=== PATIENT | male | born 2000 | race Hispanic/Latino ===

== ENCOUNTER 2020-08-30 12:55 | Inpatient (IN) | payer SELFPAY, OTHER ==
[~2020-08-30] VITALS: Ht 180.3 cm; Wt 105.7 kg
[~2020-08-30 12:55] MED LIST: ETOMIDATE 2 MG/ML 10 ML INJ IV ONE; MIDAZOLAM HCL 2 MG/2 ML VIAL ONE; SUCCINYLCHOLINE CHLORIDE 20 MG/ML 10ML VIAL ONE; VECURONIUM BROMIDE FOR INJ 20 MG VIAL ONE; WATER STERILE 10 ML VIAL ONE
[2020-08-30 13:35] LABS: BASOPHILS # (AUTO) 0.1 (0.0-0.1); BASOPHILS % 0.3 % (0.0-1.0); EOSINOPHILS # (AUTO) 0.1 (0.0-0.4); EOSINOPHILS % 0.3 % (0.0-6.0); HEMATOCRIT 44.6 % (38.2-49.6); HEMOGLOBIN 15.2 g/dL (14.0-18.0); LYMPHOCYTES # (AUTO) 0.9 (1.0-3.2); LYMPHOCYTES % 3.4 % (18.0-39.1); MEAN CORPUSCULAR HEMOGLOBIN 28.7 pg (28-32); MEAN CORPUSCULAR HGB CONC 34.1 g/dL (31-35); MEAN CORPUSCULAR VOLUME 84.3 fL (81-99); MONOCYTES # (AUTO) 0.6 (0.2-0.8); MONOCYTES % 2.2 % (4.4-11.3); NEUTROPHILS # (AUTO) 23.5 (2.1-6.9); NEUTROPHILS % 92.3 % (38.7-80.0); PLATELET COUNT 314 x10e3/uL (140-360); RED BLOOD COUNT 5.29 x10e6/uL (4.3-5.7); RED CELL DISTRIBUTION WIDTH 12.5 % (11.7-14.4)
[2020-08-30 13:46] LABS: ALANINE AMINOTRANSFERASE 76 IU/L (0-55); ALBUMIN 2.6 g/dL (3.5-5.0); ALBUMIN/GLOBULIN RATIO 0.6 (0.8-2.0); ALKALINE PHOSPHATASE 79 IU/L (40-150); ANION GAP 13.7 mmol/L (8-16); BLOOD UREA NITROGEN 12 mg/dL (7-26); BUN/CREATININE RATIO 18 (6-25); CALCIUM 8.4 mg/dL (8.4-10.2); CARBON DIOXIDE 23 mmol/L (22-29); CHLORIDE 104 mmol/L (98-107); CREATINE KINASE 114 IU/L (30-200); CREATININE, SERUM 0.66 mg/dL (0.72-1.25); EST GLOMERULAR FILTRATION RATE > 60 ML/MIN (60-); GLUCOSE 131 mg/dL (74-118); POTASSIUM 3.7 mmol/L (3.5-5.1); SODIUM 137 mmol/L (136-145)
[2020-08-30] MEDS ORDERED: ASPIRIN 81 MG CHEW TAB PO ONE (14:45)
[2020-08-30 18:15] VITALS: BP 124/72
[2020-08-30] MEDS ORDERED: LACTATED RINGER'S 1,000 ML INJ ONE (18:45)
[2020-08-30] MEDS ORDERED: ONDANSETRON HCL INJ 2MG/ML 2ML 2 MG/ML VIAL IV PRN (18:45)
[2020-08-30] MEDS ORDERED: DEXMEDETOMIDINE 200MCG/NS 50ML 50 ML IV ONE (19:43)
[2020-08-30] MEDS: DEXMEDETOMIDINE HCL 200 MCG in SODIUM CHLORIDE 0.9% 50ML 48 ML IV SCH (19:52)
[2020-08-30] MEDS: AZITHROMYCIN 500MG/NS 250 ML 250 ML IV SCH (20:25)
[2020-08-30 20:37] LABS: CLARITY,URINE SL CLOUDY (CLEAR); COLOR,URINE ORANGE (YELLOW); KETONES,URINE TRACE (NEGATIVE); LEUKOCYTE ESTERASE ,URINE NEGATIVE (NEGATIVE); NITRITE,URINE NEGATIVE (NEGATIVE); PROTEIN,URINE DIPSTICK >=300 (NEGATIVE); URINE UROBILINOGEN 2 mg/dL (0.2 - 1)
[2020-08-30 20:49] LABS: BACTERIA,URINE MANY /HPF; EPITHELIAL CELLS,URINE FEW /LPF; MUCUS,URINE MANY (RARE)
[2020-08-30 21:00] VITALS: BP 151/99
[2020-08-30] MEDS ORDERED: CEFTRIAXONE SOD 1 GM in DEXTROSE 5% 50ML 50 ML IV SCH (21:00)
[2020-08-30] MEDS: ACETAMINOPHEN 325 MG TAB PO PRN (21:11)
[2020-08-30 21:37] VITALS: BP 151/99
[2020-08-30 22:01] VITALS: BP 124/68
[2020-08-30] MEDS ORDERED: CEFTRIAXONE SOD 1 GM VIAL ONE (22:14)
[2020-08-30] MEDS: CEFTRIAXONE SOD 1 GM in SODIUM CHLORIDE 0.9% 50ML 50 ML IV SCH (22:33)
[2020-08-30] MEDS ORDERED: SODIUM CHLORIDE 0.9% 50ML 50 ML ONE (22:40)
[2020-08-30 23:03] VITALS: BP 113/64
[2020-08-31] VITALS (26 sets, daily range): BP systolic 113–136; BP diastolic 57–96
[2020-08-31] MEDS ORDERED: DEXMEDETOMIDINE 200MCG/NS 50ML 50 ML IV ONE ×2 (00:09→05:50)
[2020-08-31] MEDS: DEXMEDETOMIDINE HCL 200 MCG in SODIUM CHLORIDE 0.9% 50ML 48 ML IV SCH ×5 (00:24→21:26)
[2020-08-31] MEDS: ACETAMINOPHEN 325 MG TAB PO PRN (03:03)
[2020-08-31] MEDS ORDERED: SODIUM CHLORIDE 0.9% 250ML 250 ML ONE ×2 (03:30→16:40)
[2020-08-31] MEDS: DEXAMETHASONE SOD PHOS 10 MG/1 ML VIAL IV SCH (09:01)
[2020-08-31] MEDS: ZINC SULFATE 220 MG CAP PO SCH (09:01)
[2020-08-31] MEDS: ASCORBIC ACID 500 MG TAB PO SCH ×2 (09:01→18:38)
[2020-08-31 11:16] LABS: BASOPHILS % 0.2 % (0.0-1.0); HEMATOCRIT 43.5 % (38.2-49.6); HEMOGLOBIN 14.8 g/dL (14.0-18.0); LYMPHOCYTES # (AUTO) 0.7 (1.0-3.2); LYMPHOCYTES % 3.7 % (18.0-39.1); MEAN CORPUSCULAR HEMOGLOBIN 28.7 pg (28-32); MEAN CORPUSCULAR VOLUME 84.5 fL (81-99); MONOCYTES # (AUTO) 0.3 (0.2-0.8); MONOCYTES % 1.5 % (4.4-11.3); NEUTROPHILS # (AUTO) 18.5 (2.1-6.9); NEUTROPHILS % 93.5 % (38.7-80.0); PLATELET COUNT 355 x10e3/uL (140-360); RED BLOOD COUNT 5.15 x10e6/uL (4.3-5.7); RED CELL DISTRIBUTION WIDTH 12.3 % (11.7-14.4)
[2020-08-31 11:54] LABS: ALANINE AMINOTRANSFERASE 65 IU/L (0-55); ALBUMIN 2.3 g/dL (3.5-5.0); ALBUMIN/GLOBULIN RATIO 0.5 (0.8-2.0); ALKALINE PHOSPHATASE 99 IU/L (40-150); ANION GAP 13.9 mmol/L (8-16); BLOOD UREA NITROGEN 12 mg/dL (7-26); BUN/CREATININE RATIO 19 (6-25); CALCIUM 8.5 mg/dL (8.4-10.2); CARBON DIOXIDE 20 mmol/L (22-29); CHLORIDE 105 mmol/L (98-107); CREATININE, SERUM 0.64 mg/dL (0.72-1.25); EST GLOMERULAR FILTRATION RATE > 60 ML/MIN (60-); GLUCOSE 109 mg/dL (74-118); INR 1.06; POTASSIUM 3.9 mmol/L (3.5-5.1); PROTHROMBIN TIME 14.5 seconds (11.9-14.5); SODIUM 135 mmol/L (136-145)
[2020-08-31 12:37] LABS: CREATINE KINASE 76 IU/L (30-200)
[2020-08-31] MEDS ORDERED: REMDESIVIR 200MG/NS 100ML 200 MG in SODIUM CHLORIDE 0.9% 100 ML 100 ML IV ONE (15:00)
[2020-08-31] MEDS ORDERED: ENOXAPARIN SOD INJ 40 MG/0.4 ML SYR SC SCH (17:00)
[2020-08-31] MEDS: AZITHROMYCIN 500MG/NS 250 ML 250 ML IV SCH (19:20)
[2020-08-31 20:32] LABS: CREATINE KINASE 53 IU/L (30-200)
[2020-08-31] MEDS: CEFTRIAXONE SOD 1 GM in SODIUM CHLORIDE 0.9% 50ML 50 ML IV SCH (21:26)
[2020-08-31] MEDS ORDERED: REMDESIVIR 200MG/NS 100ML 200 MG IV SCH (23:00)
[2020-09-01] VITALS (24 sets, daily range): BP systolic 112–137; BP diastolic 67–91
[2020-09-01] MEDS: ASCORBIC ACID 500 MG TAB PO SCH ×2 (08:19→18:39)
[2020-09-01] MEDS: ZINC SULFATE 220 MG CAP PO SCH (08:19)
[2020-09-01] MEDS: DEXAMETHASONE SOD PHOS 10 MG/1 ML VIAL IV SCH (08:19)
[2020-09-01] MEDS: ENOXAPARIN INJ 80 MG/0.8 ML SYR SC SCH ×2 (08:19→18:39)
[2020-09-01] MEDS: DEXMEDETOMIDINE HCL 200 MCG in SODIUM CHLORIDE 0.9% 50ML 48 ML IV SCH ×3 (08:42→15:15)
[2020-09-01 08:52] LABS: ALANINE AMINOTRANSFERASE 54 IU/L (0-55); ALBUMIN 2.1 g/dL (3.5-5.0); ALBUMIN/GLOBULIN RATIO 0.5 (0.8-2.0); ALKALINE PHOSPHATASE 85 IU/L (40-150); ANION GAP 14.2 mmol/L (8-16); BLOOD UREA NITROGEN 16 mg/dL (7-26); BUN/CREATININE RATIO 26 (6-25); CALCIUM 8.4 mg/dL (8.4-10.2); CARBON DIOXIDE 23 mmol/L (22-29); CHLORIDE 105 mmol/L (98-107); CREATININE, SERUM 0.61 mg/dL (0.72-1.25); EST GLOMERULAR FILTRATION RATE > 60 ML/MIN (60-); GLUCOSE 115 mg/dL (74-118); POTASSIUM 4.2 mmol/L (3.5-5.1); SODIUM 138 mmol/L (136-145)
[2020-09-01] MEDS ORDERED: SODIUM CHLORIDE 0.9% IV SCH (09:00)
[2020-09-01] MEDS ORDERED: CEFTRIAXONE SOD IV SCH (09:00)
[2020-09-01] MEDS ORDERED: ASCORBIC ACID 500 MG TAB PO SCH (09:00)
[2020-09-01] MEDS ORDERED: AZITHROMYCIN 500MG/NS 250 ML 250 ML IV SCH (09:00)
[2020-09-01] MEDS ORDERED: ZINC SULFATE 220 MG CAP PO SCH (09:00)
[2020-09-01 09:03] LABS: HIV 1&2 AB SCREEN NON-REACTIVE (NONREACTIVE)
[2020-09-01 09:08] LABS: BASOPHILS % 0.2 % (0.0-1.0); HEMATOCRIT 43.9 % (38.2-49.6); HEMOGLOBIN 14.9 g/dL (14.0-18.0); LYMPHOCYTES # (AUTO) 1.2 (1.0-3.2); LYMPHOCYTES % 8.5 % (18.0-39.1); MEAN CORPUSCULAR HEMOGLOBIN 28.3 pg (28-32); MEAN CORPUSCULAR HGB CONC 33.9 g/dL (31-35); MEAN CORPUSCULAR VOLUME 83.3 fL (81-99); MONOCYTES # (AUTO) 0.7 (0.2-0.8); MONOCYTES % 4.9 % (4.4-11.3); NEUTROPHILS # (AUTO) 11.7 (2.1-6.9); NEUTROPHILS % 84.7 % (38.7-80.0); PLATELET COUNT 394 x10e3/uL (140-360); RED BLOOD COUNT 5.27 x10e6/uL (4.3-5.7); RED CELL DISTRIBUTION WIDTH 12.4 % (11.7-14.4)
[2020-09-01] MEDS: AZITHROMYCIN 500MG/NS 250 ML 250 ML IV SCH (18:39)
[2020-09-01] MEDS: DEXMEDETOMIDINE HCL 200 MCG in SODIUM CHLORIDE 0.9% 50ML 48 ML IV PRN ×2 (19:49→19:50)
[2020-09-01] MEDS: CEFTRIAXONE SOD 1 GM in SODIUM CHLORIDE 0.9% 50ML 50 ML IV SCH (21:55)
[2020-09-02] VITALS (26 sets, daily range): BP systolic 101–125; BP diastolic 59–94
[2020-09-02] MEDS: DEXMEDETOMIDINE HCL 200 MCG in SODIUM CHLORIDE 0.9% 50ML 48 ML IV PRN ×4 (02:54→18:41)
[2020-09-02 05:32] LABS: BASOPHILS % 0.3 % (0.0-1.0); HEMATOCRIT 46.3 % (38.2-49.6); HEMOGLOBIN 15.4 g/dL (14.0-18.0); LYMPHOCYTES # (AUTO) 1.3 (1.0-3.2); LYMPHOCYTES % 8.9 % (18.0-39.1); MEAN CORPUSCULAR HEMOGLOBIN 28.4 pg (28-32); MEAN CORPUSCULAR HGB CONC 33.3 g/dL (31-35); MEAN CORPUSCULAR VOLUME 85.4 fL (81-99); MONOCYTES # (AUTO) 1.1 (0.2-0.8); MONOCYTES % 7.6 % (4.4-11.3); PLATELET COUNT 457 x10e3/uL (140-360); RED BLOOD COUNT 5.42 x10e6/uL (4.3-5.7); RED CELL DISTRIBUTION WIDTH 12.3 % (11.7-14.4)
[2020-09-02 05:57] LABS: ALANINE AMINOTRANSFERASE 52 IU/L (0-55); ALBUMIN 2.1 g/dL (3.5-5.0); ALBUMIN/GLOBULIN RATIO 0.4 (0.8-2.0); ALKALINE PHOSPHATASE 88 IU/L (40-150); ANION GAP 14.3 mmol/L (8-16); BLOOD UREA NITROGEN 17 mg/dL (7-26); BUN/CREATININE RATIO 28 (6-25); CALCIUM 8.2 mg/dL (8.4-10.2); CARBON DIOXIDE 22 mmol/L (22-29); CHLORIDE 105 mmol/L (98-107); EST GLOMERULAR FILTRATION RATE > 60 ML/MIN (60-); GLUCOSE 112 mg/dL (74-118); POTASSIUM 4.3 mmol/L (3.5-5.1); SODIUM 137 mmol/L (136-145)
[2020-09-02 06:23] LABS: PHOSPHORUS 3.7 MG/DL (2.3-4.7)
[2020-09-02] MEDS: ASCORBIC ACID 500 MG TAB PO SCH ×2 (10:24→17:28)
[2020-09-02] MEDS: DEXAMETHASONE SOD PHOS 10 MG/1 ML VIAL IV SCH (10:24)
[2020-09-02] MEDS: CHOLECALCIFEROL 400 UNIT TAB PO SCH (10:25)
[2020-09-02] MEDS: ENOXAPARIN INJ 80 MG/0.8 ML SYR SC SCH ×2 (10:25→17:28)
[2020-09-02] MEDS: ZINC SULFATE 220 MG CAP PO SCH (10:25)
[2020-09-02] MEDS: FAMOTIDINE 20 MG TAB PO SCH ×2 (10:28→17:28)
[2020-09-02] MEDS ORDERED: SODIUM CHLORIDE 0.9% 250ML 250 ML ONE (14:42)
[2020-09-02] MEDS: REMDESIVIR 100MG/NS 100ML 100 MG IV SCH (15:05)
[2020-09-02] MEDS: AZITHROMYCIN 500MG/NS 250 ML 250 ML IV SCH (17:45)
[2020-09-02] MEDS: CEFTRIAXONE SOD 1 GM in SODIUM CHLORIDE 0.9% 50ML 50 ML IV SCH (20:59)
[2020-09-03] VITALS (31 sets, daily range): BP systolic 101–125; BP diastolic 54–96
[2020-09-03] MEDS: ZOLPIDEM TARTRATE 5 MG TAB PO PRN (00:40)
[2020-09-03] MEDS: DEXMEDETOMIDINE HCL 200 MCG in SODIUM CHLORIDE 0.9% 50ML 48 ML IV PRN ×2 (02:07→11:30)
[2020-09-03 06:17] LABS: BASOPHILS # (AUTO) 0.1 (0.0-0.1); BASOPHILS % 0.5 % (0.0-1.0); EOSINOPHILS % 0.2 % (0.0-6.0); HEMATOCRIT 46.7 % (38.2-49.6); HEMOGLOBIN 15.6 g/dL (14.0-18.0); LYMPHOCYTES # (AUTO) 1.6 (1.0-3.2); LYMPHOCYTES % 9.6 % (18.0-39.1); MEAN CORPUSCULAR HEMOGLOBIN 28.4 pg (28-32); MEAN CORPUSCULAR HGB CONC 33.4 g/dL (31-35); MEAN CORPUSCULAR VOLUME 84.9 fL (81-99); MONOCYTES # (AUTO) 1.4 (0.2-0.8); MONOCYTES % 8.4 % (4.4-11.3); NEUTROPHILS # (AUTO) 12.4 (2.1-6.9); NEUTROPHILS % 75.9 % (38.7-80.0); PLATELET COUNT 506 x10e3/uL (140-360); RED CELL DISTRIBUTION WIDTH 12.2 % (11.7-14.4)
[2020-09-03 06:35] LABS: ALANINE AMINOTRANSFERASE 62 IU/L (0-55); ALBUMIN 2.3 g/dL (3.5-5.0); ALBUMIN/GLOBULIN RATIO 0.5 (0.8-2.0); ALKALINE PHOSPHATASE 89 IU/L (40-150); ANION GAP 13.9 mmol/L (8-16); BLOOD UREA NITROGEN 15 mg/dL (7-26); BUN/CREATININE RATIO 25 (6-25); CALCIUM 8.4 mg/dL (8.4-10.2); CARBON DIOXIDE 24 mmol/L (22-29); CHLORIDE 103 mmol/L (98-107); CREATININE, SERUM 0.61 mg/dL (0.72-1.25); EST GLOMERULAR FILTRATION RATE > 60 ML/MIN (60-); GLUCOSE 91 mg/dL (74-118); POTASSIUM 3.9 mmol/L (3.5-5.1); SODIUM 137 mmol/L (136-145)
[2020-09-03] MEDS: ASCORBIC ACID 500 MG TAB PO SCH ×2 (09:10→17:26)
[2020-09-03] MEDS: ZINC SULFATE 220 MG CAP PO SCH (09:10)
[2020-09-03] MEDS: DEXAMETHASONE SOD PHOS 10 MG/1 ML VIAL IV SCH (09:10)
[2020-09-03] MEDS: ENOXAPARIN INJ 80 MG/0.8 ML SYR SC SCH ×2 (09:10→17:27)
[2020-09-03] MEDS: CHOLECALCIFEROL 400 UNIT TAB PO SCH (09:10)
[2020-09-03] MEDS: FAMOTIDINE 20 MG TAB PO SCH ×2 (09:10→17:26)
[2020-09-03 14:05] LABS: BAND NEUTROPHILS % (MANUAL) 1 %; LYMPHOCYTES % (MANUAL) 4 % (19-48); MONOCYTES % (MANUAL) 11 % (3.4-9.0); MYELOCYTES % (MANUAL) 3 % (0-0); NEUTROPHILS % (MANUAL) 75 % (40-74); PLATELET ESTIMATE MODERATELY INCREASED; PLATELET MORPHOLOGY COMMENT NORMAL; RBC MORPHOLOGY COMMENT NORMAL
[2020-09-03] MEDS: REMDESIVIR 100MG/NS 100ML 100 MG IV SCH (14:14)
[2020-09-03] MEDS: AZITHROMYCIN 500MG/NS 250 ML 250 ML IV SCH (18:46)
[2020-09-03] MEDS: CEFTRIAXONE SOD 1 GM in SODIUM CHLORIDE 0.9% 50ML 50 ML IV SCH (22:40)
[2020-09-04] VITALS (22 sets, daily range): BP systolic 95–124; BP diastolic 58–79
[2020-09-04] MEDS: DEXMEDETOMIDINE HCL 200 MCG in SODIUM CHLORIDE 0.9% 50ML 48 ML IV PRN ×4 (01:44→18:44)
[2020-09-04 05:47] LABS: BASOPHILS # (AUTO) 0.1 (0.0-0.1); BASOPHILS % 0.8 % (0.0-1.0); EOSINOPHILS # (AUTO) 0.1 (0.0-0.4); EOSINOPHILS % 0.6 % (0.0-6.0); HEMATOCRIT 42.9 % (38.2-49.6); HEMOGLOBIN 14.3 g/dL (14.0-18.0); LYMPHOCYTES # (AUTO) 1.6 (1.0-3.2); LYMPHOCYTES % 9.9 % (18.0-39.1); MEAN CORPUSCULAR HGB CONC 33.3 g/dL (31-35); MEAN CORPUSCULAR VOLUME 84.1 fL (81-99); MONOCYTES # (AUTO) 0.9 (0.2-0.8); MONOCYTES % 5.5 % (4.4-11.3); NEUTROPHILS # (AUTO) 12.3 (2.1-6.9); NEUTROPHILS % 74.7 % (38.7-80.0); PLATELET COUNT 442 x10e3/uL (140-360); RED CELL DISTRIBUTION WIDTH 12.3 % (11.7-14.4)
[2020-09-04 06:19] LABS: ALANINE AMINOTRANSFERASE 72 IU/L (0-55); ALBUMIN 2.3 g/dL (3.5-5.0); ALBUMIN/GLOBULIN RATIO 0.5 (0.8-2.0); ALKALINE PHOSPHATASE 76 IU/L (40-150); ANION GAP 13.2 mmol/L (8-16); BLOOD UREA NITROGEN 11 mg/dL (7-26); BUN/CREATININE RATIO 17 (6-25); CALCIUM 8.2 mg/dL (8.4-10.2); CARBON DIOXIDE 24 mmol/L (22-29); CHLORIDE 102 mmol/L (98-107); CREATININE, SERUM 0.65 mg/dL (0.72-1.25); EST GLOMERULAR FILTRATION RATE > 60 ML/MIN (60-); GLUCOSE 88 mg/dL (74-118); POTASSIUM 4.2 mmol/L (3.5-5.1); SODIUM 135 mmol/L (136-145)
[2020-09-04] MEDS: ZINC SULFATE 220 MG CAP PO SCH (08:18)
[2020-09-04] MEDS: ASCORBIC ACID 500 MG TAB PO SCH ×2 (08:18→16:46)
[2020-09-04] MEDS: DEXAMETHASONE SOD PHOS 10 MG/1 ML VIAL IV SCH (08:18)
[2020-09-04] MEDS: CHOLECALCIFEROL 400 UNIT TAB PO SCH (08:18)
[2020-09-04] MEDS: ENOXAPARIN INJ 80 MG/0.8 ML SYR SC SCH ×2 (08:18→16:46)
[2020-09-04] MEDS: FAMOTIDINE 20 MG TAB PO SCH ×2 (08:18→16:42)
[2020-09-04] MEDS ORDERED: SODIUM CHLORIDE 0.9% 250ML 250 ML ONE (09:37)
[2020-09-04] MEDS: REMDESIVIR 100MG/NS 100ML 100 MG IV SCH (13:53)
[2020-09-04] MEDS: AZITHROMYCIN 500MG/NS 250 ML 250 ML IV SCH (18:44)
[2020-09-04] MEDS: CEFTRIAXONE SOD 1 GM in SODIUM CHLORIDE 0.9% 50ML 50 ML IV SCH (21:55)
[2020-09-05] VITALS (26 sets, daily range): BP systolic 95–139; BP diastolic 44–79
[2020-09-05] MEDS: ZOLPIDEM TARTRATE 5 MG TAB PO PRN (00:32)
[2020-09-05] MEDS: DEXMEDETOMIDINE HCL 200 MCG in SODIUM CHLORIDE 0.9% 50ML 48 ML IV PRN ×3 (03:05→14:56)
[2020-09-05] MEDS: ACETAMINOPHEN 325 MG TAB PO PRN (06:15)
[2020-09-05 06:37] LABS: BASOPHILS % 0.2 % (0.0-1.0); EOSINOPHILS # (AUTO) 0.2 (0.0-0.4); EOSINOPHILS % 0.9 % (0.0-6.0); HEMATOCRIT 44.4 % (38.2-49.6); HEMOGLOBIN 15.2 g/dL (14.0-18.0); LYMPHOCYTES # (AUTO) 1.5 (1.0-3.2); LYMPHOCYTES % 8.2 % (18.0-39.1); MEAN CORPUSCULAR HEMOGLOBIN 28.9 pg (28-32); MEAN CORPUSCULAR HGB CONC 34.2 g/dL (31-35); MEAN CORPUSCULAR VOLUME 84.4 fL (81-99); MONOCYTES # (AUTO) 0.9 (0.2-0.8); NEUTROPHILS # (AUTO) 13.4 (2.1-6.9); NEUTROPHILS % 73.1 % (38.7-80.0); PLATELET COUNT 461 x10e3/uL (140-360); RED BLOOD COUNT 5.26 x10e6/uL (4.3-5.7); RED CELL DISTRIBUTION WIDTH 12.4 % (11.7-14.4)
[2020-09-05 07:03] LABS: ALANINE AMINOTRANSFERASE 74 IU/L (0-55); ALBUMIN 2.2 g/dL (3.5-5.0); ALBUMIN/GLOBULIN RATIO 0.5 (0.8-2.0); ALKALINE PHOSPHATASE 73 IU/L (40-150); ANION GAP 13.2 mmol/L (8-16); BLOOD UREA NITROGEN 11 mg/dL (7-26); BUN/CREATININE RATIO 16 (6-25); CALCIUM 7.9 mg/dL (8.4-10.2); CARBON DIOXIDE 26 mmol/L (22-29); CHLORIDE 98 mmol/L (98-107); EST GLOMERULAR FILTRATION RATE > 60 ML/MIN (60-); GLUCOSE 88 mg/dL (74-118); POTASSIUM 4.2 mmol/L (3.5-5.1); SODIUM 133 mmol/L (136-145)
[2020-09-05] MEDS: ENOXAPARIN INJ 80 MG/0.8 ML SYR SC SCH (08:37)
[2020-09-05] MEDS: ASCORBIC ACID 500 MG TAB PO SCH (08:37)
[2020-09-05] MEDS: CHOLECALCIFEROL 400 UNIT TAB PO SCH (08:37)
[2020-09-05] MEDS: FAMOTIDINE 20 MG TAB PO SCH (08:37)
[2020-09-05] MEDS: ZINC SULFATE 220 MG CAP PO SCH (08:37)
[2020-09-05] MEDS: DEXAMETHASONE SOD PHOS 10 MG/1 ML VIAL IV SCH (08:37)
[2020-09-05 09:01] LABS: BAND NEUTROPHILS % (MANUAL) 9 %; LYMPHOCYTES % (MANUAL) 9 % (19-48); MONOCYTES % (MANUAL) 5 % (3.4-9.0); NEUTROPHILS % (MANUAL) 77 % (40-74)
[2020-09-05] MEDS: REMDESIVIR 100MG/NS 100ML 100 MG IV SCH (14:56)
[2020-09-05] MEDS: CEFTRIAXONE SOD 1 GM in SODIUM CHLORIDE 0.9% 50ML 50 ML IV SCH (21:00)
[2020-09-05] MEDS: AZITHROMYCIN 500MG/NS 250 ML 250 ML IV SCH (21:00)
[2020-09-06] VITALS (27 sets, daily range): BP systolic 89–139; BP diastolic 42–96
[2020-09-06 05:03] LABS: BASOPHILS % 0.1 % (0.0-1.0); EOSINOPHILS % 0.1 % (0.0-6.0); HEMATOCRIT 46.2 % (38.2-49.6); HEMOGLOBIN 15.5 g/dL (14.0-18.0); LYMPHOCYTES # (AUTO) 1.4 (1.0-3.2); LYMPHOCYTES % 5.9 % (18.0-39.1); MEAN CORPUSCULAR HEMOGLOBIN 28.1 pg (28-32); MEAN CORPUSCULAR HGB CONC 33.5 g/dL (31-35); MEAN CORPUSCULAR VOLUME 83.8 fL (81-99); MONOCYTES # (AUTO) 1.2 (0.2-0.8); NEUTROPHILS # (AUTO) 18.6 (2.1-6.9); NEUTROPHILS % 80.8 % (38.7-80.0); PLATELET COUNT 404 x10e3/uL (140-360); RED BLOOD COUNT 5.51 x10e6/uL (4.3-5.7); RED CELL DISTRIBUTION WIDTH 12.2 % (11.7-14.4)
[2020-09-06 05:24] LABS: ALANINE AMINOTRANSFERASE 68 IU/L (0-55); ALBUMIN 2.3 g/dL (3.5-5.0); ALBUMIN/GLOBULIN RATIO 0.5 (0.8-2.0); ALKALINE PHOSPHATASE 81 IU/L (40-150); ANION GAP 16.2 mmol/L (8-16); BLOOD UREA NITROGEN 13 mg/dL (7-26); BUN/CREATININE RATIO 22 (6-25); CALCIUM 8.4 mg/dL (8.4-10.2); CARBON DIOXIDE 21 mmol/L (22-29); CHLORIDE 101 mmol/L (98-107); CREATININE, SERUM 0.58 mg/dL (0.72-1.25); EST GLOMERULAR FILTRATION RATE > 60 ML/MIN (60-); GLUCOSE 92 mg/dL (74-118); POTASSIUM 4.2 mmol/L (3.5-5.1); SODIUM 134 mmol/L (136-145)
[2020-09-06] MEDS: FAMOTIDINE 20 MG TAB PO SCH ×2 (07:30→18:17)
[2020-09-06] MEDS: ASCORBIC ACID 500 MG TAB PO SCH ×2 (09:00→18:17)
[2020-09-06] MEDS: ENOXAPARIN INJ 80 MG/0.8 ML SYR SC SCH ×2 (09:00→18:17)
[2020-09-06] MEDS: CHOLECALCIFEROL 400 UNIT TAB PO SCH (09:00)
[2020-09-06] MEDS ORDERED: DEXAMETHASONE SOD PHOS 10 MG/1 ML VIAL IV SCH (09:00)
[2020-09-06] MEDS: ZINC SULFATE 220 MG CAP PO SCH (09:00)
[2020-09-06] MEDS: DEXAMETHASONE SOD PHOS 10 MG/1 ML VIAL IV SCH (09:00)
[2020-09-06] MEDS ORDERED: ALBUTEROL/IPRATROPIUM 3 ML NEB ONE (09:11)
[2020-09-06 11:08] LABS: BAND NEUTROPHILS % (MANUAL) 1 %; LYMPHOCYTES % (MANUAL) 11 % (19-48); MONOCYTES % (MANUAL) 6 % (3.4-9.0); MYELOCYTES % (MANUAL) 3 % (0-0); NEUTROPHILS % (MANUAL) 76 % (40-74)
[2020-09-06 11:09] LABS: PLATELET ESTIMATE SLIGHTLY INCREASED; PLATELET MORPHOLOGY COMMENT FEW LARGE; RBC MORPHOLOGY COMMENT NORMAL
[2020-09-06] MEDS ORDERED: PIPERACILLIN/TAZOBAC 3.375 GM in SODIUM CHLORIDE 0.9% 50ML 50 ML IV SCH (12:00)
[2020-09-06] MEDS: ALBUTEROL/IPRATROPIUM 3 ML NEB NEB SCH ×3 (15:00→23:00)
[2020-09-06] MEDS ORDERED: FENTANYL 2000MCG/NS 250 250 ML ONE (17:02)
[2020-09-06] MEDS: DEXMEDETOMIDINE HCL 200 MCG in SODIUM CHLORIDE 0.9% 50ML 48 ML IV PRN (19:30)
[2020-09-07] VITALS (25 sets, daily range): BP systolic 83–146; BP diastolic 58–79
[2020-09-07] MEDS: DEXMEDETOMIDINE HCL 200 MCG in SODIUM CHLORIDE 0.9% 50ML 48 ML IV PRN ×2 (00:39→06:30)
[2020-09-07] MEDS: ALBUTEROL/IPRATROPIUM 3 ML NEB NEB SCH ×6 (03:00→23:00)
[2020-09-07 05:05] LABS: BASOPHILS # (AUTO) 0.1 (0.0-0.1); BASOPHILS % 0.4 % (0.0-1.0); EOSINOPHILS % 0.1 % (0.0-6.0); HEMATOCRIT 47.5 % (38.2-49.6); HEMOGLOBIN 15.8 g/dL (14.0-18.0); LYMPHOCYTES % 3.6 % (18.0-39.1); MEAN CORPUSCULAR HEMOGLOBIN 28.5 pg (28-32); MEAN CORPUSCULAR HGB CONC 33.3 g/dL (31-35); MEAN CORPUSCULAR VOLUME 85.7 fL (81-99); MONOCYTES # (AUTO) 1.5 (0.2-0.8); MONOCYTES % 5.3 % (4.4-11.3); NEUTROPHILS # (AUTO) 23.8 (2.1-6.9); NEUTROPHILS % 84.9 % (38.7-80.0); PLATELET COUNT 321 x10e3/uL (140-360); RED BLOOD COUNT 5.54 x10e6/uL (4.3-5.7); RED CELL DISTRIBUTION WIDTH 12.3 % (11.7-14.4)
[2020-09-07 05:57] LABS: ALANINE AMINOTRANSFERASE 66 IU/L (0-55); ALBUMIN 2.3 g/dL (3.5-5.0); ALBUMIN/GLOBULIN RATIO 0.5 (0.8-2.0); ALKALINE PHOSPHATASE 99 IU/L (40-150); ANION GAP 15.2 mmol/L (8-16); BLOOD UREA NITROGEN 14 mg/dL (7-26); BUN/CREATININE RATIO 25 (6-25); CALCIUM 8.4 mg/dL (8.4-10.2); CARBON DIOXIDE 21 mmol/L (22-29); CHLORIDE 101 mmol/L (98-107); CREATININE, SERUM 0.55 mg/dL (0.72-1.25); EST GLOMERULAR FILTRATION RATE > 60 ML/MIN (60-); GLUCOSE 92 mg/dL (74-118); POTASSIUM 4.2 mmol/L (3.5-5.1); SODIUM 133 mmol/L (136-145)
[2020-09-07] MEDS ORDERED: DEXMEDETOMIDINE 200MCG/NS 50ML 50 ML IV ONE (06:19)
[2020-09-07] MEDS: DEXAMETHASONE SOD PHOS 10 MG/1 ML VIAL IV SCH (08:17)
[2020-09-07] MEDS: CHOLECALCIFEROL 400 UNIT TAB PO SCH (08:17)
[2020-09-07] MEDS: ASCORBIC ACID 500 MG TAB PO SCH ×2 (08:17→17:58)
[2020-09-07] MEDS: ZINC SULFATE 220 MG CAP PO SCH (08:17)
[2020-09-07] MEDS: FAMOTIDINE 20 MG TAB PO SCH ×2 (08:17→17:58)
[2020-09-07] MEDS: ENOXAPARIN INJ 80 MG/0.8 ML SYR SC SCH (08:17)
[2020-09-07 08:37] LABS: LYMPHOCYTES % (MANUAL) 2 % (19-48); MONOCYTES % (MANUAL) 4 % (3.4-9.0); MYELOCYTES % (MANUAL) 1 % (0-0); NEUTROPHILS % (MANUAL) 93 % (40-74); PLATELET ESTIMATE ADEQUATE; PLATELET MORPHOLOGY COMMENT NORMAL; RBC MORPHOLOGY COMMENT NORMAL
[2020-09-07] MEDS ORDERED: VECURONIUM BROMIDE FOR INJ 20 MG VIAL ONE (10:07)
[2020-09-07] MEDS ORDERED: LACTATED RINGER'S 1,000 ML ONE ×2 (10:19→14:36)
[2020-09-07] MEDS ORDERED: SODIUM CHLORIDE 0.9% 1000ML 1,000 ML ONE (11:03)
[2020-09-07] MEDS ORDERED: VANCOMYCIN 1GM/NS 250 ML 250 ML IV ONE ×2 (11:30→14:30)
[2020-09-07] MEDS: ACETAMINOPHEN 325 MG TAB PO PRN ×2 (12:00→18:00)
[2020-09-07] MEDS: FENTANYL 2000MCG/NS 250 250 ML IV SCH ×2 (12:44→23:27)
[2020-09-07] MEDS: MIDAZOLAM HCL 5MG/ML 10ML VIAL 100 ML IV PRN ×3 (12:44→20:42)
[2020-09-07 12:50] LABS: ABG PH 7.19 (7.35-7.45)
[2020-09-07 12:51] LABS: ABG HCO3 27 mmol/L (22-26); ABG PCO2 74 mmHg (35-45); ABG PO2 86 mmHg (80-105); ABG TCO2 29
[2020-09-07] MEDS ORDERED: SODIUM CHLORIDE 0.9% 250ML 250 ML ONE (13:14)
[2020-09-07] MEDS: MEROPENEM 1GRAM 1 GM in SODIUM CHLORIDE 0.9% 100 ML 100 ML IV SCH ×2 (13:20→20:49)
[2020-09-07] MEDS: ROCURONIUM BROMIDE 1,250 MG in SODIUM CHLORIDE 0.9% 250ML 125 ML IV SCH (13:20)
[2020-09-07] MEDS ORDERED: LACTATED RINGER'S 500 ML IV ONE (14:45)
[2020-09-07 15:50] LABS: ABG PH 7.22 (7.35-7.45)
[2020-09-07 15:51] LABS: ABG HCO3 27 mmol/L (22-26); ABG PCO2 66 mmHg (35-45); ABG PO2 82 mmHg (80-105); ABG TCO2 29
[2020-09-07] MEDS: PROPOFOL IV EMULSION 10MG/ML 100 ML IV SCH ×2 (17:58→23:01)
[2020-09-07] MEDS ORDERED: LACTATED RINGER'S 500 ML INJ ONE (18:15)
[2020-09-07] MEDS: ENOXAPARIN SODIUM INJ 100 MG/ML SYR SC SCH (20:49)
[2020-09-08] VITALS (25 sets, daily range): BP systolic 94–111; BP diastolic 50–65
[2020-09-08] MEDS: ACETAMINOPHEN 325 MG TAB PO PRN ×3 (00:49→21:08)
[2020-09-08] MEDS: MIDAZOLAM HCL 5MG/ML 10ML VIAL 100 ML IV PRN ×3 (02:00→12:05)
[2020-09-08] MEDS: ALBUTEROL/IPRATROPIUM 3 ML NEB NEB SCH (03:00)
[2020-09-08 04:49] LABS: BASOPHILS # (AUTO) 0.1 (0.0-0.1); BASOPHILS % 0.4 % (0.0-1.0); HEMATOCRIT 43.7 % (38.2-49.6); HEMOGLOBIN 13.9 g/dL (14.0-18.0); LYMPHOCYTES # (AUTO) 1.1 (1.0-3.2); LYMPHOCYTES % 3.6 % (18.0-39.1); MEAN CORPUSCULAR HEMOGLOBIN 28.6 pg (28-32); MEAN CORPUSCULAR HGB CONC 31.8 g/dL (31-35); MEAN CORPUSCULAR VOLUME 89.9 fL (81-99); MONOCYTES # (AUTO) 1.6 (0.2-0.8); NEUTROPHILS # (AUTO) 26.9 (2.1-6.9); NEUTROPHILS % 86.5 % (38.7-80.0); PLATELET COUNT 333 x10e3/uL (140-360); RED BLOOD COUNT 4.86 x10e6/uL (4.3-5.7); RED CELL DISTRIBUTION WIDTH 12.8 % (11.7-14.4)
[2020-09-08] MEDS ORDERED: ROCURONIUM BROMIDE 250 ML IV ONE (04:54)
[2020-09-08] MEDS: ROCURONIUM BROMIDE 1,250 MG in SODIUM CHLORIDE 0.9% 250ML 125 ML IV SCH ×2 (04:59→22:51)
[2020-09-08] MEDS: MEROPENEM 1GRAM 1 GM in SODIUM CHLORIDE 0.9% 100 ML 100 ML IV SCH ×3 (05:06→21:07)
[2020-09-08 05:13] LABS: ALANINE AMINOTRANSFERASE 63 IU/L (0-55); ALBUMIN/GLOBULIN RATIO 0.4 (0.8-2.0); ALKALINE PHOSPHATASE 86 IU/L (40-150); ANION GAP 13.1 mmol/L (8-16); BLOOD UREA NITROGEN 14 mg/dL (7-26); BUN/CREATININE RATIO 22 (6-25); CALCIUM 8.3 mg/dL (8.4-10.2); CARBON DIOXIDE 25 mmol/L (22-29); CHLORIDE 103 mmol/L (98-107); CREATININE, SERUM 0.63 mg/dL (0.72-1.25); EST GLOMERULAR FILTRATION RATE > 60 ML/MIN (60-); GLUCOSE 103 mg/dL (74-118); POTASSIUM 5.1 mmol/L (3.5-5.1); SODIUM 136 mmol/L (136-145)
[2020-09-08] MEDS: FENTANYL 2000MCG/NS 250 250 ML IV SCH ×3 (05:48→20:00)
[2020-09-08] MEDS: FAMOTIDINE 20 MG TAB PO SCH ×2 (07:42→15:55)
[2020-09-08] MEDS: ASCORBIC ACID 500 MG TAB PO SCH ×2 (07:56→15:55)
[2020-09-08] MEDS: ENOXAPARIN SODIUM INJ 100 MG/ML SYR SC SCH ×2 (07:56→21:07)
[2020-09-08] MEDS: ZINC SULFATE 220 MG CAP PO SCH (07:56)
[2020-09-08] MEDS: CHOLECALCIFEROL 400 UNIT TAB PO SCH (07:56)
[2020-09-08 08:52] LABS: LYMPHOCYTES % (MANUAL) 2 % (19-48); MONOCYTES % (MANUAL) 4 % (3.4-9.0); MYELOCYTES % (MANUAL) 1 % (0-0); NEUTROPHILS % (MANUAL) 93 % (40-74); PLATELET ESTIMATE ADEQUATE; PLATELET MORPHOLOGY COMMENT NORMAL; RBC MORPHOLOGY COMMENT NORMAL
[2020-09-08] MEDS ORDERED: ALBUTEROL/IPRATROPIUM 3 ML NEB NEB PRN (09:15)
[2020-09-08] MEDS: PROPOFOL IV EMULSION 10MG/ML 100 ML IV SCH ×2 (10:14→22:51)
[2020-09-08] MEDS ORDERED: ACETAMINOPHEN 1000 MG/100 ML IV ONE (10:15)
[2020-09-08 10:50] LABS: ABG HCO3 26 mmol/L (22-26); ABG PCO2 50 mmHg (35-45); ABG PH 7.33 (7.35-7.45); ABG PO2 79 mmHg (80-105); ABG TCO2 28
[2020-09-08] MEDS: VANCOMYCIN 1GM/NS 250 ML 250 ML IV SCH (11:10)
[2020-09-08] MEDS ORDERED: SODIUM CHLORIDE 0.9% 250ML 250 ML ONE (20:18)
[2020-09-08] MEDS ORDERED: HEPARIN SOD/SOD CHLORIDE 1,000 ML ONE (21:47)
[2020-09-09] VITALS (26 sets, daily range): BP systolic 101–138; BP diastolic 51–64
[2020-09-09] MEDS: PROPOFOL IV EMULSION 10MG/ML 100 ML IV SCH ×4 (01:30→23:30)
[2020-09-09] MEDS: FENTANYL 2000MCG/NS 250 250 ML IV SCH ×4 (02:00→22:13)
[2020-09-09 05:20] LABS: BASOPHILS # (AUTO) 0.2 (0.0-0.1); BASOPHILS % 0.6 % (0.0-1.0); EOSINOPHILS # (AUTO) 0.1 (0.0-0.4); EOSINOPHILS % 0.4 % (0.0-6.0); HEMATOCRIT 42.4 % (38.2-49.6); HEMOGLOBIN 13.4 g/dL (14.0-18.0); LYMPHOCYTES # (AUTO) 1.3 (1.0-3.2); LYMPHOCYTES % 4.6 % (18.0-39.1); MEAN CORPUSCULAR HEMOGLOBIN 28.7 pg (28-32); MEAN CORPUSCULAR HGB CONC 31.6 g/dL (31-35); MEAN CORPUSCULAR VOLUME 90.8 fL (81-99); MONOCYTES # (AUTO) 1.6 (0.2-0.8); MONOCYTES % 5.6 % (4.4-11.3); NEUTROPHILS # (AUTO) 23.4 (2.1-6.9); NEUTROPHILS % 83.6 % (38.7-80.0); PLATELET COUNT 299 x10e3/uL (140-360); RED BLOOD COUNT 4.67 x10e6/uL (4.3-5.7); RED CELL DISTRIBUTION WIDTH 13.3 % (11.7-14.4)
[2020-09-09 05:47] LABS: ALANINE AMINOTRANSFERASE 41 IU/L (0-55); ALBUMIN 1.9 g/dL (3.5-5.0); ALBUMIN/GLOBULIN RATIO 0.4 (0.8-2.0); ALKALINE PHOSPHATASE 74 IU/L (40-150); ANION GAP 15.1 mmol/L (8-16); BLOOD UREA NITROGEN 10 mg/dL (7-26); BUN/CREATININE RATIO 19 (6-25); CALCIUM 7.7 mg/dL (8.4-10.2); CARBON DIOXIDE 26 mmol/L (22-29); CHLORIDE 101 mmol/L (98-107); CREATININE, SERUM 0.53 mg/dL (0.72-1.25); EST GLOMERULAR FILTRATION RATE > 60 ML/MIN (60-); GLUCOSE 110 mg/dL (74-118); POTASSIUM 4.1 mmol/L (3.5-5.1); SODIUM 138 mmol/L (136-145)
[2020-09-09] MEDS: MEROPENEM 1GRAM 1 GM in SODIUM CHLORIDE 0.9% 100 ML 100 ML IV SCH ×3 (06:00→20:30)
[2020-09-09] MEDS: ACETAMINOPHEN 325 MG TAB PO PRN (06:00)
[2020-09-09 06:40] LABS: BAND NEUTROPHILS % (MANUAL) 1 %; LYMPHOCYTES % (MANUAL) 3 % (19-48); MONOCYTES % (MANUAL) 7 % (3.4-9.0); MYELOCYTES % (MANUAL) 3 % (0-0); NEUTROPHILS % (MANUAL) 86 % (40-74); PLATELET ESTIMATE ADEQUATE; PLATELET MORPHOLOGY COMMENT NORMAL; RBC MORPHOLOGY COMMENT NORMAL
[2020-09-09] MEDS: ASCORBIC ACID 500 MG TAB PO SCH ×2 (08:01→15:24)
[2020-09-09] MEDS: ZINC SULFATE 220 MG CAP PO SCH (08:01)
[2020-09-09] MEDS: ENOXAPARIN SODIUM INJ 100 MG/ML SYR SC SCH ×2 (08:01→20:30)
[2020-09-09] MEDS: FAMOTIDINE 20 MG TAB PO SCH ×2 (08:01→15:24)
[2020-09-09] MEDS: CHOLECALCIFEROL 400 UNIT TAB PO SCH (08:01)
[2020-09-09 08:13] LABS: ABG HCO3 32 mmol/L (22-26); ABG PCO2 61 mmHg (35-45); ABG PH 7.33 (7.35-7.45); ABG PO2 81 mmHg (80-105); ABG TCO2 34
[2020-09-09] MEDS: MIDAZOLAM HCL 5MG/ML 10ML VIAL 100 ML IV PRN ×3 (09:34→20:30)
[2020-09-09] MEDS: VANCOMYCIN 1GM/NS 250 ML 250 ML IV SCH (10:21)
[2020-09-09] MEDS: ROCURONIUM BROMIDE 1,250 MG in SODIUM CHLORIDE 0.9% 250ML 125 ML IV SCH (19:11)
[2020-09-10] VITALS (25 sets, daily range): BP systolic 101–162; BP diastolic 45–85
[2020-09-10] MEDS: MIDAZOLAM HCL 5MG/ML 10ML VIAL 100 ML IV PRN ×5 (01:26→22:46)
[2020-09-10] MEDS: FENTANYL 2000MCG/NS 250 250 ML IV SCH ×4 (05:19→16:50)
[2020-09-10] MEDS: MEROPENEM 1GRAM 1 GM in SODIUM CHLORIDE 0.9% 100 ML 100 ML IV SCH ×3 (05:19→19:51)
[2020-09-10] MEDS: PROPOFOL IV EMULSION 10MG/ML 100 ML IV SCH ×4 (05:20→22:46)
[2020-09-10] MEDS ORDERED: SODIUM CHLORIDE 0.9% 250ML 250 ML ONE (06:08)
[2020-09-10 06:21] LABS: BASOPHILS # (AUTO) 0.1 (0.0-0.1); BASOPHILS % 0.4 % (0.0-1.0); EOSINOPHILS # (AUTO) 0.3 (0.0-0.4); EOSINOPHILS % 1.2 % (0.0-6.0); HEMATOCRIT 39.9 % (38.2-49.6); HEMOGLOBIN 12.5 g/dL (14.0-18.0); LYMPHOCYTES # (AUTO) 2.3 (1.0-3.2); LYMPHOCYTES % 10.1 % (18.0-39.1); MEAN CORPUSCULAR HEMOGLOBIN 29.2 pg (28-32); MEAN CORPUSCULAR HGB CONC 31.3 g/dL (31-35); MEAN CORPUSCULAR VOLUME 93.2 fL (81-99); MONOCYTES # (AUTO) 1.2 (0.2-0.8); MONOCYTES % 5.3 % (4.4-11.3); NEUTROPHILS # (AUTO) 17.3 (2.1-6.9); NEUTROPHILS % 77.8 % (38.7-80.0); PLATELET COUNT 215 x10e3/uL (140-360); RED BLOOD COUNT 4.28 x10e6/uL (4.3-5.7); RED CELL DISTRIBUTION WIDTH 13.4 % (11.7-14.4)
[2020-09-10 06:51] LABS: ALANINE AMINOTRANSFERASE 33 IU/L (0-55); ALBUMIN 1.7 g/dL (3.5-5.0); ALBUMIN/GLOBULIN RATIO 0.4 (0.8-2.0); ALKALINE PHOSPHATASE 83 IU/L (40-150); ANION GAP 12.1 mmol/L (8-16); BLOOD UREA NITROGEN 6 mg/dL (7-26); BUN/CREATININE RATIO 14 (6-25); CALCIUM 7.7 mg/dL (8.4-10.2); CARBON DIOXIDE 33 mmol/L (22-29); CHLORIDE 97 mmol/L (98-107); CREATININE, SERUM 0.44 mg/dL (0.72-1.25); EST GLOMERULAR FILTRATION RATE > 60 ML/MIN (60-); GLUCOSE 107 mg/dL (74-118); POTASSIUM 4.1 mmol/L (3.5-5.1); SODIUM 138 mmol/L (136-145)
[2020-09-10 07:02] LABS: ABG PH 7.32 (7.35-7.45)
[2020-09-10 07:03] LABS: ABG HCO3 37 mmol/L (22-26); ABG PCO2 73 mmHg (35-45); ABG PO2 63 mmHg (80-105); ABG TCO2 39
[2020-09-10] MEDS: FAMOTIDINE 20 MG TAB PO SCH ×2 (08:06→15:35)
[2020-09-10] MEDS: ASCORBIC ACID 500 MG TAB PO SCH ×2 (08:06→17:17)
[2020-09-10] MEDS: ENOXAPARIN SODIUM INJ 100 MG/ML SYR SC SCH ×2 (08:06→19:51)
[2020-09-10] MEDS: CHOLECALCIFEROL 400 UNIT TAB PO SCH (08:06)
[2020-09-10] MEDS: ZINC SULFATE 220 MG CAP PO SCH (08:06)
[2020-09-10] MEDS ORDERED: ALBUMIN 25% 25GM 100ML 0.25 GM/ML BTL IV SCH (09:00)
[2020-09-10] MEDS ORDERED: FUROSEMIDE INJ 10 MG/ML 4 ML VIAL IV ONE (09:00)
[2020-09-10 09:29] LABS: BAND NEUTROPHILS % (MANUAL) 1 %; EOSINOPHILS % (MANUAL) 4 % (0-7); LYMPHOCYTES % (MANUAL) 9 % (19-48); MONOCYTES % (MANUAL) 5 % (3.4-9.0); MYELOCYTES % (MANUAL) 3 % (0-0); NEUTROPHILS % (MANUAL) 76 % (40-74); PLATELET ESTIMATE ADEQUATE; PLATELET MORPHOLOGY COMMENT NORMAL; RBC MORPHOLOGY COMMENT NORMAL
[2020-09-10] MEDS: ALBUMIN 25% 25GM 100ML 100 ML IV SCH ×2 (09:36→17:17)
[2020-09-10] MEDS: ACETAZOLAMIDE 250 MG TAB PO SCH ×3 (09:37→19:51)
[2020-09-10] MEDS: ACETAMINOPHEN 325 MG TAB PO PRN ×2 (10:02→22:47)
[2020-09-10] MEDS ORDERED: ACETAMINOPHEN 1000 MG/100 ML IV ONE (11:35)
[2020-09-10] MEDS: VANCOMYCIN 1GM/NS 250 ML 250 ML IV SCH (11:47)
[2020-09-10 15:03] LABS: ABG PCO2 83 mmHg (35-45); ABG PH 7.28 (7.35-7.45)
[2020-09-10 15:04] LABS: ABG HCO3 38 mmol/L (22-26); ABG PO2 77 mmHg (80-105); ABG TCO2 41
[2020-09-10] MEDS: ROCURONIUM BROMIDE 1,250 MG in SODIUM CHLORIDE 0.9% 250ML 125 ML IV SCH (22:45)
[2020-09-11] VITALS (24 sets, daily range): BP systolic 105–123; BP diastolic 48–95
[2020-09-11] MEDS: ALBUMIN 25% 25GM 100ML 100 ML IV SCH (00:27)
[2020-09-11] MEDS: FENTANYL 2000MCG/NS 250 250 ML IV SCH ×4 (00:28→18:47)
[2020-09-11] MEDS: MIDAZOLAM HCL 5MG/ML 10ML VIAL 100 ML IV PRN ×5 (03:54→23:09)
[2020-09-11] MEDS: PROPOFOL IV EMULSION 10MG/ML 100 ML IV SCH ×5 (04:05→23:43)
[2020-09-11] MEDS: MEROPENEM 1GRAM 1 GM in SODIUM CHLORIDE 0.9% 100 ML 100 ML IV SCH ×2 (05:57→13:44)
[2020-09-11 06:04] LABS: BASOPHILS # (AUTO) 0.1 (0.0-0.1); BASOPHILS % 0.4 % (0.0-1.0); EOSINOPHILS # (AUTO) 0.2 (0.0-0.4); EOSINOPHILS % 1.2 % (0.0-6.0); HEMOGLOBIN 11.5 g/dL (14.0-18.0); LYMPHOCYTES # (AUTO) 1.3 (1.0-3.2); LYMPHOCYTES % 6.6 % (18.0-39.1); MEAN CORPUSCULAR HEMOGLOBIN 28.3 pg (28-32); MEAN CORPUSCULAR HGB CONC 30.3 g/dL (31-35); MEAN CORPUSCULAR VOLUME 93.6 fL (81-99); MONOCYTES # (AUTO) 0.8 (0.2-0.8); MONOCYTES % 4.3 % (4.4-11.3); NEUTROPHILS % 82.5 % (38.7-80.0); PLATELET COUNT 179 x10e3/uL (140-360); RED BLOOD COUNT 4.06 x10e6/uL (4.3-5.7); RED CELL DISTRIBUTION WIDTH 13.2 % (11.7-14.4)
[2020-09-11 06:25] LABS: ALANINE AMINOTRANSFERASE 30 IU/L (0-55); ALBUMIN 2.8 g/dL (3.5-5.0); ALBUMIN/GLOBULIN RATIO 0.7 (0.8-2.0); ALKALINE PHOSPHATASE 82 IU/L (40-150); ANION GAP 12.7 mmol/L (8-16); BLOOD UREA NITROGEN 6 mg/dL (7-26); BUN/CREATININE RATIO 13 (6-25); CALCIUM 8.1 mg/dL (8.4-10.2); CARBON DIOXIDE 31 mmol/L (22-29); CHLORIDE 98 mmol/L (98-107); CREATININE, SERUM 0.48 mg/dL (0.72-1.25); EST GLOMERULAR FILTRATION RATE > 60 ML/MIN (60-); GLUCOSE 107 mg/dL (74-118); POTASSIUM 3.7 mmol/L (3.5-5.1); SODIUM 138 mmol/L (136-145)
[2020-09-11 07:38] LABS: ABG PCO2 74 mmHg (35-45); ABG PH 7.26 (7.35-7.45); ABG PO2 78 mmHg (80-105)
[2020-09-11 07:39] LABS: ABG HCO3 33 mmol/L (22-26); ABG TCO2 36
[2020-09-11] MEDS: CHOLECALCIFEROL 400 UNIT TAB PO SCH (08:08)
[2020-09-11] MEDS: ASCORBIC ACID 500 MG TAB PO SCH ×2 (08:08→16:54)
[2020-09-11] MEDS: ENOXAPARIN SODIUM INJ 100 MG/ML SYR SC SCH ×2 (08:08→21:54)
[2020-09-11] MEDS: ZINC SULFATE 220 MG CAP PO SCH (08:08)
[2020-09-11] MEDS: ACETAZOLAMIDE 250 MG TAB PO SCH (08:08)
[2020-09-11] MEDS: FAMOTIDINE 20 MG TAB PO SCH ×2 (08:08→16:54)
[2020-09-11] MEDS: ACETAMINOPHEN 325 MG TAB PO PRN ×2 (08:09→14:07)
[2020-09-11] MEDS ORDERED: FUROSEMIDE INJ 10 MG/ML 4 ML VIAL IV ONE (10:30)
[2020-09-11] MEDS: VANCOMYCIN 1GM/NS 250 ML 250 ML IV SCH (10:40)
[2020-09-11] MEDS: ROCURONIUM BROMIDE 1,250 MG in SODIUM CHLORIDE 0.9% 250ML 125 ML IV SCH (12:16)
[2020-09-11 15:30] LABS: ABG HCO3 33 mmol/L (22-26); ABG PCO2 73 mmHg (35-45); ABG PH 7.26 (7.35-7.45); ABG PO2 76 mmHg (80-105); ABG TCO2 35
[2020-09-11] MEDS: IBUPROFEN 100 MG/5 ML SUSP PO PRN (18:08)
[2020-09-11] MEDS: MEROPENEM 1GM 100 ML IV SCH (21:54)
[2020-09-12] VITALS (25 sets, daily range): BP systolic 100–135; BP diastolic 50–64
[2020-09-12] MEDS: FENTANYL 2000MCG/NS 250 250 ML IV SCH ×4 (03:52→23:48)
[2020-09-12] MEDS: MEROPENEM 1GM 100 ML IV SCH ×3 (05:16→21:10)
[2020-09-12 05:42] LABS: BASOPHILS # (AUTO) 0.1 (0.0-0.1); BASOPHILS % 0.4 % (0.0-1.0); EOSINOPHILS # (AUTO) 0.3 (0.0-0.4); EOSINOPHILS % 1.4 % (0.0-6.0); HEMATOCRIT 37.8 % (38.2-49.6); HEMOGLOBIN 11.6 g/dL (14.0-18.0); LYMPHOCYTES # (AUTO) 0.9 (1.0-3.2); LYMPHOCYTES % 4.4 % (18.0-39.1); MEAN CORPUSCULAR HEMOGLOBIN 28.6 pg (28-32); MEAN CORPUSCULAR HGB CONC 30.7 g/dL (31-35); MEAN CORPUSCULAR VOLUME 93.1 fL (81-99); MONOCYTES # (AUTO) 0.8 (0.2-0.8); MONOCYTES % 4.2 % (4.4-11.3); NEUTROPHILS # (AUTO) 17.1 (2.1-6.9); NEUTROPHILS % 84.7 % (38.7-80.0); PLATELET COUNT 185 x10e3/uL (140-360); RED BLOOD COUNT 4.06 x10e6/uL (4.3-5.7); RED CELL DISTRIBUTION WIDTH 13.4 % (11.7-14.4)
[2020-09-12 06:18] LABS: ALANINE AMINOTRANSFERASE 29 IU/L (0-55); ALBUMIN 2.3 g/dL (3.5-5.0); ALBUMIN/GLOBULIN RATIO 0.5 (0.8-2.0); ALKALINE PHOSPHATASE 91 IU/L (40-150); ANION GAP 13.7 mmol/L (8-16); BLOOD UREA NITROGEN 8 mg/dL (7-26); BUN/CREATININE RATIO 17 (6-25); CALCIUM 8.1 mg/dL (8.4-10.2); CARBON DIOXIDE 33 mmol/L (22-29); CHLORIDE 97 mmol/L (98-107); CREATININE, SERUM 0.47 mg/dL (0.72-1.25); EST GLOMERULAR FILTRATION RATE > 60 ML/MIN (60-); GLUCOSE 126 mg/dL (74-118); POTASSIUM 3.7 mmol/L (3.5-5.1); SODIUM 140 mmol/L (136-145)
[2020-09-12 06:35] LABS: ALBUMIN 2.3 g/dL (3.5-5.0); BILIRUBIN,DIRECT 0.7 mg/dL (0.0-0.5)
[2020-09-12] MEDS: MIDAZOLAM HCL 5MG/ML 10ML VIAL 100 ML IV PRN ×4 (06:35→22:15)
[2020-09-12 07:04] LABS: ABG HCO3 38 mmol/L (22-26); ABG PCO2 83 mmHg (35-45); ABG PH 7.27 (7.35-7.45); ABG PO2 74 mmHg (80-105); ABG TCO2 41
[2020-09-12] MEDS: ZINC SULFATE 220 MG CAP PO SCH (08:27)
[2020-09-12] MEDS: ENOXAPARIN SODIUM INJ 100 MG/ML SYR SC SCH ×2 (08:27→21:10)
[2020-09-12] MEDS: PROPOFOL IV EMULSION 10MG/ML 100 ML IV SCH ×3 (08:27→18:19)
[2020-09-12] MEDS: CHOLECALCIFEROL 400 UNIT TAB PO SCH (08:27)
[2020-09-12] MEDS: FAMOTIDINE 20 MG TAB PO SCH ×2 (08:27→16:18)
[2020-09-12] MEDS: ASCORBIC ACID 500 MG TAB PO SCH ×2 (08:27→16:18)
[2020-09-12] MEDS ORDERED: FUROSEMIDE INJ 10 MG/ML 4 ML VIAL IV ONE ×2 (10:00→16:45)
[2020-09-12] MEDS ORDERED: ACETAZOLAMIDE 250 MG TAB PO SCH (10:15)
[2020-09-12] MEDS: ACETAZOLAMIDE 250 MG TAB PO SCH ×2 (10:40→21:10)
[2020-09-12] MEDS: VANCOMYCIN 1GM/NS 250 ML 250 ML IV SCH (10:57)
[2020-09-12] MEDS: IBUPROFEN 100 MG/5 ML SUSP PO PRN (11:12)
[2020-09-12] MEDS: ROCURONIUM BROMIDE 1,250 MG in SODIUM CHLORIDE 0.9% 250ML 125 ML IV SCH (13:13)
[2020-09-12 15:48] LABS: ABG PH 7.34 (7.35-7.45)
[2020-09-12 15:49] LABS: ABG HCO3 38 mmol/L (22-26); ABG PCO2 70 mmHg (35-45); ABG PO2 73 mmHg (80-105); ABG TCO2 40
[2020-09-13] VITALS (26 sets, daily range): BP systolic 118–137; BP diastolic 57–70
[2020-09-13] MEDS: PROPOFOL IV EMULSION 10MG/ML 100 ML IV SCH (00:05)
[2020-09-13] MEDS: MIDAZOLAM HCL 5MG/ML 10ML VIAL 100 ML IV PRN ×4 (03:21→18:58)
[2020-09-13] MEDS: MEROPENEM 1GM 100 ML IV SCH (04:33)
[2020-09-13 05:26] LABS: BASOPHILS # (AUTO) 0.1 (0.0-0.1); BASOPHILS % 0.5 % (0.0-1.0); EOSINOPHILS # (AUTO) 0.2 (0.0-0.4); EOSINOPHILS % 0.9 % (0.0-6.0); HEMATOCRIT 38.5 % (38.2-49.6); HEMOGLOBIN 11.9 g/dL (14.0-18.0); LYMPHOCYTES # (AUTO) 1.1 (1.0-3.2); LYMPHOCYTES % 5.6 % (18.0-39.1); MEAN CORPUSCULAR HEMOGLOBIN 28.7 pg (28-32); MEAN CORPUSCULAR HGB CONC 30.9 g/dL (31-35); MONOCYTES # (AUTO) 0.8 (0.2-0.8); NEUTROPHILS # (AUTO) 15.6 (2.1-6.9); NEUTROPHILS % 83.1 % (38.7-80.0); PLATELET COUNT 205 x10e3/uL (140-360); RED BLOOD COUNT 4.14 x10e6/uL (4.3-5.7); RED CELL DISTRIBUTION WIDTH 13.5 % (11.7-14.4)
[2020-09-13 05:52] LABS: ALANINE AMINOTRANSFERASE 29 IU/L (0-55); ALBUMIN 2.1 g/dL (3.5-5.0); ALBUMIN/GLOBULIN RATIO 0.4 (0.8-2.0); ALKALINE PHOSPHATASE 93 IU/L (40-150); ANION GAP 12.2 mmol/L (8-16); BLOOD UREA NITROGEN 10 mg/dL (7-26); BUN/CREATININE RATIO 21 (6-25); CALCIUM 8.3 mg/dL (8.4-10.2); CARBON DIOXIDE 34 mmol/L (22-29); CHLORIDE 97 mmol/L (98-107); CREATININE, SERUM 0.47 mg/dL (0.72-1.25); EST GLOMERULAR FILTRATION RATE > 60 ML/MIN (60-); GLUCOSE 144 mg/dL (74-118); POTASSIUM 3.2 mmol/L (3.5-5.1); SODIUM 140 mmol/L (136-145)
[2020-09-13] MEDS: FENTANYL 2000MCG/NS 250 250 ML IV SCH ×3 (06:45→20:30)
[2020-09-13 07:30] LABS: ABG HCO3 38 mmol/L (22-26); ABG PCO2 73 mmHg (35-45); ABG PH 7.33 (7.35-7.45); ABG PO2 83 mmHg (80-105)
[2020-09-13 07:31] LABS: ABG TCO2 40
[2020-09-13] MEDS: FAMOTIDINE 20 MG TAB PO SCH ×2 (07:53→16:34)
[2020-09-13] MEDS: ENOXAPARIN SODIUM INJ 100 MG/ML SYR SC SCH ×2 (08:02→21:15)
[2020-09-13] MEDS: ACETAZOLAMIDE 250 MG TAB PO SCH (08:02)
[2020-09-13] MEDS: ASCORBIC ACID 500 MG TAB PO SCH ×2 (08:02→16:34)
[2020-09-13] MEDS: CHOLECALCIFEROL 400 UNIT TAB PO SCH (08:02)
[2020-09-13] MEDS: ZINC SULFATE 220 MG CAP PO SCH (08:02)
[2020-09-13 08:03] LABS: BAND NEUTROPHILS % (MANUAL) 2 %; EOSINOPHILS % (MANUAL) 2 % (0-7); LYMPHOCYTES % (MANUAL) 11 % (19-48); MONOCYTES % (MANUAL) 5 % (3.4-9.0); NEUTROPHILS % (MANUAL) 74 % (40-74)
[2020-09-13 08:04] LABS: MYELOCYTES % (MANUAL) 5 % (0-0); PLATELET ESTIMATE ADEQUATE; PLATELET MORPHOLOGY COMMENT FEW LARGE; RBC MORPHOLOGY COMMENT NORMAL
[2020-09-13] MEDS ORDERED: POTASSIUM CHLORIDE 20MEQ/100ML 200 ML IV ONE (09:00)
[2020-09-13] MEDS ORDERED: ALBUMIN 25% 25GM 100ML 0.25 GM/ML BTL IV SCH (09:30)
[2020-09-13] MEDS: FUROSEMIDE INJ 10 MG/ML 4 ML VIAL IV SCH ×2 (09:36→21:15)
[2020-09-13] MEDS: ALBUMIN 25% 25GM 100ML 100 ML IV SCH ×2 (09:36→16:34)
[2020-09-13] MEDS: ROCURONIUM BROMIDE 1,250 MG in SODIUM CHLORIDE 0.9% 250ML 125 ML IV SCH (14:46)
[2020-09-13 16:00] LABS: ABG HCO3 41 mmol/L (22-26); ABG PCO2 88 mmHg (35-45); ABG PH 7.28 (7.35-7.45); ABG PO2 83 mmHg (80-105); ABG TCO2 44
[2020-09-13] MEDS: PROPOFOL IV EMULSION 50 ML IV SCH ×3 (16:33→21:59)
[2020-09-14] VITALS (23 sets, daily range): BP systolic 118–152; BP diastolic 56–68
[2020-09-14] MEDS: PROPOFOL IV EMULSION 50 ML IV SCH ×9 (00:50→23:39)
[2020-09-14] MEDS: MIDAZOLAM HCL 5MG/ML 10ML VIAL 100 ML IV PRN ×5 (00:51→21:47)
[2020-09-14] MEDS: ALBUMIN 25% 25GM 100ML 100 ML IV SCH (01:32)
[2020-09-14] MEDS: FENTANYL 2000MCG/NS 250 250 ML IV SCH ×4 (03:10→23:57)
[2020-09-14 05:39] LABS: BASOPHILS # (AUTO) 0.1 (0.0-0.1); BASOPHILS % 0.6 % (0.0-1.0); EOSINOPHILS # (AUTO) 0.2 (0.0-0.4); EOSINOPHILS % 1.5 % (0.0-6.0); HEMATOCRIT 34.7 % (38.2-49.6); HEMOGLOBIN 10.7 g/dL (14.0-18.0); LYMPHOCYTES # (AUTO) 1.1 (1.0-3.2); LYMPHOCYTES % 7.3 % (18.0-39.1); MEAN CORPUSCULAR HEMOGLOBIN 28.9 pg (28-32); MEAN CORPUSCULAR HGB CONC 30.8 g/dL (31-35); MEAN CORPUSCULAR VOLUME 93.8 fL (81-99); NEUTROPHILS # (AUTO) 11.3 (2.1-6.9); NEUTROPHILS % 76.1 % (38.7-80.0); PLATELET COUNT 206 x10e3/uL (140-360); RED CELL DISTRIBUTION WIDTH 13.5 % (11.7-14.4)
[2020-09-14 05:59] LABS: ALANINE AMINOTRANSFERASE 26 IU/L (0-55); ALBUMIN 3.1 g/dL (3.5-5.0); ALBUMIN/GLOBULIN RATIO 0.6 (0.8-2.0); ALKALINE PHOSPHATASE 95 IU/L (40-150); ANION GAP 13.8 mmol/L (8-16); BLOOD UREA NITROGEN 12 mg/dL (7-26); BUN/CREATININE RATIO 27 (6-25); CALCIUM 8.7 mg/dL (8.4-10.2); CHLORIDE 94 mmol/L (98-107); CREATININE, SERUM 0.45 mg/dL (0.72-1.25); EST GLOMERULAR FILTRATION RATE > 60 ML/MIN (60-); GLUCOSE 103 mg/dL (74-118); POTASSIUM 3.8 mmol/L (3.5-5.1); SODIUM 145 mmol/L (136-145)
[2020-09-14 06:01] LABS: CARBON DIOXIDE 41 mmol/L (22-29)
[2020-09-14] MEDS: IBUPROFEN 100 MG/5 ML SUSP PO PRN ×2 (06:41→15:19)
[2020-09-14 08:39] LABS: ABG HCO3 43 mmol/L (22-26); ABG PCO2 92 mmHg (35-45); ABG PH 7.28 (7.35-7.45); ABG PO2 42 mmHg (80-105); ABG TCO2 46
[2020-09-14] MEDS: FAMOTIDINE 20 MG TAB PO SCH ×2 (08:48→16:35)
[2020-09-14] MEDS: CHOLECALCIFEROL 400 UNIT TAB PO SCH (08:48)
[2020-09-14] MEDS: ZINC SULFATE 220 MG CAP PO SCH (08:48)
[2020-09-14] MEDS: ENOXAPARIN SODIUM INJ 100 MG/ML SYR SC SCH ×2 (08:48→21:15)
[2020-09-14] MEDS: ASCORBIC ACID 500 MG TAB PO SCH ×2 (08:48→16:35)
[2020-09-14] MEDS: FUROSEMIDE INJ 10 MG/ML 4 ML VIAL IV SCH (08:48)
[2020-09-14] MEDS: ACETAZOLAMIDE 250 MG TAB PO SCH ×2 (09:32→21:15)
[2020-09-14] MEDS: ROCURONIUM BROMIDE 1,250 MG in SODIUM CHLORIDE 0.9% 250ML 125 ML IV SCH (15:16)
[2020-09-14 16:34] LABS: ABG HCO3 47 mmol/L (22-26); ABG PCO2 86 mmHg (35-45); ABG PH 7.35 (7.35-7.45); ABG PO2 62 mmHg (80-105); ABG TCO2 50
[2020-09-15] VITALS (27 sets, daily range): BP systolic 116–169; BP diastolic 51–85
[2020-09-15] MEDS: PROPOFOL IV EMULSION 50 ML IV SCH ×3 (02:30→07:41)
[2020-09-15] MEDS: MIDAZOLAM HCL 5MG/ML 10ML VIAL 100 ML IV PRN ×2 (02:50→07:27)
[2020-09-15 05:29] LABS: BASOPHILS # (AUTO) 0.1 (0.0-0.1); BASOPHILS % 0.7 % (0.0-1.0); EOSINOPHILS # (AUTO) 0.3 (0.0-0.4); EOSINOPHILS % 1.7 % (0.0-6.0); HEMATOCRIT 35.8 % (38.2-49.6); HEMOGLOBIN 10.7 g/dL (14.0-18.0); LYMPHOCYTES # (AUTO) 1.4 (1.0-3.2); LYMPHOCYTES % 8.4 % (18.0-39.1); MEAN CORPUSCULAR HEMOGLOBIN 28.4 pg (28-32); MEAN CORPUSCULAR HGB CONC 29.9 g/dL (31-35); MONOCYTES # (AUTO) 1.3 (0.2-0.8); MONOCYTES % 7.9 % (4.4-11.3); NEUTROPHILS # (AUTO) 12.5 (2.1-6.9); NEUTROPHILS % 73.6 % (38.7-80.0); PLATELET COUNT 215 x10e3/uL (140-360); RED BLOOD COUNT 3.77 x10e6/uL (4.3-5.7); RED CELL DISTRIBUTION WIDTH 13.8 % (11.7-14.4)
[2020-09-15 06:08] LABS: ALANINE AMINOTRANSFERASE 48 IU/L (0-55); ALBUMIN 2.6 g/dL (3.5-5.0); ALBUMIN/GLOBULIN RATIO 0.5 (0.8-2.0); ALKALINE PHOSPHATASE 121 IU/L (40-150); ANION GAP 12.7 mmol/L (8-16); BLOOD UREA NITROGEN 13 mg/dL (7-26); BUN/CREATININE RATIO 27 (6-25); CALCIUM 8.4 mg/dL (8.4-10.2); CARBON DIOXIDE 40 mmol/L (22-29); CHLORIDE 97 mmol/L (98-107); CREATININE, SERUM 0.48 mg/dL (0.72-1.25); EST GLOMERULAR FILTRATION RATE > 60 ML/MIN (60-); GLUCOSE 123 mg/dL (74-118); POTASSIUM 3.7 mmol/L (3.5-5.1); SODIUM 146 mmol/L (136-145)
[2020-09-15] MEDS: FENTANYL 2000MCG/NS 250 250 ML IV SCH ×3 (06:44→20:41)
[2020-09-15 08:03] LABS: ABG HCO3 45 mmol/L (22-26); ABG PCO2 84 mmHg (35-45); ABG PH 7.34 (7.35-7.45); ABG PO2 55 mmHg (80-105); ABG TCO2 47
[2020-09-15] MEDS: CHOLECALCIFEROL 400 UNIT TAB PO SCH (09:00)
[2020-09-15] MEDS: ENOXAPARIN SODIUM INJ 100 MG/ML SYR SC SCH ×2 (09:00→20:42)
[2020-09-15] MEDS ORDERED: ACETAZOLAMIDE 250 MG TAB PO SCH (09:00)
[2020-09-15] MEDS ORDERED: FUROSEMIDE INJ 100 MG in SODIUM CHLORIDE 0.9% 100 ML 90 ML IV SCH (09:00)
[2020-09-15] MEDS: ASCORBIC ACID 500 MG TAB PO SCH ×2 (09:00→17:00)
[2020-09-15] MEDS ORDERED: ALBUMIN 25% 25GM 100ML 0.25 GM/ML BTL IV SCH (09:00)
[2020-09-15] MEDS: FAMOTIDINE 20 MG/2 ML VIAL IV SCH ×2 (09:00→17:00)
[2020-09-15] MEDS: ZINC SULFATE 220 MG CAP PO SCH (09:00)
[2020-09-15] MEDS: ROCURONIUM BROMIDE 1,250 MG in SODIUM CHLORIDE 0.9% 250ML 125 ML IV SCH (09:01)
[2020-09-15] MEDS ORDERED: MIDAZOLAM HCL 5MG/ML 10ML VIAL 100 ML IV ONE (11:34)
[2020-09-15 15:04] LABS: ABG HCO3 43 mmol/L (22-26); ABG PCO2 68 mmHg (35-45); ABG PH 7.41 (7.35-7.45); ABG PO2 54 mmHg (80-105); ABG TCO2 45
[2020-09-15] MEDS: FUROSEMIDE INJ 100 MG in SODIUM CHLORIDE 0.9% 100 ML 90 ML IV SCH (16:30)
[2020-09-15] MEDS ORDERED: DEXTROSE 5% 1,000 ML IV ONE (16:30)
[2020-09-15] MEDS ORDERED: ALBUMIN 25% 25GM 100ML 100 ML ONE (16:58)
[2020-09-15] MEDS ORDERED: ACETAMINOPHEN 650 MG SUPP PR ONE (16:59)
[2020-09-15] MEDS: ACETAZOLAMIDE 250 MG TAB NG SCH (17:00)
[2020-09-15] MEDS ORDERED: ALBUMIN 25% 12.5GM 0.25 GM/ML BTL IV SCH (18:00)
[2020-09-15] MEDS: ALBUMIN 25% 12.5GM 50ML 50 ML IV SCH (18:00)
[2020-09-15] MEDS: IBUPROFEN 100 MG/5 ML SUSP PO PRN (18:25)
[2020-09-15] MEDS ORDERED: ACETAMINOPHEN 650 MG SUPP PR PRN (18:30)
[2020-09-15] MEDS ORDERED: ACETAMINOPHEN 325 MG SUPP PR ONE (18:30)
[2020-09-15] MEDS ORDERED: ALTEPLASE RECOMBINANT 2 MG/2 ML VIAL IV PRN (18:45)
[2020-09-15] MEDS ORDERED: POTASSIUM CHLORIDE 20MEQ/100ML 200 ML IV PRN (21:15)
[2020-09-16] VITALS (25 sets, daily range): BP systolic 117–145; BP diastolic 56–70
[2020-09-16] MEDS: ALBUMIN 25% 12.5GM 50ML 50 ML IV SCH ×4 (00:05→18:43)
[2020-09-16] MEDS: IBUPROFEN 100 MG/5 ML SUSP PO PRN (00:06)
[2020-09-16] MEDS: MIDAZOLAM HCL 5MG/ML 10ML VIAL 100 ML IV PRN ×4 (00:06→19:25)
[2020-09-16] MEDS: ACETAMINOPHEN 325 MG TAB PO PRN (00:07)
[2020-09-16] MEDS: METOPROLOL TARTRATE INJ 1 MG/ML VIAL IV PRN (00:32)
[2020-09-16] MEDS: PROPOFOL IV EMULSION 50 ML IV SCH ×7 (01:39→22:01)
[2020-09-16] MEDS: FENTANYL 2000MCG/NS 250 250 ML IV SCH ×4 (03:49→17:33)
[2020-09-16] MEDS: FUROSEMIDE INJ 100 MG in SODIUM CHLORIDE 0.9% 100 ML 90 ML IV SCH ×3 (03:56→08:31)
[2020-09-16 04:47] LABS: BASOPHILS # (AUTO) 0.1 (0.0-0.1); BASOPHILS % 0.6 % (0.0-1.0); EOSINOPHILS # (AUTO) 0.1 (0.0-0.4); EOSINOPHILS % 0.5 % (0.0-6.0); HEMATOCRIT 32.4 % (38.2-49.6); HEMOGLOBIN 9.8 g/dL (14.0-18.0); LYMPHOCYTES # (AUTO) 1.5 (1.0-3.2); LYMPHOCYTES % 9.5 % (18.0-39.1); MEAN CORPUSCULAR HEMOGLOBIN 29.3 pg (28-32); MEAN CORPUSCULAR HGB CONC 30.2 g/dL (31-35); MEAN CORPUSCULAR VOLUME 96.7 fL (81-99); MONOCYTES % 6.6 % (4.4-11.3); NEUTROPHILS # (AUTO) 11.2 (2.1-6.9); NEUTROPHILS % 73.5 % (38.7-80.0); PLATELET COUNT 243 x10e3/uL (140-360); RED BLOOD COUNT 3.35 x10e6/uL (4.3-5.7)
[2020-09-16 05:10] LABS: ALANINE AMINOTRANSFERASE 54 IU/L (0-55); ALBUMIN 2.9 g/dL (3.5-5.0); ALBUMIN/GLOBULIN RATIO 0.6 (0.8-2.0); ALKALINE PHOSPHATASE 107 IU/L (40-150); ANION GAP 14.2 mmol/L (8-16); BLOOD UREA NITROGEN 18 mg/dL (7-26); BUN/CREATININE RATIO 32 (6-25); CALCIUM 8.7 mg/dL (8.4-10.2); CARBON DIOXIDE 39 mmol/L (22-29); CHLORIDE 98 mmol/L (98-107); CREATININE, SERUM 0.56 mg/dL (0.72-1.25); EST GLOMERULAR FILTRATION RATE > 60 ML/MIN (60-); GLUCOSE 106 mg/dL (74-118); POTASSIUM 4.2 mmol/L (3.5-5.1); SODIUM 147 mmol/L (136-145)
[2020-09-16 06:10] LABS: MAGNESIUM 2.2 MG/DL (1.3-2.1); PHOSPHORUS 2.3 MG/DL (2.3-4.7)
[2020-09-16 07:52] LABS: ABG HCO3 44 mmol/L (22-26); ABG PCO2 70 mmHg (35-45); ABG PO2 58 mmHg (80-105); ABG TCO2 46
[2020-09-16] MEDS: ACETAZOLAMIDE 250 MG TAB NG SCH ×2 (09:20→18:43)
[2020-09-16] MEDS: CHOLECALCIFEROL 400 UNIT TAB PO SCH (09:20)
[2020-09-16] MEDS: FAMOTIDINE 20 MG/2 ML VIAL IV SCH ×2 (09:20→18:43)
[2020-09-16] MEDS: ASCORBIC ACID 500 MG TAB PO SCH ×2 (09:20→18:43)
[2020-09-16] MEDS: ZINC SULFATE 220 MG CAP PO SCH (09:20)
[2020-09-16] MEDS: ENOXAPARIN SODIUM INJ 100 MG/ML SYR SC SCH ×2 (09:21→21:05)
[2020-09-16 09:35] LABS: EOSINOPHILS % (MANUAL) 1 % (0-7); LYMPHOCYTES % (MANUAL) 8 % (19-48); MONOCYTES % (MANUAL) 3 % (3.4-9.0); MYELOCYTES % (MANUAL) 3 % (0-0); NEUTROPHILS % (MANUAL) 85 % (40-74); NUCLEATED RED BLOOD CELLS 1; PLATELET ESTIMATE ADEQUATE; PLATELET MORPHOLOGY COMMENT NORMAL; RBC MORPHOLOGY COMMENT NORMAL
[2020-09-16] MEDS: ROCURONIUM BROMIDE 1,250 MG in SODIUM CHLORIDE 0.9% 250ML 125 ML IV SCH (09:36)
[2020-09-16] MEDS ORDERED: FUROSEMIDE INJ 100 MG in SODIUM CHLORIDE 0.9% 100 ML 90 ML IV SCH (10:30)
[2020-09-16] MEDS ORDERED: DEXTROSE 5% 1,000 ML IV SCH (11:00)
[2020-09-16 15:08] LABS: ABG HCO3 43 mmol/L (22-26); ABG PCO2 74 mmHg (35-45); ABG PH 7.37 (7.35-7.45); ABG PO2 56 mmHg (80-105); ABG TCO2 45
[2020-09-16] MEDS ORDERED: MICAFUNGIN SODIUM 100 MG in MICAFUNGIN SODIUM 100 ML IV SCH (21:30)
[2020-09-16] MEDS ORDERED: MICAFUNGIN SODIUM 100 ML IV ONE (22:12)
[2020-09-16] MEDS ORDERED: SODIUM CHLORIDE 0.9% 100 ML ONE (22:18)
[2020-09-17] VITALS (14 sets, daily range): BP systolic 124–145; BP diastolic 63–87
[2020-09-17] MEDS: ALBUMIN 25% 12.5GM 50ML 50 ML IV SCH ×3 (00:37→12:39)
[2020-09-17] MEDS: FENTANYL 2000MCG/NS 250 250 ML IV SCH ×3 (00:39→21:30)
[2020-09-17] MEDS: MIDAZOLAM HCL 5MG/ML 10ML VIAL 100 ML IV PRN ×3 (01:21→22:45)
[2020-09-17] MEDS: PROPOFOL IV EMULSION 50 ML IV SCH ×4 (02:15→05:51)
[2020-09-17 04:54] LABS: BASOPHILS # (AUTO) 0.1 (0.0-0.1); BASOPHILS % 0.6 % (0.0-1.0); EOSINOPHILS # (AUTO) 0.7 (0.0-0.4); HEMATOCRIT 31.7 % (38.2-49.6); HEMOGLOBIN 9.5 g/dL (14.0-18.0); LYMPHOCYTES # (AUTO) 1.8 (1.0-3.2); LYMPHOCYTES % 10.8 % (18.0-39.1); MEAN CORPUSCULAR HEMOGLOBIN 28.6 pg (28-32); MEAN CORPUSCULAR VOLUME 95.5 fL (81-99); MONOCYTES # (AUTO) 0.9 (0.2-0.8); MONOCYTES % 5.8 % (4.4-11.3); NEUTROPHILS # (AUTO) 11.1 (2.1-6.9); NEUTROPHILS % 68.2 % (38.7-80.0); PLATELET COUNT 232 x10e3/uL (140-360); RED BLOOD COUNT 3.32 x10e6/uL (4.3-5.7); RED CELL DISTRIBUTION WIDTH 14.5 % (11.7-14.4)
[2020-09-17 05:09] LABS: ALANINE AMINOTRANSFERASE 50 IU/L (0-55); ALBUMIN 2.9 g/dL (3.5-5.0); ALBUMIN/GLOBULIN RATIO 0.7 (0.8-2.0); ALKALINE PHOSPHATASE 100 IU/L (40-150); ANION GAP 14.7 mmol/L (8-16); BLOOD UREA NITROGEN 13 mg/dL (7-26); BUN/CREATININE RATIO 27 (6-25); CALCIUM 8.2 mg/dL (8.4-10.2); CARBON DIOXIDE 35 mmol/L (22-29); CHLORIDE 98 mmol/L (98-107); CREATININE, SERUM 0.48 mg/dL (0.72-1.25); EST GLOMERULAR FILTRATION RATE > 60 ML/MIN (60-); GLUCOSE 105 mg/dL (74-118); MAGNESIUM 1.9 MG/DL (1.3-2.1); PHOSPHORUS 4.2 MG/DL (2.3-4.7); POTASSIUM 3.7 mmol/L (3.5-5.1); SODIUM 144 mmol/L (136-145)
[2020-09-17] MEDS: METOPROLOL TARTRATE INJ 1 MG/ML VIAL IV PRN (06:25)
[2020-09-17 06:29] LABS: EOSINOPHILS % (MANUAL) 4 % (0-7); LYMPHOCYTES % (MANUAL) 9 % (19-48); MONOCYTES % (MANUAL) 4 % (3.4-9.0); MYELOCYTES % (MANUAL) 11 % (0-0); NEUTROPHILS % (MANUAL) 72 % (40-74)
[2020-09-17 06:30] LABS: PLATELET ESTIMATE ADEQUATE; PLATELET MORPHOLOGY COMMENT NORMAL; POLYCHROMASIA FEW; RBC MORPHOLOGY COMMENT NORMAL
[2020-09-17 07:00] LABS: ABG PCO2 130 mmHg (35-45); ABG PH 7.12 (7.35-7.45); ABG PO2 80 mmHg (80-105)
[2020-09-17 07:01] LABS: ABG HCO3 42 mmol/L (22-26); ABG TCO2 46
[2020-09-17] MEDS: IBUPROFEN 100 MG/5 ML SUSP PO PRN ×2 (07:51→23:05)
[2020-09-17] MEDS: ACETAMINOPHEN 325 MG TAB PO PRN ×2 (07:51→21:00)
[2020-09-17] MEDS ORDERED: FUROSEMIDE INJ 100 MG in SODIUM CHLORIDE 0.9% 100 ML 90 ML IV SCH ×3 (09:00→10:15)
[2020-09-17] MEDS ORDERED: SODIUM BICARBONATE 8.4% INJ 50 ML SYR IV ONE (09:15)
[2020-09-17] MEDS: FAMOTIDINE 20 MG/2 ML VIAL IV SCH ×2 (10:16→19:14)
[2020-09-17] MEDS: ASCORBIC ACID 500 MG TAB PO SCH ×2 (10:16→19:14)
[2020-09-17] MEDS: ACETAZOLAMIDE 250 MG TAB NG SCH ×2 (10:16→19:14)
[2020-09-17] MEDS: CHOLECALCIFEROL 400 UNIT TAB PO SCH (10:17)
[2020-09-17] MEDS: ZINC SULFATE 220 MG CAP PO SCH (10:17)
[2020-09-17] MEDS: ENOXAPARIN SODIUM INJ 100 MG/ML SYR SC SCH ×2 (10:17→21:30)
[2020-09-17 10:25] LABS: ABG HCO3 39 mmol/L (22-26); ABG PCO2 57 mmHg (35-45); ABG PH 7.45 (7.35-7.45); ABG PO2 56 mmHg (80-105); ABG TCO2 41
[2020-09-17] MEDS ORDERED: PROPOFOL IV EMULSION 10MG/ML 200 ML ONE (11:51)
[2020-09-17] MEDS: PROPOFOL IV EMULSION 10MG/ML 100 ML IV SCH (12:00)
[2020-09-17] MEDS: ROCURONIUM BROMIDE 1,250 MG in SODIUM CHLORIDE 0.9% 250ML 125 ML IV SCH (13:00)
[2020-09-17] MEDS ORDERED: VECURONIUM BROMIDE FOR INJ 20 MG VIAL ONE (15:28)
[2020-09-17] MEDS: FUROSEMIDE INJ 100 MG in SODIUM CHLORIDE 0.9% 100 ML 90 ML IV SCH (16:00)
[2020-09-17] MEDS ORDERED: ALBUMIN 25% 25GM 100ML 0.25 GM/ML BTL IV SCH (16:00)
[2020-09-17 16:11] LABS: ABG PCO2 76 mmHg (35-45); ABG PH 7.33 (7.35-7.45); ABG PO2 51 mmHg (80-105)
[2020-09-17 16:12] LABS: ABG HCO3 41 mmol/L (22-26); ABG TCO2 43
[2020-09-17] MEDS: ALBUMIN 25% 25GM 100ML 100 ML IV SCH (19:14)
[2020-09-17] MEDS: MICAFUNGIN SODIUM 100 ML IV SCH (21:30)
[2020-09-18] VITALS (14 sets, daily range): BP systolic 111–127; BP diastolic 55–69
[2020-09-18] MEDS: ALBUMIN 25% 25GM 100ML 100 ML IV SCH ×2 (01:15→08:57)
[2020-09-18] MEDS: FUROSEMIDE INJ 100 MG in SODIUM CHLORIDE 0.9% 100 ML 90 ML IV SCH ×3 (02:46→21:44)
[2020-09-18] MEDS: ACETAMINOPHEN 325 MG TAB PO PRN ×2 (03:00→21:30)
[2020-09-18] MEDS: MIDAZOLAM HCL 5MG/ML 10ML VIAL 100 ML IV PRN ×2 (03:38→23:46)
[2020-09-18] MEDS: PROPOFOL IV EMULSION 10MG/ML 100 ML IV SCH ×3 (04:40→23:20)
[2020-09-18] MEDS: FENTANYL 2000MCG/NS 250 250 ML IV SCH ×2 (05:00→23:45)
[2020-09-18 05:05] LABS: BASOPHILS # (AUTO) 0.1 (0.0-0.1); EOSINOPHILS # (AUTO) 0.9 (0.0-0.4); EOSINOPHILS % 6.3 % (0.0-6.0); HEMATOCRIT 31.3 % (38.2-49.6); HEMOGLOBIN 9.3 g/dL (14.0-18.0); LYMPHOCYTES # (AUTO) 2.3 (1.0-3.2); LYMPHOCYTES % 16.1 % (18.0-39.1); MEAN CORPUSCULAR HEMOGLOBIN 28.4 pg (28-32); MEAN CORPUSCULAR HGB CONC 29.7 g/dL (31-35); MEAN CORPUSCULAR VOLUME 95.7 fL (81-99); MONOCYTES # (AUTO) 0.8 (0.2-0.8); MONOCYTES % 5.8 % (4.4-11.3); NEUTROPHILS # (AUTO) 8.4 (2.1-6.9); NEUTROPHILS % 57.8 % (38.7-80.0); PLATELET COUNT 279 x10e3/uL (140-360); RED BLOOD COUNT 3.27 x10e6/uL (4.3-5.7); RED CELL DISTRIBUTION WIDTH 14.4 % (11.7-14.4)
[2020-09-18 05:24] LABS: ANION GAP 13.6 mmol/L (8-16); BLOOD UREA NITROGEN 11 mg/dL (7-26); CARBON DIOXIDE 36 mmol/L (22-29); CHLORIDE 98 mmol/L (98-107); CREATININE, SERUM 0.51 mg/dL (0.72-1.25); POTASSIUM 3.6 mmol/L (3.5-5.1); SODIUM 144 mmol/L (136-145)
[2020-09-18 05:25] LABS: ALANINE AMINOTRANSFERASE 46 IU/L (0-55); ALBUMIN 3.1 g/dL (3.5-5.0); ALBUMIN/GLOBULIN RATIO 0.7 (0.8-2.0); ALKALINE PHOSPHATASE 98 IU/L (40-150); BUN/CREATININE RATIO 22 (6-25); CALCIUM 8.6 mg/dL (8.4-10.2); EST GLOMERULAR FILTRATION RATE > 60 ML/MIN (60-); GLUCOSE 88 mg/dL (74-118)
[2020-09-18 07:03] LABS: ABG PCO2 73 mmHg (35-45); ABG PH 7.35 (7.35-7.45)
[2020-09-18 07:04] LABS: ABG HCO3 40 mmol/L (22-26); ABG PO2 55 mmHg (80-105); ABG TCO2 42
[2020-09-18] MEDS: ENOXAPARIN SODIUM INJ 100 MG/ML SYR SC SCH ×2 (08:57→21:24)
[2020-09-18] MEDS: FAMOTIDINE 20 MG/2 ML VIAL IV SCH ×2 (08:57→16:47)
[2020-09-18] MEDS: ZINC SULFATE 220 MG CAP PO SCH (08:57)
[2020-09-18] MEDS: ASCORBIC ACID 500 MG TAB PO SCH ×2 (08:57→16:47)
[2020-09-18] MEDS: CHOLECALCIFEROL 400 UNIT TAB PO SCH (08:57)
[2020-09-18] MEDS: ACETAZOLAMIDE 250 MG TAB NG SCH ×2 (08:57→16:47)
[2020-09-18] MEDS: ROCURONIUM BROMIDE 1,250 MG in SODIUM CHLORIDE 0.9% 250ML 125 ML IV SCH (13:00)
[2020-09-18 15:59] LABS: ABG HCO3 43 mmol/L (22-26); ABG PCO2 79 mmHg (35-45); ABG PH 7.35 (7.35-7.45); ABG PO2 57 mmHg (80-105); ABG TCO2 46
[2020-09-18] MEDS: MICAFUNGIN SODIUM 100 ML IV SCH (21:24)
[2020-09-18] MEDS: IBUPROFEN 100 MG/5 ML SUSP PO PRN (23:19)
[2020-09-19] VITALS (27 sets, daily range): BP systolic 116–133; BP diastolic 59–71
[2020-09-19] MEDS: FLUCONAZOLE 400MG/200ML BAG 200 ML IV SCH (00:07)
[2020-09-19] MEDS: PROPOFOL IV EMULSION 10MG/ML 100 ML IV SCH ×4 (03:46→23:25)
[2020-09-19] MEDS: MIDAZOLAM HCL 5MG/ML 10ML VIAL 100 ML IV PRN ×3 (05:23→20:41)
[2020-09-19 06:34] LABS: BASOPHILS # (AUTO) 0.2 (0.0-0.1); EOSINOPHILS # (AUTO) 1.1 (0.0-0.4); EOSINOPHILS % 7.4 % (0.0-6.0); HEMATOCRIT 32.7 % (38.2-49.6); LYMPHOCYTES # (AUTO) 1.8 (1.0-3.2); LYMPHOCYTES % 11.8 % (18.0-39.1); MEAN CORPUSCULAR HEMOGLOBIN 29.2 pg (28-32); MEAN CORPUSCULAR HGB CONC 30.6 g/dL (31-35); MEAN CORPUSCULAR VOLUME 95.6 fL (81-99); MONOCYTES # (AUTO) 0.8 (0.2-0.8); NEUTROPHILS # (AUTO) 9.4 (2.1-6.9); NEUTROPHILS % 62.2 % (38.7-80.0); PLATELET COUNT 313 x10e3/uL (140-360); RED BLOOD COUNT 3.42 x10e6/uL (4.3-5.7); RED CELL DISTRIBUTION WIDTH 14.4 % (11.7-14.4)
[2020-09-19 07:05] LABS: ALANINE AMINOTRANSFERASE 36 IU/L (0-55); ALBUMIN/GLOBULIN RATIO 0.7 (0.8-2.0); ALKALINE PHOSPHATASE 99 IU/L (40-150); ANION GAP 14.7 mmol/L (8-16); BLOOD UREA NITROGEN 6 mg/dL (7-26); BUN/CREATININE RATIO 12 (6-25); CALCIUM 8.4 mg/dL (8.4-10.2); CHLORIDE 90 mmol/L (98-107); CREATININE, SERUM 0.49 mg/dL (0.72-1.25); EST GLOMERULAR FILTRATION RATE > 60 ML/MIN (60-); GLUCOSE 97 mg/dL (74-118); SODIUM 144 mmol/L (136-145)
[2020-09-19 07:07] LABS: POTASSIUM 2.7 mmol/L (3.5-5.1)
[2020-09-19 07:08] LABS: CARBON DIOXIDE 42 mmol/L (22-29)
[2020-09-19 07:52] LABS: ABG HCO3 48 mmol/L (22-26); ABG PCO2 80 mmHg (35-45); ABG PH 7.39 (7.35-7.45); ABG PO2 53 mmHg (80-105); ABG TCO2 50
[2020-09-19 08:30] LABS: EOSINOPHILS % (MANUAL) 8 % (0-7); LYMPHOCYTES % (MANUAL) 14 % (19-48); METAMYELOCYTES % (MANUAL) 6 % (0-0); MONOCYTES % (MANUAL) 4 % (3.4-9.0); MYELOCYTES % (MANUAL) 6 % (0-0); NEUTROPHILS % (MANUAL) 56 % (40-74); NUCLEATED RED BLOOD CELLS 2
[2020-09-19 08:31] LABS: PLATELET ESTIMATE ADEQUATE; PLATELET MORPHOLOGY COMMENT NORMAL; POLYCHROMASIA FEW
[2020-09-19] MEDS: FENTANYL 2000MCG/NS 250 250 ML IV SCH ×2 (09:32→23:04)
[2020-09-19] MEDS: ROCURONIUM BROMIDE 1,250 MG in SODIUM CHLORIDE 0.9% 250ML 125 ML IV SCH (09:32)
[2020-09-19] MEDS: POTASSIUM CHLORIDE 20MEQ/100ML 100 ML IV SCH ×4 (12:06→21:15)
[2020-09-19] MEDS: ASCORBIC ACID 500 MG TAB PO SCH ×2 (12:06→18:41)
[2020-09-19] MEDS: FAMOTIDINE 20 MG/2 ML VIAL IV SCH ×2 (12:06→18:41)
[2020-09-19] MEDS: ENOXAPARIN SODIUM INJ 100 MG/ML SYR SC SCH ×2 (12:06→21:29)
[2020-09-19] MEDS: CHOLECALCIFEROL 400 UNIT TAB PO SCH (12:06)
[2020-09-19] MEDS: ACETAZOLAMIDE 250 MG TAB NG SCH ×2 (12:06→18:41)
[2020-09-19] MEDS: ZINC SULFATE 220 MG CAP PO SCH (12:06)
[2020-09-19] MEDS ORDERED: PROPOFOL IV EMULSION 10 MG/ML 50 ML VIAL IV ONE (12:30)
[2020-09-19] MEDS ORDERED: PROPOFOL IV EMULSION 10MG/ML 100ML BTL ONE (12:30)
[2020-09-19] MEDS ORDERED: MIDAZOLAM HCL 5MG/ML 10ML VIAL 100 ML BAG IV ONE (12:30)
[2020-09-19] MEDS ORDERED: FENTANYL 2,000 MCG/250 ML BAG ONE (12:30)
[2020-09-19 17:56] LABS: ABG PH 7.28 (7.35-7.45)
[2020-09-19 17:57] LABS: ABG HCO3 53 mmol/L (22-26); ABG PCO2 112 mmHg (35-45); ABG PO2 64 mmHg (80-105); ABG TCO2 50
[2020-09-20] VITALS (29 sets, daily range): BP systolic 116–153; BP diastolic 61–86
[2020-09-20] MEDS: FLUCONAZOLE 400MG/200ML BAG 200 ML IV SCH ×2 (00:15→23:53)
[2020-09-20] MEDS: MIDAZOLAM HCL 5MG/ML 10ML VIAL 100 ML IV PRN ×3 (02:20→22:40)
[2020-09-20] MEDS: PROPOFOL IV EMULSION 10MG/ML 100 ML IV SCH ×4 (02:32→20:51)
[2020-09-20] MEDS: FENTANYL 2000MCG/NS 250 250 ML IV SCH (05:22)
[2020-09-20] MEDS: FUROSEMIDE INJ 100 MG in SODIUM CHLORIDE 0.9% 100 ML 90 ML IV SCH ×3 (06:15→23:53)
[2020-09-20] MEDS: ROCURONIUM BROMIDE 1,250 MG in SODIUM CHLORIDE 0.9% 250ML 125 ML IV SCH (06:25)
[2020-09-20 06:30] LABS: BASOPHILS # (AUTO) 0.2 (0.0-0.1); EOSINOPHILS # (AUTO) 0.7 (0.0-0.4); EOSINOPHILS % 4.7 % (0.0-6.0); HEMATOCRIT 33.8 % (38.2-49.6); HEMOGLOBIN 9.8 g/dL (14.0-18.0); LYMPHOCYTES # (AUTO) 1.6 (1.0-3.2); LYMPHOCYTES % 10.3 % (18.0-39.1); MEAN CORPUSCULAR HEMOGLOBIN 28.1 pg (28-32); MEAN CORPUSCULAR VOLUME 96.8 fL (81-99); MONOCYTES # (AUTO) 0.9 (0.2-0.8); MONOCYTES % 5.9 % (4.4-11.3); NEUTROPHILS # (AUTO) 10.5 (2.1-6.9); NEUTROPHILS % 68.3 % (38.7-80.0); PLATELET COUNT 390 x10e3/uL (140-360); RED BLOOD COUNT 3.49 x10e6/uL (4.3-5.7); RED CELL DISTRIBUTION WIDTH 14.5 % (11.7-14.4)
[2020-09-20 06:59] LABS: ALANINE AMINOTRANSFERASE 31 IU/L (0-55); ALBUMIN 2.8 g/dL (3.5-5.0); ALBUMIN/GLOBULIN RATIO 0.6 (0.8-2.0); ALKALINE PHOSPHATASE 98 IU/L (40-150); BLOOD UREA NITROGEN 5 mg/dL (7-26); BUN/CREATININE RATIO 10 (6-25); CALCIUM 8.7 mg/dL (8.4-10.2); CHLORIDE 84 mmol/L (98-107); CREATININE, SERUM 0.48 mg/dL (0.72-1.25); EST GLOMERULAR FILTRATION RATE > 60 ML/MIN (60-); GLUCOSE 208 mg/dL (74-118); POTASSIUM 3.6 mmol/L (3.5-5.1); SODIUM 144 mmol/L (136-145)
[2020-09-20 07:27] LABS: ANION GAP 16.6 mmol/L (8-16)
[2020-09-20 07:33] LABS: CARBON DIOXIDE 47 mmol/L (22-29)
[2020-09-20 10:32] LABS: BAND NEUTROPHILS % (MANUAL) 2 %; EOSINOPHILS % (MANUAL) 5 % (0-7); HYPOCHROMASIA SLIGHT; LYMPHOCYTES % (MANUAL) 10 % (19-48); MONOCYTES % (MANUAL) 4 % (3.4-9.0); MYELOCYTES % (MANUAL) 6 % (0-0); NEUTROPHILS % (MANUAL) 73 % (40-74)
[2020-09-20 10:33] LABS: PLATELET ESTIMATE SLIGHTLY INCREASED; PLATELET MORPHOLOGY COMMENT NORMAL; RBC MORPHOLOGY COMMENT NORMAL
[2020-09-20] MEDS: ENOXAPARIN SODIUM INJ 100 MG/ML SYR SC SCH ×2 (11:30→20:46)
[2020-09-20] MEDS: CHOLECALCIFEROL 400 UNIT TAB PO SCH (11:30)
[2020-09-20] MEDS: ALBUMIN 25% 25GM 100ML 0.25 GM/ML BTL IV SCH ×3 (11:30→22:19)
[2020-09-20] MEDS: ZINC SULFATE 220 MG CAP PO SCH (11:30)
[2020-09-20] MEDS: ASCORBIC ACID 500 MG TAB PO SCH ×2 (11:30→17:57)
[2020-09-20] MEDS: FAMOTIDINE 20 MG/2 ML VIAL IV SCH ×2 (11:30→17:56)
[2020-09-20 12:05] LABS: ABG HCO3 58 mmol/L (22-26); ABG PCO2 101 mmHg (35-45); ABG PH 7.37 (7.35-7.45); ABG PO2 64 mmHg (80-105); ABG TCO2 50
[2020-09-20 15:38] LABS: BASOPHILS # (AUTO) 0.1 (0.0-0.1); BASOPHILS % 0.6 % (0.0-1.0); EOSINOPHILS # (AUTO) 0.1 (0.0-0.4); EOSINOPHILS % 0.8 % (0.0-6.0); HEMATOCRIT 31.2 % (38.2-49.6); HEMOGLOBIN 9.4 g/dL (14.0-18.0); LYMPHOCYTES # (AUTO) 0.9 (1.0-3.2); LYMPHOCYTES % 5.9 % (18.0-39.1); MEAN CORPUSCULAR HEMOGLOBIN 29.7 pg (28-32); MEAN CORPUSCULAR HGB CONC 30.1 g/dL (31-35); MEAN CORPUSCULAR VOLUME 98.4 fL (81-99); MONOCYTES # (AUTO) 0.8 (0.2-0.8); MONOCYTES % 4.9 % (4.4-11.3); NEUTROPHILS # (AUTO) 12.3 (2.1-6.9); NEUTROPHILS % 78.6 % (38.7-80.0); PLATELET COUNT 379 x10e3/uL (140-360); RED BLOOD COUNT 3.17 x10e6/uL (4.3-5.7); RED CELL DISTRIBUTION WIDTH 14.7 % (11.7-14.4)
[2020-09-20 16:51] LABS: ABG HCO3 62 mmol/L (22-26); ABG PCO2 112 mmHg (35-45); ABG PH 7.35 (7.35-7.45); ABG PO2 65 mmHg (80-105)
[2020-09-20 16:52] LABS: ABG TCO2 50
[2020-09-20] MEDS: ACETAZOLAMIDE 250 MG TAB NG SCH (17:57)
[2020-09-21] VITALS (19 sets, daily range): BP systolic 125–168; BP diastolic 60–81
[2020-09-21] MEDS: ROCURONIUM BROMIDE 1,250 MG in SODIUM CHLORIDE 0.9% 250ML 125 ML IV SCH ×2 (00:04→20:41)
[2020-09-21] MEDS: FENTANYL 2000MCG/NS 250 250 ML IV SCH ×2 (01:15→22:15)
[2020-09-21] MEDS: PROPOFOL IV EMULSION 10MG/ML 100 ML IV SCH ×4 (03:43→20:49)
[2020-09-21] MEDS: MIDAZOLAM HCL 5MG/ML 10ML VIAL 100 ML IV PRN ×2 (03:50→23:31)
[2020-09-21 06:53] LABS: BASOPHILS # (AUTO) 0.1 (0.0-0.1); BASOPHILS % 0.5 % (0.0-1.0); EOSINOPHILS % 0.1 % (0.0-6.0); HEMOGLOBIN 9.2 g/dL (14.0-18.0); LYMPHOCYTES # (AUTO) 1.3 (1.0-3.2); LYMPHOCYTES % 6.9 % (18.0-39.1); MEAN CORPUSCULAR HEMOGLOBIN 28.9 pg (28-32); MEAN CORPUSCULAR HGB CONC 29.7 g/dL (31-35); MEAN CORPUSCULAR VOLUME 97.5 fL (81-99); MONOCYTES # (AUTO) 0.7 (0.2-0.8); MONOCYTES % 3.9 % (4.4-11.3); NEUTROPHILS # (AUTO) 14.9 (2.1-6.9); NEUTROPHILS % 80.5 % (38.7-80.0); PLATELET COUNT 409 x10e3/uL (140-360); RED BLOOD COUNT 3.18 x10e6/uL (4.3-5.7); RED CELL DISTRIBUTION WIDTH 14.6 % (11.7-14.4)
[2020-09-21 07:25] LABS: ALANINE AMINOTRANSFERASE 24 IU/L (0-55); ALBUMIN 3.1 g/dL (3.5-5.0); ALBUMIN/GLOBULIN RATIO 0.7 (0.8-2.0); ALKALINE PHOSPHATASE 102 IU/L (40-150); BLOOD UREA NITROGEN 11 mg/dL (7-26); BUN/CREATININE RATIO 20 (6-25); CALCIUM 8.8 mg/dL (8.4-10.2); CHLORIDE 82 mmol/L (98-107); CREATININE, SERUM 0.54 mg/dL (0.72-1.25); EST GLOMERULAR FILTRATION RATE > 60 ML/MIN (60-); GLUCOSE 111 mg/dL (74-118); POTASSIUM 3.4 mmol/L (3.5-5.1); SODIUM 146 mmol/L (136-145)
[2020-09-21 07:42] LABS: ANION GAP 17.4 mmol/L (8-16)
[2020-09-21 07:46] LABS: CARBON DIOXIDE 50 mmol/L (22-29)
[2020-09-21 08:48] LABS: ABG PCO2 94 mmHg (35-45); ABG PH 7.41 (7.35-7.45); ABG PO2 63 mmHg (80-105)
[2020-09-21 08:49] LABS: ABG HCO3 59 mmol/L (22-26); ABG TCO2 50
[2020-09-21 09:48] LABS: CREATININE,URINE RANDOM 127.72 mg/dL (63-166); TOTAL PROTEIN, URINE 121.1 mg/dL (1-14)
[2020-09-21 10:05] LABS: ANISOCYTOSIS SLIGHT; EOSINOPHILS % (MANUAL) 2 % (0-7); LYMPHOCYTES % (MANUAL) 4 % (19-48); MONOCYTES % (MANUAL) 4 % (3.4-9.0); MYELOCYTES % (MANUAL) 8 % (0-0); NEUTROPHILS % (MANUAL) 82 % (40-74); NUCLEATED RED BLOOD CELLS 1; PLATELET ESTIMATE SLIGHTLY INCREASED; PLATELET MORPHOLOGY COMMENT NORMAL; RBC MORPHOLOGY COMMENT NORMAL
[2020-09-21] MEDS ORDERED: POTASSIUM CHLORIDE 20MEQ/100ML 100 ML IV ONE (11:00)
[2020-09-21] MEDS ORDERED: ACETAMINOPHEN 1000 MG/100 ML IV STA (11:37)
[2020-09-21] MEDS: FAMOTIDINE 20 MG/2 ML VIAL IV SCH ×2 (12:24→16:15)
[2020-09-21] MEDS: ACETAZOLAMIDE 250 MG TAB NG SCH ×2 (12:24→16:15)
[2020-09-21] MEDS: ZINC SULFATE 220 MG CAP PO SCH (12:25)
[2020-09-21] MEDS: ASCORBIC ACID 500 MG TAB PO SCH ×2 (12:25→16:15)
[2020-09-21] MEDS: DEXTROSE 5% 1,000 ML IV SCH (12:25)
[2020-09-21] MEDS: CHOLECALCIFEROL 400 UNIT TAB PO SCH (12:25)
[2020-09-21] MEDS: ENOXAPARIN SODIUM INJ 100 MG/ML SYR SC SCH ×2 (12:25→21:24)
[2020-09-22] VITALS (26 sets, daily range): BP systolic 120–159; BP diastolic 55–78
[2020-09-22] MEDS: FLUCONAZOLE 400MG/200ML BAG 200 ML IV SCH ×2 (00:17→23:24)
[2020-09-22] MEDS: PROPOFOL IV EMULSION 10MG/ML 100 ML IV SCH ×3 (03:15→20:00)
[2020-09-22] MEDS: MIDAZOLAM HCL 5MG/ML 10ML VIAL 100 ML IV PRN ×2 (04:44→20:00)
[2020-09-22] MEDS: DEXTROSE 5% 1,000 ML IV SCH (05:33)
[2020-09-22] MEDS: FENTANYL 2000MCG/NS 250 250 ML IV SCH ×4 (05:33→20:00)
[2020-09-22 06:35] LABS: BASOPHILS # (AUTO) 0.1 (0.0-0.1); BASOPHILS % 0.5 % (0.0-1.0); EOSINOPHILS # (AUTO) 0.2 (0.0-0.4); EOSINOPHILS % 1.2 % (0.0-6.0); LYMPHOCYTES # (AUTO) 2.2 (1.0-3.2); LYMPHOCYTES % 11.7 % (18.0-39.1); MEAN CORPUSCULAR HEMOGLOBIN 28.7 pg (28-32); MEAN CORPUSCULAR VOLUME 95.5 fL (81-99); MONOCYTES # (AUTO) 1.7 (0.2-0.8); NEUTROPHILS # (AUTO) 13.1 (2.1-6.9); NEUTROPHILS % 70.2 % (38.7-80.0); PLATELET COUNT 429 x10e3/uL (140-360); RED BLOOD COUNT 3.14 x10e6/uL (4.3-5.7); RED CELL DISTRIBUTION WIDTH 14.9 % (11.7-14.4)
[2020-09-22 07:04] LABS: ALANINE AMINOTRANSFERASE 24 IU/L (0-55); ALBUMIN 2.8 g/dL (3.5-5.0); ALBUMIN/GLOBULIN RATIO 0.6 (0.8-2.0); ALKALINE PHOSPHATASE 87 IU/L (40-150); ANION GAP 12.8 mmol/L (8-16); BLOOD UREA NITROGEN 11 mg/dL (7-26); BUN/CREATININE RATIO 24 (6-25); CALCIUM 8.5 mg/dL (8.4-10.2); CHLORIDE 87 mmol/L (98-107); CREATININE, SERUM 0.45 mg/dL (0.72-1.25); EST GLOMERULAR FILTRATION RATE > 60 ML/MIN (60-); GLUCOSE 104 mg/dL (74-118); SODIUM 142 mmol/L (136-145)
[2020-09-22 07:07] LABS: POTASSIUM 2.8 mmol/L (3.5-5.1)
[2020-09-22 07:08] LABS: CARBON DIOXIDE 45 mmol/L (22-29)
[2020-09-22 08:13] LABS: ABG HCO3 49 mmol/L (22-26); ABG PCO2 66 mmHg (35-45); ABG PH 7.48 (7.35-7.45); ABG PO2 52 mmHg (80-105); ABG TCO2 50
[2020-09-22] MEDS ORDERED: POTASSIUM CHLORIDE 20MEQ/100ML 200 ML IV ONE (09:00)
[2020-09-22] MEDS ORDERED: POTASSIUM CHLORIDE 10MEQ/100ML 400 ML IV ONE (09:00)
[2020-09-22] MEDS: ENOXAPARIN SODIUM INJ 100 MG/ML SYR SC SCH ×2 (09:27→19:58)
[2020-09-22] MEDS: ACETAZOLAMIDE 250 MG TAB NG SCH ×2 (09:27→17:24)
[2020-09-22] MEDS: FAMOTIDINE 20 MG/2 ML VIAL IV SCH ×2 (09:27→17:24)
[2020-09-22] MEDS: ZINC SULFATE 220 MG CAP PO SCH (09:27)
[2020-09-22] MEDS: ASCORBIC ACID 500 MG TAB PO SCH ×2 (09:27→17:24)
[2020-09-22] MEDS: CHOLECALCIFEROL 400 UNIT TAB PO SCH (09:27)
[2020-09-22 10:06] LABS: ANISOCYTOSIS SLIGHT; BAND NEUTROPHILS % (MANUAL) 4 %; EOSINOPHILS % (MANUAL) 1 % (0-7); LYMPHOCYTES % (MANUAL) 6 % (19-48); MONOCYTES % (MANUAL) 5 % (3.4-9.0); MYELOCYTES % (MANUAL) 3 % (0-0); NEUTROPHILS % (MANUAL) 81 % (40-74); PLATELET ESTIMATE SLIGHTLY INCREASED
[2020-09-22 10:07] LABS: PLATELET MORPHOLOGY COMMENT FEW LARGE; POLYCHROMASIA FEW; RBC MORPHOLOGY COMMENT ABNORMAL
[2020-09-22 10:08] LABS: GIANT PLATELETS FEW
[2020-09-22] MEDS: FUROSEMIDE INJ 10 MG/ML 4 ML VIAL IV SCH (11:41)
[2020-09-22] MEDS: POTASSIUM CHLORIDE 20 MEQ TAB CR PO SCH ×2 (11:41→17:24)
[2020-09-22 16:02] LABS: ABG HCO3 45 mmol/L (22-26); ABG PCO2 70 mmHg (35-45); ABG PH 7.42 (7.35-7.45); ABG PO2 66 mmHg (80-105); ABG TCO2 47
[2020-09-23] VITALS (24 sets, daily range): BP systolic 107–144; BP diastolic 51–72
[2020-09-23] MEDS: PROPOFOL IV EMULSION 10MG/ML 100 ML IV SCH ×3 (02:48→20:04)
[2020-09-23] MEDS: FENTANYL 2000MCG/NS 250 250 ML IV SCH ×2 (02:50→20:03)
[2020-09-23] MEDS: MIDAZOLAM HCL 5MG/ML 10ML VIAL 100 ML IV PRN ×2 (02:50→20:04)
[2020-09-23 06:37] LABS: BASOPHILS # (AUTO) 0.2 (0.0-0.1); BASOPHILS % 1.1 % (0.0-1.0); EOSINOPHILS % 5.7 % (0.0-6.0); HEMATOCRIT 31.4 % (38.2-49.6); HEMOGLOBIN 9.4 g/dL (14.0-18.0); LYMPHOCYTES # (AUTO) 2.2 (1.0-3.2); LYMPHOCYTES % 13.1 % (18.0-39.1); MEAN CORPUSCULAR HEMOGLOBIN 28.5 pg (28-32); MEAN CORPUSCULAR HGB CONC 29.9 g/dL (31-35); MEAN CORPUSCULAR VOLUME 95.2 fL (81-99); MONOCYTES # (AUTO) 1.5 (0.2-0.8); MONOCYTES % 8.8 % (4.4-11.3); NEUTROPHILS # (AUTO) 10.3 (2.1-6.9); NEUTROPHILS % 60.6 % (38.7-80.0); PLATELET COUNT 440 x10e3/uL (140-360); RED CELL DISTRIBUTION WIDTH 15.6 % (11.7-14.4)
[2020-09-23 07:09] LABS: ALANINE AMINOTRANSFERASE 26 IU/L (0-55); ALBUMIN 2.6 g/dL (3.5-5.0); ALBUMIN/GLOBULIN RATIO 0.5 (0.8-2.0); ALKALINE PHOSPHATASE 94 IU/L (40-150); ANION GAP 12.2 mmol/L (8-16); BLOOD UREA NITROGEN 13 mg/dL (7-26); BUN/CREATININE RATIO 30 (6-25); CALCIUM 8.5 mg/dL (8.4-10.2); CARBON DIOXIDE 38 mmol/L (22-29); CHLORIDE 93 mmol/L (98-107); CREATININE, SERUM 0.44 mg/dL (0.72-1.25); EST GLOMERULAR FILTRATION RATE > 60 ML/MIN (60-); GLUCOSE 90 mg/dL (74-118); MAGNESIUM 1.9 MG/DL (1.3-2.1); POTASSIUM 3.2 mmol/L (3.5-5.1); SODIUM 140 mmol/L (136-145)
[2020-09-23 09:00] LABS: ABG HCO3 42 mmol/L (22-26); ABG PCO2 99 mmHg (35-45); ABG PH 7.24 (7.35-7.45); ABG PO2 61 mmHg (80-105); ABG TCO2 45
[2020-09-23] MEDS: FUROSEMIDE INJ 10 MG/ML 4 ML VIAL IV SCH (09:19)
[2020-09-23] MEDS: FAMOTIDINE 20 MG/2 ML VIAL IV SCH ×2 (09:19→17:07)
[2020-09-23] MEDS: CHOLECALCIFEROL 400 UNIT TAB PO SCH (09:20)
[2020-09-23] MEDS: ENOXAPARIN SODIUM INJ 100 MG/ML SYR SC SCH ×2 (09:20→20:03)
[2020-09-23] MEDS: ZINC SULFATE 220 MG CAP PO SCH (09:20)
[2020-09-23] MEDS: ACETAZOLAMIDE 250 MG TAB NG SCH ×2 (09:20→17:07)
[2020-09-23] MEDS: POTASSIUM CHLORIDE 20 MEQ TAB CR PO SCH ×2 (09:20→17:07)
[2020-09-23] MEDS: ASCORBIC ACID 500 MG TAB PO SCH ×2 (09:20→17:07)
[2020-09-23] MEDS: ALBUMIN 25% 25GM 100ML 0.25 GM/ML BTL IV SCH ×3 (09:32→21:20)
[2020-09-23] MEDS: FUROSEMIDE INJ 100 MG in SODIUM CHLORIDE 0.9% 100 ML 90 ML IV SCH (09:32)
[2020-09-23 10:20] LABS: EOSINOPHILS % (MANUAL) 6 % (0-7); LYMPHOCYTES % (MANUAL) 17 % (19-48); MONOCYTES % (MANUAL) 4 % (3.4-9.0); MYELOCYTES % (MANUAL) 7 % (0-0); NEUTROPHILS % (MANUAL) 66 % (40-74)
[2020-09-23 10:21] LABS: PLATELET ESTIMATE SLIGHTLY INCREASED; PLATELET MORPHOLOGY COMMENT FEW LARGE; POLYCHROMASIA MODERATE
[2020-09-23 12:26] LABS: ABG HCO3 41 mmol/L (22-26); ABG PCO2 85 mmHg (35-45); ABG PO2 42 mmHg (80-105); ABG TCO2 44
[2020-09-23 16:41] LABS: ABG HCO3 41 mmol/L (22-26); ABG PCO2 85 mmHg (35-45); ABG PH 7.29 (7.35-7.45); ABG PO2 65 mmHg (80-105); ABG TCO2 43
[2020-09-23] MEDS: ROCURONIUM BROMIDE 1,250 MG in SODIUM CHLORIDE 0.9% 250ML 125 ML IV SCH (20:03)
[2020-09-24] VITALS (24 sets, daily range): BP systolic 120–162; BP diastolic 53–81
[2020-09-24] MEDS: FLUCONAZOLE 400MG/200ML BAG 200 ML IV SCH (00:16)
[2020-09-24 06:15] LABS: BASOPHILS # (AUTO) 0.2 (0.0-0.1); EOSINOPHILS # (AUTO) 0.6 (0.0-0.4); EOSINOPHILS % 3.1 % (0.0-6.0); HEMATOCRIT 32.3 % (38.2-49.6); HEMOGLOBIN 9.6 g/dL (14.0-18.0); LYMPHOCYTES # (AUTO) 2.4 (1.0-3.2); LYMPHOCYTES % 13.2 % (18.0-39.1); MEAN CORPUSCULAR HEMOGLOBIN 29.4 pg (28-32); MEAN CORPUSCULAR HGB CONC 29.7 g/dL (31-35); MEAN CORPUSCULAR VOLUME 99.1 fL (81-99); MONOCYTES # (AUTO) 1.3 (0.2-0.8); MONOCYTES % 7.2 % (4.4-11.3); NEUTROPHILS # (AUTO) 11.5 (2.1-6.9); NEUTROPHILS % 63.4 % (38.7-80.0); PLATELET COUNT 476 x10e3/uL (140-360); RED BLOOD COUNT 3.26 x10e6/uL (4.3-5.7); RED CELL DISTRIBUTION WIDTH 15.8 % (11.7-14.4)
[2020-09-24 06:43] LABS: ALANINE AMINOTRANSFERASE 25 IU/L (0-55); ALBUMIN 3.3 g/dL (3.5-5.0); ALBUMIN/GLOBULIN RATIO 0.7 (0.8-2.0); ALKALINE PHOSPHATASE 100 IU/L (40-150); ANION GAP 14.8 mmol/L (8-16); BLOOD UREA NITROGEN 16 mg/dL (7-26); BUN/CREATININE RATIO 31 (6-25); CALCIUM 8.6 mg/dL (8.4-10.2); CARBON DIOXIDE 37 mmol/L (22-29); CHLORIDE 93 mmol/L (98-107); CREATININE, SERUM 0.51 mg/dL (0.72-1.25); EST GLOMERULAR FILTRATION RATE > 60 ML/MIN (60-); GLUCOSE 130 mg/dL (74-118); POTASSIUM 3.8 mmol/L (3.5-5.1); SODIUM 141 mmol/L (136-145)
[2020-09-24] MEDS: MIDAZOLAM HCL 5MG/ML 10ML VIAL 100 ML IV PRN ×3 (07:51→17:51)
[2020-09-24 07:55] LABS: EOSINOPHILS % (MANUAL) 2 % (0-7); HYPOCHROMASIA SLIGHT; LYMPHOCYTES % (MANUAL) 9 % (19-48); MONOCYTES % (MANUAL) 8 % (3.4-9.0); MYELOCYTES % (MANUAL) 9 % (0-0); NEUTROPHILS % (MANUAL) 69 % (40-74); NUCLEATED RED BLOOD CELLS 2; PLATELET ESTIMATE SLIGHTLY INCREASED; POLYCHROMASIA FEW
[2020-09-24 07:56] LABS: PLATELET MORPHOLOGY COMMENT FEW GIANT; RBC MORPHOLOGY COMMENT NORMAL
[2020-09-24 08:24] LABS: ABG HCO3 43 mmol/L (22-26); ABG PCO2 112 mmHg (35-45); ABG PH 7.19 (7.35-7.45); ABG PO2 58 mmHg (80-105); ABG TCO2 46
[2020-09-24] MEDS ORDERED: VECURONIUM BROMIDE FOR INJ 20 MG VIAL IV STA (08:44)
[2020-09-24] MEDS ORDERED: VECURONIUM BROMIDE FOR INJ 20 MG VIAL IV NR (09:00)
[2020-09-24] MEDS: PROPOFOL IV EMULSION 10MG/ML 100 ML IV SCH (09:22)
[2020-09-24] MEDS: FAMOTIDINE 20 MG/2 ML VIAL IV SCH ×2 (09:34→17:01)
[2020-09-24] MEDS: ACETAZOLAMIDE 250 MG TAB NG SCH ×2 (09:34→17:01)
[2020-09-24] MEDS: ZINC SULFATE 220 MG CAP PO SCH (09:34)
[2020-09-24] MEDS: CHOLECALCIFEROL 400 UNIT TAB PO SCH (09:34)
[2020-09-24] MEDS: POTASSIUM CHLORIDE 20 MEQ TAB CR PO SCH ×2 (09:34→17:01)
[2020-09-24] MEDS: ASCORBIC ACID 500 MG TAB PO SCH ×2 (09:34→17:01)
[2020-09-24] MEDS: FUROSEMIDE INJ 100 MG in SODIUM CHLORIDE 0.9% 100 ML 90 ML IV SCH ×2 (10:07→17:02)
[2020-09-24] MEDS: FENTANYL 2000MCG/NS 250 250 ML IV SCH ×2 (10:42→17:51)
[2020-09-24] MEDS ORDERED: CITRATE OF MAGNESIA 300ML BOTTLE PO NR (11:30)
[2020-09-24 12:41] LABS: ABG HCO3 42 mmol/L (22-26); ABG PCO2 92 mmHg (35-45); ABG PH 7.27 (7.35-7.45); ABG PO2 43 mmHg (80-105); ABG TCO2 46
[2020-09-24] MEDS: ROCURONIUM BROMIDE 1,250 MG in SODIUM CHLORIDE 0.9% 250ML 125 ML IV SCH (13:10)
[2020-09-24 16:26] LABS: ABG HCO3 44 mmol/L (22-26); ABG PCO2 90 mmHg (35-45); ABG PO2 46 mmHg (80-105); ABG TCO2 47
[2020-09-24] MEDS: DOCUSATE SODIUM LIQD 100 MG/10 ML UDC NG SCH (17:10)
[2020-09-24] MEDS: METOCLOPRAMIDE HCL 10 MG/2ML VIAL IV SCH (17:10)
[2020-09-25] VITALS (23 sets, daily range): BP systolic 119–151; BP diastolic 54–82
[2020-09-25] MEDS: FUROSEMIDE INJ 100 MG in SODIUM CHLORIDE 0.9% 100 ML 90 ML IV SCH ×4 (00:16→16:35)
[2020-09-25] MEDS: FLUCONAZOLE 400MG/200ML BAG 200 ML IV SCH (00:16)
[2020-09-25] MEDS: METOCLOPRAMIDE HCL 10 MG/2ML VIAL IV SCH ×4 (00:16→16:22)
[2020-09-25 06:17] LABS: BASOPHILS # (AUTO) 0.2 (0.0-0.1); EOSINOPHILS # (AUTO) 0.3 (0.0-0.4); EOSINOPHILS % 1.8 % (0.0-6.0); HEMATOCRIT 33.3 % (38.2-49.6); HEMOGLOBIN 10.1 g/dL (14.0-18.0); LYMPHOCYTES # (AUTO) 1.9 (1.0-3.2); LYMPHOCYTES % 10.4 % (18.0-39.1); MEAN CORPUSCULAR HEMOGLOBIN 29.3 pg (28-32); MEAN CORPUSCULAR HGB CONC 30.3 g/dL (31-35); MEAN CORPUSCULAR VOLUME 96.5 fL (81-99); MONOCYTES # (AUTO) 1.6 (0.2-0.8); MONOCYTES % 9.1 % (4.4-11.3); NEUTROPHILS % 67.5 % (38.7-80.0); PLATELET COUNT 499 x10e3/uL (140-360); RED BLOOD COUNT 3.45 x10e6/uL (4.3-5.7); RED CELL DISTRIBUTION WIDTH 16.2 % (11.7-14.4)
[2020-09-25 06:40] LABS: ABG HCO3 48 mmol/L (22-26); ABG PCO2 66 mmHg (35-45); ABG PH 7.47 (7.35-7.45); ABG PO2 55 mmHg (80-105)
[2020-09-25 06:41] LABS: ABG TCO2 50
[2020-09-25 06:53] LABS: ALANINE AMINOTRANSFERASE 39 IU/L (0-55); ALBUMIN 3.1 g/dL (3.5-5.0); ALBUMIN/GLOBULIN RATIO 0.6 (0.8-2.0); ALKALINE PHOSPHATASE 117 IU/L (40-150); ANION GAP 14.7 mmol/L (8-16); BLOOD UREA NITROGEN 12 mg/dL (7-26); BUN/CREATININE RATIO 24 (6-25); CALCIUM 8.7 mg/dL (8.4-10.2); CHLORIDE 87 mmol/L (98-107); EST GLOMERULAR FILTRATION RATE > 60 ML/MIN (60-); GLUCOSE 103 mg/dL (74-118); MAGNESIUM 2.1 MG/DL (1.3-2.1); PHOSPHORUS 2.3 MG/DL (2.3-4.7); SODIUM 142 mmol/L (136-145)
[2020-09-25 06:58] LABS: CARBON DIOXIDE 43 mmol/L (22-29); POTASSIUM 2.7 mmol/L (3.5-5.1)
[2020-09-25] MEDS: PROPOFOL IV EMULSION 10MG/ML 100 ML IV SCH ×2 (07:30→13:59)
[2020-09-25] MEDS: BISACODYL 10 MG SUPP PR PRN (09:21)
[2020-09-25] MEDS: DOCUSATE SODIUM LIQD 100 MG/10 ML UDC NG SCH ×2 (09:22→16:22)
[2020-09-25] MEDS: ACETAZOLAMIDE 250 MG TAB NG SCH ×2 (09:22→16:22)
[2020-09-25] MEDS: FAMOTIDINE 20 MG/2 ML VIAL IV SCH ×2 (09:22→16:22)
[2020-09-25] MEDS: POTASSIUM CHLORIDE 20MEQ/100ML 200 ML IV SCH ×2 (09:22→20:54)
[2020-09-25] MEDS: POTASSIUM CHLORIDE 20 MEQ TAB CR PO SCH ×3 (09:22→20:54)
[2020-09-25] MEDS: ASCORBIC ACID 500 MG TAB PO SCH (09:23)
[2020-09-25] MEDS: LACTULOSE SYRUP 20 GM/30 ML UDC PO SCH ×4 (09:23→21:54)
[2020-09-25] MEDS: ZINC SULFATE 220 MG CAP PO SCH (09:23)
[2020-09-25] MEDS: CHOLECALCIFEROL 400 UNIT TAB PO SCH (09:23)
[2020-09-25] MEDS: MIDAZOLAM HCL 5MG/ML 10ML VIAL 100 ML IV PRN ×3 (10:19→20:00)
[2020-09-25] MEDS: FENTANYL 2000MCG/NS 250 250 ML IV SCH ×2 (10:19→19:30)
[2020-09-25 12:06] LABS: BAND NEUTROPHILS % (MANUAL) 2 %; EOSINOPHILS % (MANUAL) 1 % (0-7); LYMPHOCYTES % (MANUAL) 5 % (19-48); MONOCYTES % (MANUAL) 4 % (3.4-9.0); MYELOCYTES % (MANUAL) 2 % (0-0); NEUTROPHILS % (MANUAL) 81 % (40-74); NUCLEATED RED BLOOD CELLS 1; PROMYELOCYTES % (MANUAL) 5 % (0-0)
[2020-09-25 12:07] LABS: ABG PCO2 65 mmHg (35-45); ABG PH 7.46 (7.35-7.45)
[2020-09-25 12:07] LABS: ANISOCYTOSIS SLIGHT; PLATELET ESTIMATE SLIGHTLY INCREASED; PLATELET MORPHOLOGY COMMENT FEW LARGE; POIKILOCYTOSIS SLIGHT; RBC MORPHOLOGY COMMENT ABNORMAL
[2020-09-25 12:08] LABS: ABG HCO3 46 mmol/L (22-26); ABG PO2 59 mmHg (80-105); ABG TCO2 48
[2020-09-25] MEDS ORDERED: FENTANYL 2,000 MCG/250 ML BAG ONE (12:37)
[2020-09-25] MEDS ORDERED: MIDAZOLAM HCL 5MG/ML 10ML VIAL 100 ML BAG IV ONE (12:37)
[2020-09-25] MEDS ORDERED: PROPOFOL IV EMULSION 10 MG/ML 50 ML VIAL IV ONE (12:37)
[2020-09-25] MEDS ORDERED: PROPOFOL IV EMULSION 10MG/ML 100ML BTL ONE (12:37)
[2020-09-25] MEDS: ROCURONIUM BROMIDE 1,250 MG in SODIUM CHLORIDE 0.9% 250ML 125 ML IV SCH (13:51)
[2020-09-25] MEDS: METRONIDAZOLE 500MG/NS 100ML 100 ML IV SCH (17:51)
[2020-09-25] MEDS ORDERED: METRONIDAZOLE 500MG/NS 100ML 100 ML IV ONE (17:54)
[2020-09-25] MEDS ORDERED: CEFOXITIN 1GM/0.9% NS 50ML 50 ML IV ONE (17:55)
[2020-09-25] MEDS ORDERED: PIPERACILLIN/TAZOBAC 3.375 GM in SODIUM CHLORIDE 0.9% 50ML 50 ML IV SCH (18:00)
[2020-09-25] MEDS ORDERED: PIPER-TAZ 3.375 GM / NS 50ML IV SCH (18:00)
[2020-09-25] MEDS: ENOXAPARIN SOD INJ 40 MG/0.4 ML SYR SC SCH (21:00)
[2020-09-25] MEDS: CEFEPIME HCL 1GM 1 GM in SODIUM CHLORIDE 0.9% 50ML 50 ML IV SCH (21:53)
[2020-09-25] MEDS ORDERED: CEFEPIME 1GM/NS 0.9% 50 ML 50 ML IV SCH (22:00)
[2020-09-26] VITALS (24 sets, daily range): BP systolic 99–148; BP diastolic 48–79
[2020-09-26] MEDS: FLUCONAZOLE 400MG/200ML BAG 200 ML IV SCH ×2 (00:36→23:59)
[2020-09-26] MEDS: METOCLOPRAMIDE HCL 10 MG/2ML VIAL IV SCH ×4 (00:37→18:11)
[2020-09-26] MEDS: METRONIDAZOLE 500MG/NS 100ML 100 ML IV SCH ×5 (00:37→23:59)
[2020-09-26] MEDS: FUROSEMIDE INJ 100 MG in SODIUM CHLORIDE 0.9% 100 ML 90 ML IV SCH ×4 (00:37→20:32)
[2020-09-26] MEDS: MIDAZOLAM HCL 5MG/ML 10ML VIAL 100 ML IV PRN ×5 (01:00→19:30)
[2020-09-26] MEDS: LACTULOSE SYRUP 20 GM/30 ML UDC PO SCH ×6 (02:00→22:00)
[2020-09-26] MEDS: FENTANYL 2000MCG/NS 250 250 ML IV SCH ×3 (04:00→20:00)
[2020-09-26] MEDS: ACETAMINOPHEN 325 MG TAB PO PRN (05:00)
[2020-09-26] MEDS: PROPOFOL IV EMULSION 10MG/ML 100 ML IV SCH (05:37)
[2020-09-26] MEDS: CEFEPIME HCL 1GM 1 GM in SODIUM CHLORIDE 0.9% 50ML 50 ML IV SCH ×3 (05:54→22:00)
[2020-09-26 06:34] LABS: BASOPHILS # (AUTO) 0.1 (0.0-0.1); BASOPHILS % 0.7 % (0.0-1.0); EOSINOPHILS # (AUTO) 0.1 (0.0-0.4); EOSINOPHILS % 0.7 % (0.0-6.0); LYMPHOCYTES # (AUTO) 1.4 (1.0-3.2); LYMPHOCYTES % 7.5 % (18.0-39.1); MEAN CORPUSCULAR HEMOGLOBIN 29.2 pg (28-32); MEAN CORPUSCULAR HGB CONC 30.3 g/dL (31-35); MEAN CORPUSCULAR VOLUME 96.2 fL (81-99); MONOCYTES # (AUTO) 1.6 (0.2-0.8); MONOCYTES % 8.4 % (4.4-11.3); NEUTROPHILS # (AUTO) 14.2 (2.1-6.9); PLATELET COUNT 529 x10e3/uL (140-360); RED BLOOD COUNT 3.43 x10e6/uL (4.3-5.7); RED CELL DISTRIBUTION WIDTH 16.5 % (11.7-14.4)
[2020-09-26] MEDS: ROCURONIUM BROMIDE 1,250 MG in SODIUM CHLORIDE 0.9% 250ML 125 ML IV SCH (06:44)
[2020-09-26 06:59] LABS: ALANINE AMINOTRANSFERASE 49 IU/L (0-55); ALBUMIN 2.9 g/dL (3.5-5.0); ALBUMIN/GLOBULIN RATIO 0.6 (0.8-2.0); ALKALINE PHOSPHATASE 104 IU/L (40-150); ANION GAP 14.1 mmol/L (8-16); BLOOD UREA NITROGEN 15 mg/dL (7-26); BUN/CREATININE RATIO 27 (6-25); CALCIUM 8.7 mg/dL (8.4-10.2); CARBON DIOXIDE 35 mmol/L (22-29); CHLORIDE 94 mmol/L (98-107); CREATININE, SERUM 0.55 mg/dL (0.72-1.25); EST GLOMERULAR FILTRATION RATE > 60 ML/MIN (60-); GLUCOSE 105 mg/dL (74-118); POTASSIUM 4.1 mmol/L (3.5-5.1); SODIUM 139 mmol/L (136-145)
[2020-09-26 08:48] LABS: ABG HCO3 40 mmol/L (22-26); ABG PCO2 68 mmHg (35-45); ABG PH 7.38 (7.35-7.45); ABG PO2 61 mmHg (80-105); ABG TCO2 42
[2020-09-26] MEDS: FAMOTIDINE 20 MG/2 ML VIAL IV SCH ×2 (09:06→16:58)
[2020-09-26] MEDS: ACETAZOLAMIDE 250 MG TAB NG SCH ×2 (09:06→16:58)
[2020-09-26] MEDS: DOCUSATE SODIUM LIQD 100 MG/10 ML UDC NG SCH ×2 (09:06→16:58)
[2020-09-26] MEDS: CHOLECALCIFEROL 400 UNIT TAB PO SCH (09:07)
[2020-09-26] MEDS: ENOXAPARIN SOD INJ 40 MG/0.4 ML SYR SC SCH ×2 (09:07→20:35)
[2020-09-26] MEDS: POTASSIUM CHLORIDE 20 MEQ TAB CR PO SCH ×4 (09:07→21:00)
[2020-09-26] MEDS: BISACODYL 10 MG SUPP PR PRN (11:29)
[2020-09-26 11:45] LABS: AMYLASE 26 U/L (25-125); LIPASE 35 U/L (8-78)
[2020-09-26 12:01] LABS: CHOL/HDL RATIO 8.2 (3.9-4.7)
[2020-09-26 12:42] LABS: BAND NEUTROPHILS % (MANUAL) 5 %; EOSINOPHILS % (MANUAL) 2 % (0-7); LYMPHOCYTES % (MANUAL) 10 % (19-48); MONOCYTES % (MANUAL) 6 % (3.4-9.0); MYELOCYTES % (MANUAL) 1 % (0-0); NEUTROPHILS % (MANUAL) 74 % (40-74); PROMYELOCYTES % (MANUAL) 2 % (0-0); RBC MORPHOLOGY COMMENT NORMAL
[2020-09-26 12:43] LABS: PLATELET ESTIMATE MODERATELY INCREASED; PLATELET MORPHOLOGY COMMENT NORMAL
[2020-09-26 15:57] LABS: ABG HCO3 38 mmol/L (22-26); ABG PCO2 97 mmHg (35-45); ABG PO2 62 mmHg (80-105); ABG TCO2 41
[2020-09-27] VITALS (19 sets, daily range): BP systolic 106–156; BP diastolic 64–77
[2020-09-27] MEDS: FUROSEMIDE INJ 100 MG in SODIUM CHLORIDE 0.9% 100 ML 90 ML IV SCH ×3 (00:03→08:01)
[2020-09-27] MEDS: METOCLOPRAMIDE HCL 10 MG/2ML VIAL IV SCH ×4 (00:03→17:52)
[2020-09-27] MEDS: LACTULOSE SYRUP 20 GM/30 ML UDC PO SCH ×6 (02:00→21:26)
[2020-09-27] MEDS: ROCURONIUM BROMIDE 1,250 MG in SODIUM CHLORIDE 0.9% 250ML 125 ML IV SCH (02:00)
[2020-09-27] MEDS: FENTANYL 2000MCG/NS 250 250 ML IV SCH ×3 (03:00→19:29)
[2020-09-27] MEDS: MIDAZOLAM HCL 5MG/ML 10ML VIAL 100 ML IV PRN ×4 (04:00→21:30)
[2020-09-27] MEDS: CEFEPIME HCL 1GM 1 GM in SODIUM CHLORIDE 0.9% 50ML 50 ML IV SCH ×3 (05:41→21:26)
[2020-09-27] MEDS: METRONIDAZOLE 500MG/NS 100ML 100 ML IV SCH ×3 (05:41→17:52)
[2020-09-27] MEDS: ACETAMINOPHEN 325 MG TAB PO PRN (06:31)
[2020-09-27] MEDS ORDERED: KCL 20 MEQ PACKET/ ORAL SOLN ONE ×2 (06:46→20:37)
[2020-09-27 07:05] LABS: BASOPHILS # (AUTO) 0.2 (0.0-0.1); BASOPHILS % 0.9 % (0.0-1.0); EOSINOPHILS # (AUTO) 0.2 (0.0-0.4); EOSINOPHILS % 0.9 % (0.0-6.0); LYMPHOCYTES # (AUTO) 2.8 (1.0-3.2); LYMPHOCYTES % 12.7 % (18.0-39.1); MEAN CORPUSCULAR HEMOGLOBIN 28.6 pg (28-32); MEAN CORPUSCULAR HGB CONC 29.7 g/dL (31-35); MEAN CORPUSCULAR VOLUME 96.4 fL (81-99); MONOCYTES # (AUTO) 2.7 (0.2-0.8); MONOCYTES % 12.1 % (4.4-11.3); NEUTROPHILS # (AUTO) 14.3 (2.1-6.9); NEUTROPHILS % 64.9 % (38.7-80.0); PLATELET COUNT 612 x10e3/uL (140-360); RED BLOOD COUNT 3.84 x10e6/uL (4.3-5.7); RED CELL DISTRIBUTION WIDTH 16.9 % (11.7-14.4)
[2020-09-27 07:57] LABS: ALANINE AMINOTRANSFERASE 39 IU/L (0-55); ALBUMIN 2.7 g/dL (3.5-5.0); ALBUMIN/GLOBULIN RATIO 0.5 (0.8-2.0); ALKALINE PHOSPHATASE 93 IU/L (40-150); ANION GAP 17.7 mmol/L (8-16); BLOOD UREA NITROGEN 13 mg/dL (7-26); BUN/CREATININE RATIO 24 (6-25); CALCIUM 8.6 mg/dL (8.4-10.2); CARBON DIOXIDE 34 mmol/L (22-29); CHLORIDE 96 mmol/L (98-107); CREATININE, SERUM 0.54 mg/dL (0.72-1.25); EST GLOMERULAR FILTRATION RATE > 60 ML/MIN (60-); GLUCOSE 116 mg/dL (74-118); MAGNESIUM 1.8 MG/DL (1.3-2.1); SODIUM 145 mmol/L (136-145)
[2020-09-27 08:00] LABS: POTASSIUM 2.7 mmol/L (3.5-5.1)
[2020-09-27 08:05] LABS: ABG PH 7.39 (7.35-7.45)
[2020-09-27 08:06] LABS: ABG HCO3 40 mmol/L (22-26); ABG PCO2 66 mmHg (35-45); ABG PO2 44 mmHg (80-105); ABG TCO2 42
[2020-09-27 08:08] LABS: ABG HCO3 38 mmol/L (22-26); ABG PCO2 62 mmHg (35-45); ABG PO2 70 mmHg (80-105); ABG TCO2 40
[2020-09-27] MEDS: FAMOTIDINE 20 MG/2 ML VIAL IV SCH ×2 (09:03→17:51)
[2020-09-27] MEDS: DOCUSATE SODIUM LIQD 100 MG/10 ML UDC NG SCH ×2 (09:03→17:51)
[2020-09-27] MEDS: POTASSIUM CHLORIDE 20 MEQ TAB CR PO SCH ×3 (09:04→21:25)
[2020-09-27] MEDS: ENOXAPARIN SOD INJ 40 MG/0.4 ML SYR SC SCH ×2 (09:04→21:25)
[2020-09-27] MEDS: ACETAZOLAMIDE 250 MG TAB NG SCH ×2 (09:04→17:52)
[2020-09-27] MEDS: CHOLECALCIFEROL 400 UNIT TAB PO SCH (09:04)
[2020-09-27 11:37] LABS: BAND NEUTROPHILS % (MANUAL) 3 %; EOSINOPHILS % (MANUAL) 1 % (0-7); LYMPHOCYTES % (MANUAL) 5 % (19-48); MONOCYTES % (MANUAL) 7 % (3.4-9.0); MYELOCYTES % (MANUAL) 3 % (0-0); NEUTROPHILS % (MANUAL) 75 % (40-74); PLATELET ESTIMATE MARKEDLY INCREASED; PLATELET MORPHOLOGY COMMENT FEW LARGE; RBC MORPHOLOGY COMMENT NORMAL
[2020-09-27] MEDS ORDERED: VECURONIUM BROMIDE FOR INJ 20 MG VIAL ONE (12:21)
[2020-09-27] MEDS ORDERED: WATER STERILE 10 ML VIAL ONE (12:21)
[2020-09-27] MEDS: PROPOFOL IV EMULSION 10MG/ML 100 ML IV SCH (16:13)
[2020-09-27 16:43] LABS: ABG PH 7.34 (7.35-7.45)
[2020-09-27 16:44] LABS: ABG HCO3 39 mmol/L (22-26); ABG PCO2 72 mmHg (35-45); ABG PO2 80 mmHg (80-105); ABG TCO2 41
[2020-09-27 17:53] LABS: ANION GAP 14.9 mmol/L (8-16); BLOOD UREA NITROGEN 17 mg/dL (7-26); BUN/CREATININE RATIO 32 (6-25); CALCIUM 8.7 mg/dL (8.4-10.2); CARBON DIOXIDE 35 mmol/L (22-29); CHLORIDE 99 mmol/L (98-107); CREATININE, SERUM 0.53 mg/dL (0.72-1.25); EST GLOMERULAR FILTRATION RATE > 60 ML/MIN (60-); GLUCOSE 102 mg/dL (74-118); POTASSIUM 3.9 mmol/L (3.5-5.1); SODIUM 145 mmol/L (136-145)
[2020-09-28] VITALS (26 sets, daily range): BP systolic 103–137; BP diastolic 62–99
[2020-09-28] MEDS: FLUCONAZOLE 400MG/200ML BAG 200 ML IV SCH ×2 (00:09→23:18)
[2020-09-28] MEDS: METRONIDAZOLE 500MG/NS 100ML 100 ML IV SCH ×4 (00:10→17:19)
[2020-09-28] MEDS: METOCLOPRAMIDE HCL 10 MG/2ML VIAL IV SCH ×4 (00:11→17:19)
[2020-09-28] MEDS: LACTULOSE SYRUP 20 GM/30 ML UDC PO SCH ×2 (02:00→06:00)
[2020-09-28] MEDS: FENTANYL 2000MCG/NS 250 250 ML IV SCH ×4 (02:30→22:34)
[2020-09-28] MEDS: MIDAZOLAM HCL 5MG/ML 10ML VIAL 100 ML IV PRN ×4 (02:30→22:35)
[2020-09-28] MEDS: ROCURONIUM BROMIDE 1,250 MG in SODIUM CHLORIDE 0.9% 250ML 125 ML IV SCH (02:30)
[2020-09-28] MEDS: PROPOFOL IV EMULSION 10MG/ML 100 ML IV SCH ×3 (04:00→22:36)
[2020-09-28] MEDS ORDERED: HEPARIN SOD/SOD CHLORIDE 1,000 ML ONE (05:33)
[2020-09-28] MEDS: FUROSEMIDE INJ 100 MG in SODIUM CHLORIDE 0.9% 100 ML 90 ML IV SCH ×2 (06:21→22:10)
[2020-09-28] MEDS: CEFEPIME HCL 1GM 1 GM in SODIUM CHLORIDE 0.9% 50ML 50 ML IV SCH ×3 (06:22→21:54)
[2020-09-28 07:04] LABS: BASOPHILS # (AUTO) 0.1 (0.0-0.1); BASOPHILS % 0.9 % (0.0-1.0); EOSINOPHILS # (AUTO) 0.4 (0.0-0.4); EOSINOPHILS % 2.8 % (0.0-6.0); HEMATOCRIT 32.8 % (38.2-49.6); HEMOGLOBIN 9.6 g/dL (14.0-18.0); LYMPHOCYTES # (AUTO) 1.7 (1.0-3.2); LYMPHOCYTES % 10.7 % (18.0-39.1); MEAN CORPUSCULAR HEMOGLOBIN 28.1 pg (28-32); MEAN CORPUSCULAR HGB CONC 29.3 g/dL (31-35); MEAN CORPUSCULAR VOLUME 95.9 fL (81-99); MONOCYTES # (AUTO) 1.5 (0.2-0.8); MONOCYTES % 9.7 % (4.4-11.3); NEUTROPHILS # (AUTO) 10.7 (2.1-6.9); NEUTROPHILS % 67.4 % (38.7-80.0); PLATELET COUNT 522 x10e3/uL (140-360); RED BLOOD COUNT 3.42 x10e6/uL (4.3-5.7); RED CELL DISTRIBUTION WIDTH 16.6 % (11.7-14.4)
[2020-09-28 07:26] LABS: ABG HCO3 38 mmol/L (22-26); ABG PCO2 73 mmHg (35-45); ABG PH 7.33 (7.35-7.45); ABG PO2 77 mmHg (80-105); ABG TCO2 41
[2020-09-28 08:05] LABS: ALANINE AMINOTRANSFERASE 27 IU/L (0-55); ALBUMIN 2.3 g/dL (3.5-5.0); ALBUMIN/GLOBULIN RATIO 0.5 (0.8-2.0); ALKALINE PHOSPHATASE 73 IU/L (40-150); ANION GAP 13.6 mmol/L (8-16); BLOOD UREA NITROGEN 14 mg/dL (7-26); BUN/CREATININE RATIO 32 (6-25); CALCIUM 8.4 mg/dL (8.4-10.2); CARBON DIOXIDE 36 mmol/L (22-29); CHLORIDE 99 mmol/L (98-107); CREATININE, SERUM 0.44 mg/dL (0.72-1.25); EST GLOMERULAR FILTRATION RATE > 60 ML/MIN (60-); GLUCOSE 102 mg/dL (74-118); POTASSIUM 3.6 mmol/L (3.5-5.1); SODIUM 145 mmol/L (136-145)
[2020-09-28 08:34] LABS: MAGNESIUM 1.9 MG/DL (1.3-2.1); PHOSPHORUS 4.1 MG/DL (2.3-4.7)
[2020-09-28] MEDS: ACETAZOLAMIDE 250 MG TAB NG SCH ×2 (09:24→17:19)
[2020-09-28] MEDS: FAMOTIDINE 20 MG/2 ML VIAL IV SCH ×2 (09:24→17:19)
[2020-09-28] MEDS: DOCUSATE SODIUM LIQD 100 MG/10 ML UDC NG SCH ×2 (09:24→17:19)
[2020-09-28] MEDS: ENOXAPARIN SOD INJ 40 MG/0.4 ML SYR SC SCH ×2 (09:24→21:54)
[2020-09-28] MEDS: CHOLECALCIFEROL 400 UNIT TAB PO SCH (09:24)
[2020-09-28 11:25] LABS: EOSINOPHILS % (MANUAL) 3 % (0-7); LYMPHOCYTES % (MANUAL) 5 % (19-48); MONOCYTES % (MANUAL) 7 % (3.4-9.0); MYELOCYTES % (MANUAL) 3 % (0-0); NEUTROPHILS % (MANUAL) 81 % (40-74)
[2020-09-28 11:26] LABS: PLATELET ESTIMATE SLIGHTLY INCREASED; POLYCHROMASIA FEW
[2020-09-28 11:27] LABS: HYPOCHROMASIA SLIGHT; PLATELET MORPHOLOGY COMMENT FEW LARGE; RBC MORPHOLOGY COMMENT ABNORMAL
[2020-09-28] MEDS: KCL 20 MEQ PACKET/ ORAL SOLN NG SCH ×3 (13:07→21:54)
[2020-09-28 16:48] LABS: ABG HCO3 38 mmol/L (22-26); ABG PCO2 69 mmHg (35-45); ABG PH 7.35 (7.35-7.45); ABG PO2 45 mmHg (80-105); ABG TCO2 40
[2020-09-29] VITALS (26 sets, daily range): BP systolic 99–135; BP diastolic 60–73
[2020-09-29] MEDS: METOCLOPRAMIDE HCL 10 MG/2ML VIAL IV SCH ×4 (00:15→17:40)
[2020-09-29] MEDS: METRONIDAZOLE 500MG/NS 100ML 100 ML IV SCH ×4 (00:25→17:40)
[2020-09-29] MEDS: PROPOFOL IV EMULSION 10MG/ML 100 ML IV SCH ×4 (03:00→18:58)
[2020-09-29] MEDS: CEFEPIME HCL 1GM 1 GM in SODIUM CHLORIDE 0.9% 50ML 50 ML IV SCH ×3 (06:06→21:30)
[2020-09-29] MEDS: FENTANYL 2000MCG/NS 250 250 ML IV SCH ×3 (06:07→19:03)
[2020-09-29 06:40] LABS: ALANINE AMINOTRANSFERASE 23 IU/L (0-55); ALBUMIN 2.3 g/dL (3.5-5.0); ALBUMIN/GLOBULIN RATIO 0.5 (0.8-2.0); ALKALINE PHOSPHATASE 76 IU/L (40-150); ANION GAP 14.6 mmol/L (8-16); BLOOD UREA NITROGEN 15 mg/dL (7-26); BUN/CREATININE RATIO 32 (6-25); CALCIUM 8.5 mg/dL (8.4-10.2); CARBON DIOXIDE 38 mmol/L (22-29); CHLORIDE 98 mmol/L (98-107); CREATININE, SERUM 0.47 mg/dL (0.72-1.25); EST GLOMERULAR FILTRATION RATE > 60 ML/MIN (60-); GLUCOSE 104 mg/dL (74-118); MAGNESIUM 1.9 MG/DL (1.3-2.1); POTASSIUM 3.6 mmol/L (3.5-5.1); SODIUM 147 mmol/L (136-145)
[2020-09-29 07:09] LABS: CALCIUM IONIZED 1.2 mmol/L (1.09-1.30)
[2020-09-29] MEDS: CHOLECALCIFEROL 400 UNIT TAB PO SCH (08:05)
[2020-09-29] MEDS: DOCUSATE SODIUM LIQD 100 MG/10 ML UDC NG SCH ×2 (08:05→17:40)
[2020-09-29] MEDS: KCL 20 MEQ PACKET/ ORAL SOLN NG SCH ×3 (08:05→20:37)
[2020-09-29] MEDS: ACETAZOLAMIDE 250 MG TAB NG SCH (08:05)
[2020-09-29] MEDS: ENOXAPARIN SOD INJ 40 MG/0.4 ML SYR SC SCH ×2 (08:05→20:37)
[2020-09-29] MEDS: FAMOTIDINE 20 MG/2 ML VIAL IV SCH ×2 (08:05→17:40)
[2020-09-29 09:21] LABS: ABG PCO2 74 mmHg (35-45); ABG PH 7.36 (7.35-7.45); ABG PO2 58 mmHg (80-105); ABG TCO2 44
[2020-09-29 09:24] LABS: ABG PCO2 74 mmHg (35-45); ABG PH 7.36 (7.35-7.45); ABG PO2 58 mmHg (80-105); ABG TCO2 44
[2020-09-29] MEDS: MIDAZOLAM HCL 5MG/ML 10ML VIAL 100 ML IV PRN ×3 (10:04→20:36)
[2020-09-29] MEDS: ROCURONIUM BROMIDE 1,250 MG in SODIUM CHLORIDE 0.9% 250ML 125 ML IV SCH (10:54)
[2020-09-29] MEDS: FUROSEMIDE INJ 100 MG in SODIUM CHLORIDE 0.9% 100 ML 90 ML IV SCH (18:57)
[2020-09-30] VITALS (26 sets, daily range): BP systolic 112–155; BP diastolic 64–85
[2020-09-30] MEDS: METOCLOPRAMIDE HCL 10 MG/2ML VIAL IV SCH ×5 (00:12→23:38)
[2020-09-30] MEDS: METRONIDAZOLE 500MG/NS 100ML 100 ML IV SCH ×5 (00:12→23:38)
[2020-09-30] MEDS: ROCURONIUM BROMIDE 1,250 MG in SODIUM CHLORIDE 0.9% 250ML 125 ML IV SCH ×2 (01:58→17:33)
[2020-09-30] MEDS: PROPOFOL IV EMULSION 10MG/ML 100 ML IV SCH ×5 (02:00→21:14)
[2020-09-30] MEDS: FENTANYL 2000MCG/NS 250 250 ML IV SCH ×3 (02:02→23:30)
[2020-09-30] MEDS: MIDAZOLAM HCL 5MG/ML 10ML VIAL 100 ML IV PRN ×3 (02:03→22:06)
[2020-09-30] MEDS: CEFEPIME HCL 1GM 1 GM in SODIUM CHLORIDE 0.9% 50ML 50 ML IV SCH ×3 (06:08→21:10)
[2020-09-30 06:16] LABS: BASOPHILS # (AUTO) 0.2 (0.0-0.1); BASOPHILS % 1.2 % (0.0-1.0); EOSINOPHILS # (AUTO) 0.6 (0.0-0.4); HEMATOCRIT 33.2 % (38.2-49.6); HEMOGLOBIN 9.6 g/dL (14.0-18.0); LYMPHOCYTES # (AUTO) 1.7 (1.0-3.2); LYMPHOCYTES % 11.5 % (18.0-39.1); MEAN CORPUSCULAR HEMOGLOBIN 28.1 pg (28-32); MEAN CORPUSCULAR HGB CONC 28.9 g/dL (31-35); MEAN CORPUSCULAR VOLUME 97.1 fL (81-99); MONOCYTES # (AUTO) 1.7 (0.2-0.8); MONOCYTES % 11.5 % (4.4-11.3); NEUTROPHILS # (AUTO) 8.9 (2.1-6.9); NEUTROPHILS % 61.6 % (38.7-80.0); PLATELET COUNT 452 x10e3/uL (140-360); RED BLOOD COUNT 3.42 x10e6/uL (4.3-5.7); RED CELL DISTRIBUTION WIDTH 16.1 % (11.7-14.4)
[2020-09-30 06:49] LABS: ALANINE AMINOTRANSFERASE 24 IU/L (0-55); ALBUMIN 2.3 g/dL (3.5-5.0); ALBUMIN/GLOBULIN RATIO 0.5 (0.8-2.0); ALKALINE PHOSPHATASE 82 IU/L (40-150); ANION GAP 15.8 mmol/L (8-16); BLOOD UREA NITROGEN 9 mg/dL (7-26); BUN/CREATININE RATIO 20 (6-25); CALCIUM 8.4 mg/dL (8.4-10.2); CARBON DIOXIDE 35 mmol/L (22-29); CHLORIDE 94 mmol/L (98-107); CREATININE, SERUM 0.46 mg/dL (0.72-1.25); EST GLOMERULAR FILTRATION RATE > 60 ML/MIN (60-); GLUCOSE 119 mg/dL (74-118); POTASSIUM 3.8 mmol/L (3.5-5.1); SODIUM 141 mmol/L (136-145)
[2020-09-30 07:59] LABS: ABG PCO2 86 mmHg (35-45); ABG PH 7.29 (7.35-7.45); ABG PO2 66 mmHg (80-105)
[2020-09-30 08:00] LABS: ABG HCO3 41 mmol/L (22-26); ABG TCO2 44
[2020-09-30] MEDS: KCL 20 MEQ PACKET/ ORAL SOLN NG SCH ×3 (09:02→21:09)
[2020-09-30] MEDS: FAMOTIDINE 20 MG/2 ML VIAL IV SCH ×2 (09:02→17:23)
[2020-09-30] MEDS: DOCUSATE SODIUM LIQD 100 MG/10 ML UDC NG SCH ×2 (09:02→17:24)
[2020-09-30] MEDS: ENOXAPARIN SOD INJ 40 MG/0.4 ML SYR SC SCH ×2 (09:03→21:09)
[2020-09-30] MEDS: CHOLECALCIFEROL 400 UNIT TAB PO SCH (09:03)
[2020-09-30] MEDS: BALSAM PERU/CASTOR OIL 60 GM OINT...G. TP SCH (09:03)
[2020-09-30] MEDS ORDERED: PROPOFOL IV EMULSION 10 MG/ML 50 ML VIAL IV ONE (12:04)
[2020-09-30] MEDS ORDERED: PROPOFOL IV EMULSION 10MG/ML 100ML BTL ONE (12:04)
[2020-09-30] MEDS ORDERED: FENTANYL 2,000 MCG/250 ML BAG ONE (12:04)
[2020-09-30] MEDS ORDERED: MIDAZOLAM HCL 5MG/ML 10ML VIAL 100 ML BAG IV ONE (12:04)
[2020-09-30 15:23] LABS: ABG HCO3 45 mmol/L (22-26); ABG PCO2 99 mmHg (35-45); ABG PH 7.27 (7.35-7.45); ABG PO2 73 mmHg (80-105); ABG TCO2 48
[2020-09-30] MEDS: FUROSEMIDE INJ 100 MG in SODIUM CHLORIDE 0.9% 100 ML 90 ML IV SCH (15:36)
[2020-10-01] VITALS (26 sets, daily range): BP systolic 115–150; BP diastolic 60–85
[2020-10-01] MEDS: MIDAZOLAM HCL 5MG/ML 10ML VIAL 100 ML IV PRN ×3 (02:44→20:30)
[2020-10-01] MEDS: FENTANYL 2000MCG/NS 250 250 ML IV SCH (05:45)
[2020-10-01] MEDS: CEFEPIME HCL 1GM 1 GM in SODIUM CHLORIDE 0.9% 50ML 50 ML IV SCH (06:11)
[2020-10-01] MEDS: METOCLOPRAMIDE HCL 10 MG/2ML VIAL IV SCH ×4 (06:11→23:26)
[2020-10-01] MEDS: METRONIDAZOLE 500MG/NS 100ML 100 ML IV SCH ×2 (06:11→14:27)
[2020-10-01 06:46] LABS: BASOPHILS # (AUTO) 0.2 (0.0-0.1); EOSINOPHILS # (AUTO) 0.2 (0.0-0.4); EOSINOPHILS % 1.5 % (0.0-6.0); HEMATOCRIT 33.7 % (38.2-49.6); HEMOGLOBIN 9.9 g/dL (14.0-18.0); LYMPHOCYTES % 12.6 % (18.0-39.1); MEAN CORPUSCULAR HEMOGLOBIN 29.2 pg (28-32); MEAN CORPUSCULAR HGB CONC 29.4 g/dL (31-35); MEAN CORPUSCULAR VOLUME 99.4 fL (81-99); MONOCYTES # (AUTO) 1.6 (0.2-0.8); MONOCYTES % 10.4 % (4.4-11.3); NEUTROPHILS % 64.6 % (38.7-80.0); PLATELET COUNT 477 x10e3/uL (140-360); RED BLOOD COUNT 3.39 x10e6/uL (4.3-5.7)
[2020-10-01 06:54] LABS: ALANINE AMINOTRANSFERASE 74 IU/L (0-55); ALBUMIN 2.7 g/dL (3.5-5.0); ALBUMIN/GLOBULIN RATIO 0.8 (0.8-2.0); ALKALINE PHOSPHATASE 99 IU/L (40-150); BLOOD UREA NITROGEN 21 mg/dL (7-26); BUN/CREATININE RATIO 51 (6-25); CALCIUM 8.3 mg/dL (8.4-10.2); CHLORIDE 84 mmol/L (98-107); CREATININE, SERUM 0.41 mg/dL (0.72-1.25); EST GLOMERULAR FILTRATION RATE > 60 ML/MIN (60-); GLUCOSE 130 mg/dL (74-118); POTASSIUM 3.3 mmol/L (3.5-5.1); SODIUM 143 mmol/L (136-145)
[2020-10-01 07:47] LABS: ANION GAP 12.3 mmol/L (8-16)
[2020-10-01 07:52] LABS: CARBON DIOXIDE 50 mmol/L (22-29)
[2020-10-01 08:04] LABS: ABG HCO3 54 mmol/L (22-26); ABG PCO2 114 mmHg (35-45); ABG PH 7.28 (7.35-7.45); ABG PO2 75 mmHg (80-105); ABG TCO2 > 50
[2020-10-01] MEDS: BALSAM PERU/CASTOR OIL 60 GM OINT...G. TP SCH (08:12)
[2020-10-01] MEDS: PROPOFOL IV EMULSION 10MG/ML 100 ML IV SCH ×4 (08:15→23:26)
[2020-10-01] MEDS: ROCURONIUM BROMIDE 1,250 MG in SODIUM CHLORIDE 0.9% 250ML 125 ML IV SCH (08:48)
[2020-10-01] MEDS: ENOXAPARIN SOD INJ 40 MG/0.4 ML SYR SC SCH ×2 (09:39→20:39)
[2020-10-01] MEDS: KCL 20 MEQ PACKET/ ORAL SOLN NG SCH ×3 (09:39→20:39)
[2020-10-01] MEDS: FAMOTIDINE 20 MG/2 ML VIAL IV SCH ×2 (09:39→18:17)
[2020-10-01] MEDS: CHOLECALCIFEROL 400 UNIT TAB PO SCH (09:39)
[2020-10-01] MEDS: DOCUSATE SODIUM LIQD 100 MG/10 ML UDC NG SCH ×2 (09:39→18:17)
[2020-10-01] MEDS ORDERED: ALBUMIN 25% 25GM 100ML 0.25 GM/ML BTL IV SCH (12:30)
[2020-10-01] MEDS: ALBUMIN 25% 25GM 100ML 100 ML IV SCH ×2 (14:27→22:47)
[2020-10-01] MEDS: FUROSEMIDE INJ 100 MG in SODIUM CHLORIDE 0.9% 100 ML 90 ML IV SCH (15:13)
[2020-10-01] MEDS: FENTANYL 2000MCG/NS 250 250 ML IV PRN (20:29)
[2020-10-02] VITALS (17 sets, daily range): BP systolic 110–154; BP diastolic 63–82
[2020-10-02] MEDS: FUROSEMIDE INJ 100 MG in SODIUM CHLORIDE 0.9% 100 ML 90 ML IV SCH ×3 (01:00→22:34)
[2020-10-02] MEDS: METOCLOPRAMIDE HCL 10 MG/2ML VIAL IV SCH ×3 (05:08→17:32)
[2020-10-02] MEDS: ALBUMIN 25% 25GM 100ML 100 ML IV SCH (05:08)
[2020-10-02] MEDS: PROPOFOL IV EMULSION 10MG/ML 100 ML IV SCH ×4 (05:09→21:03)
[2020-10-02 06:25] LABS: BASOPHILS # (AUTO) 0.1 (0.0-0.1); BASOPHILS % 0.5 % (0.0-1.0); EOSINOPHILS # (AUTO) 0.1 (0.0-0.4); EOSINOPHILS % 0.4 % (0.0-6.0); HEMATOCRIT 32.1 % (38.2-49.6); HEMOGLOBIN 9.5 g/dL (14.0-18.0); LYMPHOCYTES # (AUTO) 2.1 (1.0-3.2); LYMPHOCYTES % 10.6 % (18.0-39.1); MEAN CORPUSCULAR HEMOGLOBIN 29.1 pg (28-32); MEAN CORPUSCULAR HGB CONC 29.6 g/dL (31-35); MEAN CORPUSCULAR VOLUME 98.5 fL (81-99); MONOCYTES # (AUTO) 2.1 (0.2-0.8); MONOCYTES % 10.3 % (4.4-11.3); PLATELET COUNT 465 x10e3/uL (140-360); RED BLOOD COUNT 3.26 x10e6/uL (4.3-5.7); RED CELL DISTRIBUTION WIDTH 15.9 % (11.7-14.4)
[2020-10-02 06:39] LABS: ALANINE AMINOTRANSFERASE 21 IU/L (0-55); ALBUMIN 2.9 g/dL (3.5-5.0); ALBUMIN/GLOBULIN RATIO 0.6 (0.8-2.0); ALKALINE PHOSPHATASE 85 IU/L (40-150); BLOOD UREA NITROGEN 8 mg/dL (7-26); BUN/CREATININE RATIO 18 (6-25); CALCIUM 8.5 mg/dL (8.4-10.2); CHLORIDE 83 mmol/L (98-107); CREATININE, SERUM 0.44 mg/dL (0.72-1.25); EST GLOMERULAR FILTRATION RATE > 60 ML/MIN (60-); GLUCOSE 123 mg/dL (74-118); SODIUM 145 mmol/L (136-145)
[2020-10-02 06:59] LABS: CARBON DIOXIDE 51 mmol/L (22-29)
[2020-10-02] MEDS ORDERED: POTASSIUM CHLORIDE 20MEQ/100ML 200 ML IV ONE (08:30)
[2020-10-02] MEDS: KCL 20 MEQ PACKET/ ORAL SOLN NG SCH ×3 (09:44→21:02)
[2020-10-02] MEDS: ENOXAPARIN SOD INJ 40 MG/0.4 ML SYR SC SCH ×2 (09:44→21:02)
[2020-10-02] MEDS: DOCUSATE SODIUM LIQD 100 MG/10 ML UDC NG SCH ×2 (09:44→17:32)
[2020-10-02] MEDS: FAMOTIDINE 20 MG/2 ML VIAL IV SCH ×2 (09:44→17:32)
[2020-10-02] MEDS: BALSAM PERU/CASTOR OIL 60 GM OINT...G. TP SCH (09:45)
[2020-10-02] MEDS: IBUPROFEN 100 MG/5 ML SUSP PO PRN (09:45)
[2020-10-02] MEDS: FENTANYL 2000MCG/NS 250 250 ML IV PRN ×3 (10:31→23:00)
[2020-10-02] MEDS: FLUCONAZOLE 400MG/200ML BAG 200 ML IV SCH (11:52)
[2020-10-02] MEDS: MEROPENEM 1GRAM 1 GM in SODIUM CHLORIDE 0.9% 100 ML 100 ML IV SCH ×3 (11:53→21:02)
[2020-10-02 12:52] LABS: ABG HCO3 59 mmol/L (22-26); ABG PCO2 88 mmHg (35-45); ABG PH 7.43 (7.35-7.45); ABG PO2 59 mmHg (80-105); ABG TCO2 > 50
[2020-10-02] MEDS: MIDAZOLAM HCL 5MG/ML 10ML VIAL 100 ML IV PRN ×3 (13:21→20:00)
[2020-10-02] MEDS: ROCURONIUM BROMIDE 1,250 MG in SODIUM CHLORIDE 0.9% 250ML 125 ML IV SCH (17:32)
[2020-10-03] VITALS (15 sets, daily range): BP systolic 106–134; BP diastolic 54–70
[2020-10-03] MEDS: METOCLOPRAMIDE HCL 10 MG/2ML VIAL IV SCH ×5 (00:10→23:27)
[2020-10-03] MEDS: PROPOFOL IV EMULSION 10MG/ML 100 ML IV SCH ×4 (01:00→13:38)
[2020-10-03] MEDS: MIDAZOLAM HCL 5MG/ML 10ML VIAL 100 ML IV PRN ×4 (02:07→23:17)
[2020-10-03] MEDS: MEROPENEM 1GRAM 1 GM in SODIUM CHLORIDE 0.9% 100 ML 100 ML IV SCH ×3 (05:25→22:00)
[2020-10-03 06:41] LABS: BASOPHILS # (AUTO) 0.2 (0.0-0.1); BASOPHILS % 0.9 % (0.0-1.0); EOSINOPHILS # (AUTO) 0.7 (0.0-0.4); EOSINOPHILS % 3.7 % (0.0-6.0); HEMATOCRIT 31.9 % (38.2-49.6); HEMOGLOBIN 9.1 g/dL (14.0-18.0); LYMPHOCYTES # (AUTO) 2.1 (1.0-3.2); LYMPHOCYTES % 11.1 % (18.0-39.1); MEAN CORPUSCULAR HEMOGLOBIN 28.8 pg (28-32); MEAN CORPUSCULAR HGB CONC 28.5 g/dL (31-35); MEAN CORPUSCULAR VOLUME 100.9 fL (81-99); MONOCYTES # (AUTO) 2.2 (0.2-0.8); MONOCYTES % 11.3 % (4.4-11.3); NEUTROPHILS # (AUTO) 12.1 (2.1-6.9); NEUTROPHILS % 63.5 % (38.7-80.0); PLATELET COUNT 425 x10e3/uL (140-360); RED BLOOD COUNT 3.16 x10e6/uL (4.3-5.7); RED CELL DISTRIBUTION WIDTH 16.4 % (11.7-14.4)
[2020-10-03] MEDS: FENTANYL 2000MCG/NS 250 250 ML IV PRN ×3 (06:41→20:00)
[2020-10-03 07:05] LABS: ALANINE AMINOTRANSFERASE 26 IU/L (0-55); ALBUMIN 2.8 g/dL (3.5-5.0); ALBUMIN/GLOBULIN RATIO 0.6 (0.8-2.0); ALKALINE PHOSPHATASE 86 IU/L (40-150); BLOOD UREA NITROGEN 10 mg/dL (7-26); BUN/CREATININE RATIO 23 (6-25); CALCIUM 8.8 mg/dL (8.4-10.2); CHLORIDE 84 mmol/L (98-107); CREATININE, SERUM 0.44 mg/dL (0.72-1.25); EST GLOMERULAR FILTRATION RATE > 60 ML/MIN (60-); GLUCOSE 112 mg/dL (74-118); POTASSIUM 3.5 mmol/L (3.5-5.1); SODIUM 147 mmol/L (136-145)
[2020-10-03 07:15] LABS: ANION GAP 16.5 mmol/L (8-16)
[2020-10-03 07:21] LABS: CARBON DIOXIDE 50 mmol/L (22-29)
[2020-10-03] MEDS: BALSAM PERU/CASTOR OIL 60 GM OINT...G. TP SCH (07:33)
[2020-10-03] MEDS: IBUPROFEN 100 MG/5 ML SUSP PO PRN (08:15)
[2020-10-03] MEDS: FAMOTIDINE 20 MG/2 ML VIAL IV SCH ×2 (08:50→16:05)
[2020-10-03] MEDS: FUROSEMIDE INJ 100 MG in SODIUM CHLORIDE 0.9% 100 ML 90 ML IV SCH ×3 (08:50→23:28)
[2020-10-03] MEDS: ENOXAPARIN SOD INJ 40 MG/0.4 ML SYR SC SCH ×2 (08:50→20:26)
[2020-10-03] MEDS: DOCUSATE SODIUM LIQD 100 MG/10 ML UDC NG SCH ×2 (08:50→16:05)
[2020-10-03] MEDS: FLUCONAZOLE 400MG/200ML BAG 200 ML IV SCH (08:50)
[2020-10-03] MEDS: KCL 20 MEQ PACKET/ ORAL SOLN NG SCH ×3 (08:50→20:26)
[2020-10-03 09:48] LABS: ABG HCO3 53 mmol/L (22-26); ABG PCO2 95 mmHg (35-45); ABG PH 7.36 (7.35-7.45); ABG PO2 57 mmHg (80-105); ABG TCO2 > 50
[2020-10-03] MEDS ORDERED: WATER STERILE 10 ML VIAL ONE (12:51)
[2020-10-03] MEDS ORDERED: VECURONIUM BROMIDE FOR INJ 20 MG VIAL ONE (12:51)
[2020-10-03] MEDS: ROCURONIUM BROMIDE 1,250 MG in SODIUM CHLORIDE 0.9% 250ML 125 ML IV SCH (13:37)
[2020-10-04] VITALS (22 sets, daily range): BP systolic 100–140; BP diastolic 46–69
[2020-10-04] MEDS: IBUPROFEN 100 MG/5 ML SUSP PO PRN (00:20)
[2020-10-04] MEDS: ACETAMINOPHEN 325 MG/10 ML UDC NG PRN ×2 (00:20→07:46)
[2020-10-04] MEDS: FENTANYL 2000MCG/NS 250 250 ML IV PRN ×3 (02:00→23:30)
[2020-10-04] MEDS: FUROSEMIDE INJ 100 MG in SODIUM CHLORIDE 0.9% 100 ML 90 ML IV SCH ×2 (04:00→17:18)
[2020-10-04] MEDS: MIDAZOLAM HCL 5MG/ML 10ML VIAL 100 ML IV PRN ×3 (04:09→19:45)
[2020-10-04] MEDS: METOCLOPRAMIDE HCL 10 MG/2ML VIAL IV SCH ×4 (05:11→23:47)
[2020-10-04] MEDS: MEROPENEM 1GRAM 1 GM in SODIUM CHLORIDE 0.9% 100 ML 100 ML IV SCH ×3 (05:11→21:13)
[2020-10-04 06:28] LABS: BASOPHILS # (AUTO) 0.2 (0.0-0.1); EOSINOPHILS # (AUTO) 0.6 (0.0-0.4); EOSINOPHILS % 2.7 % (0.0-6.0); HEMATOCRIT 31.4 % (38.2-49.6); LYMPHOCYTES # (AUTO) 4.1 (1.0-3.2); LYMPHOCYTES % 18.1 % (18.0-39.1); MEAN CORPUSCULAR HEMOGLOBIN 28.7 pg (28-32); MEAN CORPUSCULAR HGB CONC 28.7 g/dL (31-35); MONOCYTES # (AUTO) 2.5 (0.2-0.8); MONOCYTES % 11.1 % (4.4-11.3); NEUTROPHILS # (AUTO) 12.7 (2.1-6.9); NEUTROPHILS % 55.9 % (38.7-80.0); PLATELET COUNT 420 x10e3/uL (140-360); RED BLOOD COUNT 3.14 x10e6/uL (4.3-5.7); RED CELL DISTRIBUTION WIDTH 17.2 % (11.7-14.4)
[2020-10-04 06:55] LABS: ALANINE AMINOTRANSFERASE 31 IU/L (0-55); ALBUMIN 2.8 g/dL (3.5-5.0); ALBUMIN/GLOBULIN RATIO 0.6 (0.8-2.0); ALKALINE PHOSPHATASE 98 IU/L (40-150); BLOOD UREA NITROGEN 10 mg/dL (7-26); BUN/CREATININE RATIO 21 (6-25); CALCIUM 8.7 mg/dL (8.4-10.2); CHLORIDE 81 mmol/L (98-107); CREATININE, SERUM 0.48 mg/dL (0.72-1.25); EST GLOMERULAR FILTRATION RATE > 60 ML/MIN (60-); GLUCOSE 126 mg/dL (74-118); POTASSIUM 3.3 mmol/L (3.5-5.1); SODIUM 147 mmol/L (136-145)
[2020-10-04 07:31] LABS: ANION GAP 16.3 mmol/L (8-16); CARBON DIOXIDE 53 mmol/L (22-29)
[2020-10-04] MEDS: LACTULOSE SYRUP 20 GM/30 ML UDC PO PRN (07:45)
[2020-10-04] MEDS: BALSAM PERU/CASTOR OIL 60 GM OINT...G. TP SCH (07:45)
[2020-10-04] MEDS: FLUCONAZOLE 400MG/200ML BAG 200 ML IV SCH (08:42)
[2020-10-04] MEDS: DOCUSATE SODIUM LIQD 100 MG/10 ML UDC NG SCH ×2 (08:42→17:18)
[2020-10-04] MEDS: FAMOTIDINE 20 MG/2 ML VIAL IV SCH ×2 (08:42→17:18)
[2020-10-04] MEDS: KCL 20 MEQ PACKET/ ORAL SOLN NG SCH ×3 (08:42→21:13)
[2020-10-04] MEDS: ENOXAPARIN SOD INJ 40 MG/0.4 ML SYR SC SCH ×2 (08:42→21:13)
[2020-10-04] MEDS: ACETAZOLAMIDE 500 MG CAP PO SCH ×2 (10:07→17:18)
[2020-10-04 12:22] LABS: ABG PCO2 88 mmHg (35-45); ABG PH 7.46 (7.35-7.45); ABG PO2 44 mmHg (80-105)
[2020-10-04 12:23] LABS: ABG HCO3 63 mmol/L (22-26); ABG TCO2 > 50
[2020-10-04] MEDS ORDERED: MIDAZOLAM HCL 5MG/ML 10ML VIAL 100 ML BAG IV ONE (13:01)
[2020-10-04] MEDS ORDERED: FENTANYL 2,000 MCG/250 ML BAG ONE (13:01)
[2020-10-04] MEDS ORDERED: PROPOFOL IV EMULSION 10 MG/ML 50 ML VIAL IV ONE (13:01)
[2020-10-04] MEDS ORDERED: PROPOFOL IV EMULSION 10MG/ML 100ML BTL ONE (13:01)
[2020-10-04] MEDS: ROCURONIUM BROMIDE 1,250 MG in SODIUM CHLORIDE 0.9% 250ML 125 ML IV SCH ×2 (14:38→23:30)
[2020-10-04 16:36] LABS: ABG PCO2 113 mmHg (35-45); ABG PH 7.34 (7.35-7.45); ABG PO2 58 mmHg (80-105)
[2020-10-04 16:37] LABS: ABG HCO3 61 mmol/L (22-26); ABG TCO2 > 50
[2020-10-05] VITALS (25 sets, daily range): BP systolic 114–159; BP diastolic 59–88
[2020-10-05] MEDS: FUROSEMIDE INJ 100 MG in SODIUM CHLORIDE 0.9% 100 ML 90 ML IV SCH ×2 (01:00→15:12)
[2020-10-05] MEDS: MIDAZOLAM HCL 5MG/ML 10ML VIAL 100 ML IV PRN ×4 (01:54→23:30)
[2020-10-05] MEDS: PROPOFOL IV EMULSION 10MG/ML 100 ML IV SCH ×3 (02:23→17:38)
[2020-10-05] MEDS: MEROPENEM 1GRAM 1 GM in SODIUM CHLORIDE 0.9% 100 ML 100 ML IV SCH ×3 (05:50→22:00)
[2020-10-05 06:23] LABS: BASOPHILS # (AUTO) 0.2 (0.0-0.1); EOSINOPHILS # (AUTO) 0.4 (0.0-0.4); EOSINOPHILS % 2.2 % (0.0-6.0); HEMATOCRIT 31.7 % (38.2-49.6); HEMOGLOBIN 9.1 g/dL (14.0-18.0); LYMPHOCYTES # (AUTO) 2.3 (1.0-3.2); LYMPHOCYTES % 12.3 % (18.0-39.1); MEAN CORPUSCULAR HEMOGLOBIN 29.3 pg (28-32); MEAN CORPUSCULAR HGB CONC 28.7 g/dL (31-35); MEAN CORPUSCULAR VOLUME 101.9 fL (81-99); MONOCYTES # (AUTO) 1.6 (0.2-0.8); MONOCYTES % 8.3 % (4.4-11.3); NEUTROPHILS # (AUTO) 12.4 (2.1-6.9); NEUTROPHILS % 65.8 % (38.7-80.0); PLATELET COUNT 376 x10e3/uL (140-360); RED BLOOD COUNT 3.11 x10e6/uL (4.3-5.7); RED CELL DISTRIBUTION WIDTH 17.5 % (11.7-14.4)
[2020-10-05] MEDS: METOCLOPRAMIDE HCL 10 MG/2ML VIAL IV SCH ×3 (06:23→17:46)
[2020-10-05] MEDS: FENTANYL 2000MCG/NS 250 250 ML IV PRN ×2 (06:56→13:57)
[2020-10-05 07:03] LABS: PHOSPHORUS 4.1 MG/DL (2.3-4.7)
[2020-10-05 08:06] LABS: ALANINE AMINOTRANSFERASE 28 IU/L (0-55); ALBUMIN 2.7 g/dL (3.5-5.0); ALBUMIN/GLOBULIN RATIO 0.5 (0.8-2.0); ALKALINE PHOSPHATASE 102 IU/L (40-150); BLOOD UREA NITROGEN 12 mg/dL (7-26); BUN/CREATININE RATIO 26 (6-25); CALCIUM 8.7 mg/dL (8.4-10.2); CHLORIDE 80 mmol/L (98-107); CREATININE, SERUM 0.46 mg/dL (0.72-1.25); EST GLOMERULAR FILTRATION RATE > 60 ML/MIN (60-); GLUCOSE 114 mg/dL (74-118); POTASSIUM 3.8 mmol/L (3.5-5.1); SODIUM 144 mmol/L (136-145)
[2020-10-05 08:22] LABS: ANION GAP 18.8 mmol/L (8-16)
[2020-10-05 08:25] LABS: CARBON DIOXIDE 49 mmol/L (22-29)
[2020-10-05] MEDS: FAMOTIDINE 20 MG/2 ML VIAL IV SCH ×2 (09:03→17:46)
[2020-10-05] MEDS: ACETAZOLAMIDE 500 MG CAP PO SCH ×2 (09:03→17:46)
[2020-10-05] MEDS: FLUCONAZOLE 400MG/200ML BAG 200 ML IV SCH (09:03)
[2020-10-05] MEDS: KCL 20 MEQ PACKET/ ORAL SOLN NG SCH ×3 (09:03→21:00)
[2020-10-05] MEDS: DOCUSATE SODIUM LIQD 100 MG/10 ML UDC NG SCH ×2 (09:03→17:46)
[2020-10-05] MEDS: BALSAM PERU/CASTOR OIL 60 GM OINT...G. TP SCH (09:04)
[2020-10-05] MEDS: ENOXAPARIN SOD INJ 40 MG/0.4 ML SYR SC SCH ×2 (09:04→21:00)
[2020-10-05 09:24] LABS: BAND NEUTROPHILS % (MANUAL) 4 %; EOSINOPHILS % (MANUAL) 3 % (0-7); HYPOCHROMASIA SLIGHT; LYMPHOCYTES % (MANUAL) 16 % (19-48); MONOCYTES % (MANUAL) 3 % (3.4-9.0); MYELOCYTES % (MANUAL) 9 % (0-0); NEUTROPHILS % (MANUAL) 65 % (40-74); NUCLEATED RED BLOOD CELLS 2; PLATELET MORPHOLOGY COMMENT NORMAL; POLYCHROMASIA FEW; RBC MORPHOLOGY COMMENT NORMAL
[2020-10-05 09:25] LABS: PLATELET ESTIMATE SLIGHTLY INCREASED
[2020-10-05 12:08] LABS: ABG HCO3 59 mmol/L (22-26); ABG PCO2 108 mmHg (35-45); ABG PH 7.35 (7.35-7.45); ABG PO2 59 mmHg (80-105); ABG TCO2 50
[2020-10-06] VITALS (25 sets, daily range): BP systolic 103–125; BP diastolic 57–68
[2020-10-06] MEDS: FUROSEMIDE INJ 100 MG in SODIUM CHLORIDE 0.9% 100 ML 90 ML IV SCH ×2 (01:00→14:26)
[2020-10-06] MEDS: FENTANYL 2000MCG/NS 250 250 ML IV PRN ×2 (03:00→11:19)
[2020-10-06 06:02] LABS: BASOPHILS # (AUTO) 0.2 (0.0-0.1); BASOPHILS % 0.8 % (0.0-1.0); EOSINOPHILS # (AUTO) 0.5 (0.0-0.4); EOSINOPHILS % 2.6 % (0.0-6.0); HEMATOCRIT 32.1 % (38.2-49.6); HEMOGLOBIN 9.1 g/dL (14.0-18.0); LYMPHOCYTES # (AUTO) 2.1 (1.0-3.2); LYMPHOCYTES % 10.5 % (18.0-39.1); MEAN CORPUSCULAR HEMOGLOBIN 28.3 pg (28-32); MEAN CORPUSCULAR HGB CONC 28.3 g/dL (31-35); MEAN CORPUSCULAR VOLUME 99.7 fL (81-99); MONOCYTES # (AUTO) 1.5 (0.2-0.8); MONOCYTES % 7.7 % (4.4-11.3); NEUTROPHILS # (AUTO) 14.3 (2.1-6.9); NEUTROPHILS % 71.7 % (38.7-80.0); PLATELET COUNT 363 x10e3/uL (140-360); RED BLOOD COUNT 3.22 x10e6/uL (4.3-5.7); RED CELL DISTRIBUTION WIDTH 18.2 % (11.7-14.4)
[2020-10-06] MEDS: MEROPENEM 1GRAM 1 GM in SODIUM CHLORIDE 0.9% 100 ML 100 ML IV SCH ×3 (06:06→21:45)
[2020-10-06] MEDS: METOCLOPRAMIDE HCL 10 MG/2ML VIAL IV SCH ×5 (06:06→23:58)
[2020-10-06 06:27] LABS: ALANINE AMINOTRANSFERASE 23 IU/L (0-55); ALBUMIN 2.4 g/dL (3.5-5.0); ALBUMIN/GLOBULIN RATIO 0.5 (0.8-2.0); ALKALINE PHOSPHATASE 105 IU/L (40-150); BLOOD UREA NITROGEN 16 mg/dL (7-26); BUN/CREATININE RATIO 36 (6-25); CALCIUM 8.9 mg/dL (8.4-10.2); CHLORIDE 85 mmol/L (98-107); CREATININE, SERUM 0.44 mg/dL (0.72-1.25); EST GLOMERULAR FILTRATION RATE > 60 ML/MIN (60-); GLUCOSE 107 mg/dL (74-118); POTASSIUM 3.3 mmol/L (3.5-5.1); SODIUM 146 mmol/L (136-145)
[2020-10-06 06:49] LABS: ANION GAP 15.3 mmol/L (8-16)
[2020-10-06 06:53] LABS: CARBON DIOXIDE 49 mmol/L (22-29)
[2020-10-06 07:13] LABS: EOSINOPHILS % (MANUAL) 5 % (0-7); LYMPHOCYTES % (MANUAL) 6 % (19-48); METAMYELOCYTES % (MANUAL) 1 % (0-0); MONOCYTES % (MANUAL) 7 % (3.4-9.0); NEUTROPHILS % (MANUAL) 77 % (40-74); PLATELET ESTIMATE ADEQUATE; PLATELET MORPHOLOGY COMMENT NORMAL; RBC MORPHOLOGY COMMENT NORMAL; SMUDGE CELLS FEW
[2020-10-06] MEDS: ACETAZOLAMIDE 500 MG CAP PO SCH ×2 (08:39→17:02)
[2020-10-06] MEDS: DOCUSATE SODIUM LIQD 100 MG/10 ML UDC NG SCH ×2 (08:39→17:02)
[2020-10-06] MEDS: FAMOTIDINE 20 MG/2 ML VIAL IV SCH ×2 (08:39→17:02)
[2020-10-06] MEDS: KCL 20 MEQ PACKET/ ORAL SOLN NG SCH ×3 (08:39→21:44)
[2020-10-06] MEDS: ENOXAPARIN SOD INJ 40 MG/0.4 ML SYR SC SCH ×2 (08:39→21:45)
[2020-10-06] MEDS: FLUCONAZOLE 400MG/200ML BAG 200 ML IV SCH (08:39)
[2020-10-06] MEDS: PROPOFOL IV EMULSION 10MG/ML 100 ML IV SCH ×4 (08:40→22:59)
[2020-10-06] MEDS: BALSAM PERU/CASTOR OIL 60 GM OINT...G. TP SCH (08:40)
[2020-10-06 09:12] LABS: ABG HCO3 57 mmol/L (22-26); ABG PCO2 99 mmHg (35-45); ABG PH 7.37 (7.35-7.45); ABG PO2 69 mmHg (80-105); ABG TCO2 50
[2020-10-06] MEDS: MIDAZOLAM HCL 5MG/ML 10ML VIAL 100 ML IV PRN ×3 (10:11→20:15)
[2020-10-06] MEDS ORDERED: MIDAZOLAM HCL 5MG/ML 10ML VIAL 100 ML BAG IV ONE (12:25)
[2020-10-06] MEDS ORDERED: PROPOFOL IV EMULSION 10 MG/ML 50 ML VIAL IV ONE (12:25)
[2020-10-06] MEDS ORDERED: PROPOFOL IV EMULSION 10MG/ML 100ML BTL ONE (12:25)
[2020-10-06] MEDS ORDERED: FENTANYL 2,000 MCG/250 ML BAG ONE (12:25)
[2020-10-06] MEDS: ROCURONIUM BROMIDE 1,250 MG in SODIUM CHLORIDE 0.9% 250ML 125 ML IV SCH (13:34)
[2020-10-07] VITALS (25 sets, daily range): BP systolic 87–149; BP diastolic 51–72
[2020-10-07] MEDS: IBUPROFEN 100 MG/5 ML SUSP PO PRN (00:28)
[2020-10-07] MEDS: FUROSEMIDE INJ 100 MG in SODIUM CHLORIDE 0.9% 100 ML 90 ML IV SCH ×4 (01:00→17:15)
[2020-10-07] MEDS: FENTANYL 2000MCG/NS 250 250 ML IV PRN ×3 (01:34→21:27)
[2020-10-07] MEDS: MIDAZOLAM HCL 5MG/ML 10ML VIAL 100 ML IV PRN ×4 (01:35→22:02)
[2020-10-07 05:23] LABS: BASOPHILS # (AUTO) 0.1 (0.0-0.1); BASOPHILS % 0.7 % (0.0-1.0); EOSINOPHILS # (AUTO) 0.6 (0.0-0.4); EOSINOPHILS % 3.5 % (0.0-6.0); HEMOGLOBIN 8.5 g/dL (14.0-18.0); LYMPHOCYTES # (AUTO) 2.4 (1.0-3.2); LYMPHOCYTES % 13.5 % (18.0-39.1); MEAN CORPUSCULAR HEMOGLOBIN 28.2 pg (28-32); MEAN CORPUSCULAR HGB CONC 28.3 g/dL (31-35); MEAN CORPUSCULAR VOLUME 99.7 fL (81-99); MONOCYTES # (AUTO) 1.4 (0.2-0.8); MONOCYTES % 7.9 % (4.4-11.3); PLATELET COUNT 339 x10e3/uL (140-360); RED BLOOD COUNT 3.01 x10e6/uL (4.3-5.7); RED CELL DISTRIBUTION WIDTH 18.4 % (11.7-14.4)
[2020-10-07] MEDS: PROPOFOL IV EMULSION 10MG/ML 100 ML IV SCH ×4 (05:23→19:22)
[2020-10-07 06:11] LABS: ALANINE AMINOTRANSFERASE 23 IU/L (0-55); ALBUMIN 2.3 g/dL (3.5-5.0); ALBUMIN/GLOBULIN RATIO 0.5 (0.8-2.0); ALKALINE PHOSPHATASE 106 IU/L (40-150); ANION GAP 13.4 mmol/L (8-16); BLOOD UREA NITROGEN 14 mg/dL (7-26); BUN/CREATININE RATIO 32 (6-25); CALCIUM 8.7 mg/dL (8.4-10.2); CHLORIDE 86 mmol/L (98-107); CREATININE, SERUM 0.44 mg/dL (0.72-1.25); EST GLOMERULAR FILTRATION RATE > 60 ML/MIN (60-); GLUCOSE 96 mg/dL (74-118); POTASSIUM 4.4 mmol/L (3.5-5.1); SODIUM 145 mmol/L (136-145)
[2020-10-07 06:25] LABS: CARBON DIOXIDE 50 mmol/L (22-29)
[2020-10-07] MEDS: METOCLOPRAMIDE HCL 10 MG/2ML VIAL IV SCH ×3 (06:30→17:54)
[2020-10-07] MEDS: MEROPENEM 1GRAM 1 GM in SODIUM CHLORIDE 0.9% 100 ML 100 ML IV SCH ×3 (06:30→21:11)
[2020-10-07 08:29] LABS: ABG HCO3 54 mmol/L (22-26); ABG PCO2 89 mmHg (35-45); ABG PH 7.39 (7.35-7.45); ABG PO2 52 mmHg (80-105); ABG TCO2 50
[2020-10-07] MEDS: KCL 20 MEQ PACKET/ ORAL SOLN NG SCH ×2 (08:41→17:12)
[2020-10-07] MEDS: DOCUSATE SODIUM LIQD 100 MG/10 ML UDC NG SCH ×2 (08:41→17:12)
[2020-10-07] MEDS: FLUCONAZOLE 400MG/200ML BAG 200 ML IV SCH (08:41)
[2020-10-07] MEDS: FAMOTIDINE 20 MG/2 ML VIAL IV SCH ×2 (08:41→17:12)
[2020-10-07] MEDS: ENOXAPARIN SOD INJ 40 MG/0.4 ML SYR SC SCH ×2 (08:41→21:11)
[2020-10-07] MEDS: ACETAZOLAMIDE 500 MG CAP PO SCH ×2 (08:41→17:12)
[2020-10-07] MEDS: BALSAM PERU/CASTOR OIL 60 GM OINT...G. TP SCH (08:41)
[2020-10-07] MEDS: ALBUMIN 25% 25GM 100ML 0.25 GM/ML BTL IV SCH ×2 (10:08→17:54)
[2020-10-07 16:34] LABS: ABG PCO2 86 mmHg (35-45); ABG PH 7.43 (7.35-7.45)
[2020-10-07 16:35] LABS: ABG HCO3 58 mmol/L (22-26); ABG PO2 52 mmHg (80-105); ABG TCO2 50
[2020-10-07] MEDS ORDERED: ROCURONIUM BROMIDE 1,250 MG in SODIUM CHLORIDE 0.9% 250ML 125 ML IV SCH (17:45)
[2020-10-08] VITALS (26 sets, daily range): BP systolic 90–150; BP diastolic 28–84
[2020-10-08] MEDS: FUROSEMIDE INJ 100 MG in SODIUM CHLORIDE 0.9% 100 ML 90 ML IV SCH ×5 (00:04→21:30)
[2020-10-08] MEDS: METOCLOPRAMIDE HCL 10 MG/2ML VIAL IV SCH ×4 (00:04→17:44)
[2020-10-08] MEDS: MIDAZOLAM HCL 5MG/ML 10ML VIAL 100 ML IV PRN ×3 (01:30→13:19)
[2020-10-08] MEDS: ALBUMIN 25% 25GM 100ML 0.25 GM/ML BTL IV SCH (02:30)
[2020-10-08] MEDS: PROPOFOL IV EMULSION 10MG/ML 100 ML IV SCH (02:39)
[2020-10-08] MEDS: FENTANYL 2000MCG/NS 250 250 ML IV PRN ×2 (04:19→11:05)
[2020-10-08 05:50] LABS: BASOPHILS # (AUTO) 0.1 (0.0-0.1); BASOPHILS % 0.5 % (0.0-1.0); EOSINOPHILS # (AUTO) 0.5 (0.0-0.4); EOSINOPHILS % 2.5 % (0.0-6.0); HEMATOCRIT 28.1 % (38.2-49.6); HEMOGLOBIN 8.1 g/dL (14.0-18.0); LYMPHOCYTES # (AUTO) 1.7 (1.0-3.2); LYMPHOCYTES % 9.4 % (18.0-39.1); MEAN CORPUSCULAR HEMOGLOBIN 28.8 pg (28-32); MEAN CORPUSCULAR HGB CONC 28.8 g/dL (31-35); MONOCYTES # (AUTO) 1.3 (0.2-0.8); NEUTROPHILS % 75.5 % (38.7-80.0); PLATELET COUNT 324 x10e3/uL (140-360); RED BLOOD COUNT 2.81 x10e6/uL (4.3-5.7); RED CELL DISTRIBUTION WIDTH 18.4 % (11.7-14.4)
[2020-10-08 06:09] LABS: ALANINE AMINOTRANSFERASE 19 IU/L (0-55); ALBUMIN 3.3 g/dL (3.5-5.0); ALBUMIN/GLOBULIN RATIO 0.7 (0.8-2.0); ALKALINE PHOSPHATASE 116 IU/L (40-150); BLOOD UREA NITROGEN 13 mg/dL (7-26); BUN/CREATININE RATIO 30 (6-25); CHLORIDE 84 mmol/L (98-107); CREATININE, SERUM 0.44 mg/dL (0.72-1.25); EST GLOMERULAR FILTRATION RATE > 60 ML/MIN (60-); GLUCOSE 117 mg/dL (74-118); POTASSIUM 3.5 mmol/L (3.5-5.1); SODIUM 143 mmol/L (136-145)
[2020-10-08] MEDS: MEROPENEM 1GRAM 1 GM in SODIUM CHLORIDE 0.9% 100 ML 100 ML IV SCH ×3 (06:10→22:00)
[2020-10-08 06:39] LABS: ANION GAP 15.5 mmol/L (8-16)
[2020-10-08 06:43] LABS: CARBON DIOXIDE 47 mmol/L (22-29)
[2020-10-08 08:24] LABS: ABG HCO3 55 mmol/L (22-26); ABG PCO2 92 mmHg (35-45); ABG PH 7.39 (7.35-7.45); ABG PO2 60 mmHg (80-105); ABG TCO2 > 50
[2020-10-08] MEDS ORDERED: VASOPRESSIN 60 UNIT in DEXTROSE 5% 50ML 57 ML IV PRN (08:45)
[2020-10-08] MEDS: ACETAZOLAMIDE 500 MG CAP PO SCH ×2 (09:08→17:43)
[2020-10-08] MEDS: BALSAM PERU/CASTOR OIL 60 GM OINT...G. TP SCH (09:08)
[2020-10-08] MEDS: FAMOTIDINE 20 MG/2 ML VIAL IV SCH ×2 (09:08→17:43)
[2020-10-08] MEDS: DOCUSATE SODIUM LIQD 100 MG/10 ML UDC NG SCH ×2 (09:08→17:43)
[2020-10-08] MEDS: ENOXAPARIN SOD INJ 40 MG/0.4 ML SYR SC SCH ×2 (09:08→20:55)
[2020-10-08] MEDS: FLUCONAZOLE 400MG/200ML BAG 200 ML IV SCH (09:08)
[2020-10-08] MEDS: KCL 20 MEQ PACKET/ ORAL SOLN NG SCH ×2 (09:08→17:43)
[2020-10-08 09:14] LABS: EOSINOPHILS % (MANUAL) 2 % (0-7); LYMPHOCYTES % (MANUAL) 11 % (19-48); MONOCYTES % (MANUAL) 6 % (3.4-9.0); NEUTROPHILS % (MANUAL) 81 % (40-74)
[2020-10-08] MEDS: CISATRACURIUM BESYLATE 100 MG in SODIUM CHLORIDE 0.9% 100 ML 50 ML IV PRN ×2 (11:01→15:24)
[2020-10-08] MEDS ORDERED: ALBUMIN 25% 25GM 100ML 0.25 GM/ML BTL IV ONE ×2 (12:33→12:45)
[2020-10-08] MEDS: IBUPROFEN 100 MG/5 ML SUSP PO PRN (13:18)
[2020-10-08] MEDS ORDERED: VECURONIUM BROMIDE FOR INJ 20 MG VIAL IV STA ×2 (16:43→21:19)
[2020-10-08] MEDS: ROCURONIUM BROMIDE 1,250 MG in SODIUM CHLORIDE 0.9% 250ML 125 ML IV SCH (17:43)
[2020-10-08] MEDS: VANCOMYCIN 1GM/NS 250 ML 250 ML IV SCH (17:44)
[2020-10-08] MEDS ORDERED: ALBUMIN 25% 25GM 100ML 0.25 GM/ML BTL IV STA (17:49)
[2020-10-08] MEDS ORDERED: ALBUMIN 25% 25GM 100ML 100 ML IV ONE (18:15)
[2020-10-08 23:09] LABS: BASOPHILS # (AUTO) 0.1 (0.0-0.1); BASOPHILS % 0.5 % (0.0-1.0); EOSINOPHILS # (AUTO) 0.1 (0.0-0.4); EOSINOPHILS % 0.3 % (0.0-6.0); HEMATOCRIT 26.6 % (38.2-49.6); HEMOGLOBIN 7.1 g/dL (14.0-18.0); LYMPHOCYTES # (AUTO) 6.8 (1.0-3.2); LYMPHOCYTES % 26.2 % (18.0-39.1); MEAN CORPUSCULAR HEMOGLOBIN 28.4 pg (28-32); MEAN CORPUSCULAR HGB CONC 26.7 g/dL (31-35); MEAN CORPUSCULAR VOLUME 106.4 fL (81-99); MONOCYTES # (AUTO) 1.5 (0.2-0.8); MONOCYTES % 5.7 % (4.4-11.3); NEUTROPHILS # (AUTO) 15.8 (2.1-6.9); NEUTROPHILS % 60.4 % (38.7-80.0); PLATELET COUNT 326 x10e3/uL (140-360); RED CELL DISTRIBUTION WIDTH 18.2 % (11.7-14.4)
[2020-10-08 23:16] LABS: INR 1.01; PROTHROMBIN TIME 13.9 seconds (11.9-14.5)
[2020-10-08 23:17] LABS: PARTIAL THROMBOPLASTIN TIME 33.7 seconds (23.8-35.5)
[2020-10-08 23:25] LABS: ALANINE AMINOTRANSFERASE 22 IU/L (0-55); ALBUMIN 3.6 g/dL (3.5-5.0); ALBUMIN/GLOBULIN RATIO 0.9 (0.8-2.0); ALKALINE PHOSPHATASE 140 IU/L (40-150); ANION GAP 23.6 mmol/L (8-16); BLOOD UREA NITROGEN 19 mg/dL (7-26); BUN/CREATININE RATIO 28 (6-25); CHLORIDE 86 mmol/L (98-107); CREATININE, SERUM 0.67 mg/dL (0.72-1.25); EST GLOMERULAR FILTRATION RATE > 60 ML/MIN (60-); GLUCOSE 356 mg/dL (74-118); POTASSIUM 3.6 mmol/L (3.5-5.1); SODIUM 148 mmol/L (136-145)
[2020-10-08 23:27] LABS: CARBON DIOXIDE 42 mmol/L (22-29)
[2020-10-08] MEDS ORDERED: SODIUM CHLORIDE 0.9% 250ML 250 ML IV ONE (23:30)
[2020-10-09] VITALS (25 sets, daily range): BP systolic 65–169; BP diastolic 39–95
[2020-10-09] MEDS ORDERED: NOREPINEPHRINE INJ 4MG/4ML 8 MG in DEXTROSE 5% 250ML 250 ML IV SCH ×2
[2020-10-09] MEDS ORDERED: VECURONIUM BROMIDE FOR INJ 20 MG VIAL ONE ×2 (00:47→13:41)
[2020-10-09] MEDS ORDERED: ATROPINE SULFATE 0.1 MG/ML 10ML SYR ONE ×2 (00:52→13:41)
[2020-10-09] MEDS ORDERED: NOREPINEPHRINE 8 MG/D5W 250 ML 250 ML IV SCH (04:00)
[2020-10-09 04:21] LABS: ABG HCO3 51 mmol/L (22-26); ABG PCO2 99 mmHg (35-45); ABG PH 7.32 (7.35-7.45); ABG PO2 41 mmHg (80-105); ABG TCO2 50
[2020-10-09] MEDS ORDERED: HEPARIN SOD/SOD CHLORIDE 1,000 ML ONE (04:42)
[2020-10-09] MEDS: VANCOMYCIN 1GM/NS 250 ML 250 ML IV SCH ×2 (05:30→17:35)
[2020-10-09] MEDS: MEROPENEM 1GRAM 1 GM in SODIUM CHLORIDE 0.9% 100 ML 100 ML IV SCH ×3 (06:00→21:24)
[2020-10-09] MEDS: METOCLOPRAMIDE HCL 10 MG/2ML VIAL IV SCH ×5 (06:00→23:33)
[2020-10-09 06:22] LABS: BASOPHILS # (AUTO) 0.1 (0.0-0.1); BASOPHILS % 0.4 % (0.0-1.0); EOSINOPHILS % 0.1 % (0.0-6.0); HEMATOCRIT 29.4 % (38.2-49.6); HEMOGLOBIN 8.5 g/dL (14.0-18.0); LYMPHOCYTES # (AUTO) 1.8 (1.0-3.2); LYMPHOCYTES % 5.4 % (18.0-39.1); MEAN CORPUSCULAR HEMOGLOBIN 28.2 pg (28-32); MEAN CORPUSCULAR HGB CONC 28.9 g/dL (31-35); MEAN CORPUSCULAR VOLUME 97.7 fL (81-99); MONOCYTES # (AUTO) 2.1 (0.2-0.8); MONOCYTES % 6.3 % (4.4-11.3); NEUTROPHILS # (AUTO) 25.1 (2.1-6.9); NEUTROPHILS % 76.1 % (38.7-80.0); PLATELET COUNT 309 x10e3/uL (140-360); RED BLOOD COUNT 3.01 x10e6/uL (4.3-5.7); RED CELL DISTRIBUTION WIDTH 19.2 % (11.7-14.4)
[2020-10-09 06:48] LABS: ALANINE AMINOTRANSFERASE 523 IU/L (0-55); ALBUMIN 3.7 g/dL (3.5-5.0); ALBUMIN/GLOBULIN RATIO 0.9 (0.8-2.0); ALKALINE PHOSPHATASE 188 IU/L (40-150); ANION GAP 16.3 mmol/L (8-16); BLOOD UREA NITROGEN 26 mg/dL (7-26); BUN/CREATININE RATIO 39 (6-25); CALCIUM 8.7 mg/dL (8.4-10.2); CHLORIDE 88 mmol/L (98-107); CREATININE, SERUM 0.67 mg/dL (0.72-1.25); EST GLOMERULAR FILTRATION RATE > 60 ML/MIN (60-); GLUCOSE 143 mg/dL (74-118); POTASSIUM 3.3 mmol/L (3.5-5.1); SODIUM 147 mmol/L (136-145)
[2020-10-09 06:50] LABS: CARBON DIOXIDE 46 mmol/L (22-29)
[2020-10-09 08:14] LABS: ABG PH 7.36 (7.35-7.45)
[2020-10-09 08:15] LABS: ABG HCO3 51 mmol/L (22-26); ABG PCO2 90 mmHg (35-45); ABG PO2 58 mmHg (80-105); ABG TCO2 50
[2020-10-09] MEDS: FENTANYL 2000MCG/NS 250 250 ML IV PRN ×3 (09:23→22:21)
[2020-10-09] MEDS: DOCUSATE SODIUM LIQD 100 MG/10 ML UDC NG SCH ×2 (09:24→17:35)
[2020-10-09] MEDS: FLUCONAZOLE 400MG/200ML BAG 200 ML IV SCH (09:24)
[2020-10-09] MEDS: ENOXAPARIN SOD INJ 40 MG/0.4 ML SYR SC SCH ×2 (09:24→21:00)
[2020-10-09] MEDS: FAMOTIDINE 20 MG/2 ML VIAL IV SCH ×2 (09:24→17:35)
[2020-10-09] MEDS: ACETAZOLAMIDE 500 MG CAP PO SCH ×2 (09:24→17:35)
[2020-10-09] MEDS: BALSAM PERU/CASTOR OIL 60 GM OINT...G. TP SCH (09:24)
[2020-10-09] MEDS: KCL 20 MEQ PACKET/ ORAL SOLN NG SCH ×2 (09:24→17:35)
[2020-10-09] MEDS: FUROSEMIDE INJ 100 MG in SODIUM CHLORIDE 0.9% 100 ML 90 ML IV SCH ×3 (11:06→18:11)
[2020-10-09] MEDS: MIDAZOLAM HCL 5MG/ML 10ML VIAL 100 ML IV PRN ×3 (12:30→21:24)
[2020-10-09] MEDS: ROCURONIUM BROMIDE 1,250 MG in SODIUM CHLORIDE 0.9% 250ML 125 ML IV SCH (12:32)
[2020-10-09] MEDS ORDERED: DEXTROSE 5% 250 ML BAG IV ONE (13:41)
[2020-10-09] MEDS ORDERED: WATER STERILE 10 ML VIAL ONE (13:41)
[2020-10-09] MEDS ORDERED: EPINEPHRINE HCL 1:1000 1ML 1 MG/ML AMP ONE (13:41)
[2020-10-09] MEDS ORDERED: SODIUM BICARBONATE 8.4% INJ 50 ML SYR ONE (13:41)
[2020-10-09] MEDS ORDERED: EPINEPHRINE HCL SYRINGE ONE (13:41)
[2020-10-09] MEDS ORDERED: NOREPINEPHRINE INJ 4 MG/4 ML ONE (13:41)
[2020-10-09] MEDS ORDERED: SODIUM CHLORIDE 0.9% 1000 ML BAG ONE (13:41)
[2020-10-09] MEDS ORDERED: SODIUM CHLORIDE 0.9% 1000ML 2,000 ML IV PRN (17:00)
[2020-10-09] MEDS ORDERED: HEPARIN SOD (PORCINE) 1000 UNIT/ML SDV IV PRN (17:00)
[2020-10-09 20:39] LABS: CREATINE KINASE MB 7.4 ng/mL (0-5.0)
[2020-10-09 22:01] LABS: ALANINE AMINOTRANSFERASE 468 IU/L (0-55); ALBUMIN 3.7 g/dL (3.5-5.0); ALBUMIN/GLOBULIN RATIO 0.9 (0.8-2.0); ALKALINE PHOSPHATASE 189 IU/L (40-150); ANION GAP 17.4 mmol/L (8-16); BLOOD UREA NITROGEN 37 mg/dL (7-26); BUN/CREATININE RATIO 42 (6-25); CHLORIDE 91 mmol/L (98-107); CREATININE, SERUM 0.89 mg/dL (0.72-1.25); EST GLOMERULAR FILTRATION RATE > 60 ML/MIN (60-); GLUCOSE 101 mg/dL (74-118); POTASSIUM 3.4 mmol/L (3.5-5.1); SODIUM 148 mmol/L (136-145)
[2020-10-09 22:04] LABS: CARBON DIOXIDE 43 mmol/L (22-29)
[2020-10-09] MEDS: ASPIRIN 81 MG CHEW TAB NG SCH (22:11)
[2020-10-10] VITALS (26 sets, daily range): BP systolic 105–141; BP diastolic 58–78
[2020-10-10] MEDS: ROCURONIUM BROMIDE 1,250 MG in SODIUM CHLORIDE 0.9% 250ML 125 ML IV SCH ×2 (00:33→18:17)
[2020-10-10] MEDS: FUROSEMIDE INJ 100 MG in SODIUM CHLORIDE 0.9% 100 ML 90 ML IV SCH ×5 (00:34→23:47)
[2020-10-10] MEDS: MIDAZOLAM HCL 5MG/ML 10ML VIAL 100 ML IV PRN ×5 (02:24→23:15)
[2020-10-10] MEDS: MEROPENEM 1GRAM 1 GM in SODIUM CHLORIDE 0.9% 100 ML 100 ML IV SCH ×3 (05:07→21:02)
[2020-10-10] MEDS: FENTANYL 2000MCG/NS 250 250 ML IV PRN ×3 (05:19→19:30)
[2020-10-10] MEDS: VANCOMYCIN 1GM/NS 250 ML 250 ML IV SCH ×2 (05:30→17:30)
[2020-10-10] MEDS: METOCLOPRAMIDE HCL 10 MG/2ML VIAL IV SCH ×4 (05:43→23:47)
[2020-10-10 06:26] LABS: BASOPHILS # (AUTO) 0.1 (0.0-0.1); BASOPHILS % 0.6 % (0.0-1.0); EOSINOPHILS # (AUTO) 0.4 (0.0-0.4); EOSINOPHILS % 1.6 % (0.0-6.0); HEMATOCRIT 26.9 % (38.2-49.6); LYMPHOCYTES # (AUTO) 2.4 (1.0-3.2); LYMPHOCYTES % 10.8 % (18.0-39.1); MEAN CORPUSCULAR HEMOGLOBIN 28.7 pg (28-32); MEAN CORPUSCULAR HGB CONC 29.7 g/dL (31-35); MEAN CORPUSCULAR VOLUME 96.4 fL (81-99); MONOCYTES # (AUTO) 1.7 (0.2-0.8); MONOCYTES % 7.7 % (4.4-11.3); NEUTROPHILS % 72.9 % (38.7-80.0); PLATELET COUNT 282 x10e3/uL (140-360); RED BLOOD COUNT 2.79 x10e6/uL (4.3-5.7); RED CELL DISTRIBUTION WIDTH 18.8 % (11.7-14.4)
[2020-10-10 06:47] LABS: ALANINE AMINOTRANSFERASE 398 IU/L (0-55); ALBUMIN 3.3 g/dL (3.5-5.0); ALBUMIN/GLOBULIN RATIO 0.8 (0.8-2.0); ALKALINE PHOSPHATASE 173 IU/L (40-150); ANION GAP 17.6 mmol/L (8-16); BLOOD UREA NITROGEN 46 mg/dL (7-26); BUN/CREATININE RATIO 40 (6-25); CALCIUM 8.6 mg/dL (8.4-10.2); CHLORIDE 92 mmol/L (98-107); CREATININE, SERUM 1.14 mg/dL (0.72-1.25); EST GLOMERULAR FILTRATION RATE > 60 ML/MIN (60-); GLUCOSE 92 mg/dL (74-118); POTASSIUM 3.6 mmol/L (3.5-5.1); SODIUM 149 mmol/L (136-145)
[2020-10-10 06:54] LABS: CARBON DIOXIDE 43 mmol/L (22-29)
[2020-10-10] MEDS: KCL 20 MEQ PACKET/ ORAL SOLN NG SCH ×2 (08:15→18:17)
[2020-10-10] MEDS: DOCUSATE SODIUM LIQD 100 MG/10 ML UDC NG SCH ×2 (08:15→18:17)
[2020-10-10] MEDS: FLUCONAZOLE 400MG/200ML BAG 200 ML IV SCH (08:15)
[2020-10-10] MEDS: ACETAZOLAMIDE 500 MG CAP PO SCH ×2 (08:15→18:17)
[2020-10-10] MEDS: FAMOTIDINE 20 MG/2 ML VIAL IV SCH ×2 (08:15→18:17)
[2020-10-10] MEDS: BALSAM PERU/CASTOR OIL 60 GM OINT...G. TP SCH (08:16)
[2020-10-10] MEDS: ENOXAPARIN SOD INJ 40 MG/0.4 ML SYR SC SCH ×2 (08:16→20:19)
[2020-10-10 08:39] LABS: ABG HCO3 45 mmol/L (22-26); ABG PCO2 87 mmHg (35-45); ABG PH 7.32 (7.35-7.45); ABG PO2 65 mmHg (80-105); ABG TCO2 47
[2020-10-10] MEDS: ASPIRIN 81 MG CHEW TAB NG SCH (09:47)
[2020-10-10 12:41] LABS: BAND NEUTROPHILS % (MANUAL) 4 %; EOSINOPHILS % (MANUAL) 2 % (0-7); LYMPHOCYTES % (MANUAL) 16 % (19-48); MONOCYTES % (MANUAL) 3 % (3.4-9.0); MYELOCYTES % (MANUAL) 1 % (0-0); NEUTROPHILS % (MANUAL) 73 % (40-74); PROMYELOCYTES % (MANUAL) 1 % (0-0)
[2020-10-10 12:42] LABS: HYPOCHROMASIA MODERATE; PLATELET ESTIMATE ADEQUATE; PLATELET MORPHOLOGY COMMENT NORMAL; RBC MORPHOLOGY COMMENT ABNORMAL
[2020-10-11] VITALS (26 sets, daily range): BP systolic 111–140; BP diastolic 62–85
[2020-10-11] MEDS: FENTANYL 2000MCG/NS 250 250 ML IV PRN ×2 (01:54→08:56)
[2020-10-11] MEDS: FUROSEMIDE INJ 100 MG in SODIUM CHLORIDE 0.9% 100 ML 90 ML IV SCH ×4 (05:37→22:05)
[2020-10-11] MEDS: MEROPENEM 1GRAM 1 GM in SODIUM CHLORIDE 0.9% 100 ML 100 ML IV SCH ×3 (05:37→21:11)
[2020-10-11] MEDS: METOCLOPRAMIDE HCL 10 MG/2ML VIAL IV SCH ×3 (05:37→18:00)
[2020-10-11] MEDS: MIDAZOLAM HCL 5MG/ML 10ML VIAL 100 ML IV PRN ×4 (05:40→19:30)
[2020-10-11 06:02] LABS: BASOPHILS # (AUTO) 0.1 (0.0-0.1); BASOPHILS % 0.4 % (0.0-1.0); EOSINOPHILS # (AUTO) 0.5 (0.0-0.4); EOSINOPHILS % 2.3 % (0.0-6.0); HEMATOCRIT 27.5 % (38.2-49.6); HEMOGLOBIN 7.8 g/dL (14.0-18.0); LYMPHOCYTES # (AUTO) 2.2 (1.0-3.2); MEAN CORPUSCULAR HEMOGLOBIN 28.2 pg (28-32); MEAN CORPUSCULAR HGB CONC 28.4 g/dL (31-35); MEAN CORPUSCULAR VOLUME 99.3 fL (81-99); MONOCYTES # (AUTO) 1.9 (0.2-0.8); MONOCYTES % 9.5 % (4.4-11.3); NEUTROPHILS # (AUTO) 14.4 (2.1-6.9); NEUTROPHILS % 70.7 % (38.7-80.0); PLATELET COUNT 307 x10e3/uL (140-360); RED BLOOD COUNT 2.77 x10e6/uL (4.3-5.7)
[2020-10-11 06:18] LABS: ALBUMIN 3.2 g/dL (3.5-5.0); ALBUMIN/GLOBULIN RATIO 0.7 (0.8-2.0); ANION GAP 17.8 mmol/L (8-16); CALCIUM 8.9 mg/dL (8.4-10.2); CREATININE, SERUM 1.71 mg/dL (0.72-1.25); POTASSIUM 4.8 mmol/L (3.5-5.1)
[2020-10-11] MEDS: KCL 20 MEQ PACKET/ ORAL SOLN NG SCH (08:06)
[2020-10-11] MEDS: ASPIRIN 81 MG CHEW TAB NG SCH (08:18)
[2020-10-11] MEDS: FAMOTIDINE 20 MG/2 ML VIAL IV SCH ×2 (08:18→18:00)
[2020-10-11] MEDS: ENOXAPARIN SOD INJ 40 MG/0.4 ML SYR SC SCH ×2 (08:18→20:44)
[2020-10-11] MEDS: ACETAZOLAMIDE 250 MG TAB NG SCH ×2 (08:18→18:00)
[2020-10-11] MEDS: DOCUSATE SODIUM LIQD 100 MG/10 ML UDC NG SCH ×2 (08:18→18:00)
[2020-10-11] MEDS: FLUCONAZOLE 400MG/200ML BAG 200 ML IV SCH (08:18)
[2020-10-11] MEDS: BALSAM PERU/CASTOR OIL 60 GM OINT...G. TP SCH (08:19)
[2020-10-11 08:23] LABS: BAND NEUTROPHILS % (MANUAL) 3 %; EOSINOPHILS % (MANUAL) 5 % (0-7); LYMPHOCYTES % (MANUAL) 10 % (19-48); MONOCYTES % (MANUAL) 11 % (3.4-9.0); MYELOCYTES % (MANUAL) 3 % (0-0); NEUTROPHILS % (MANUAL) 67 % (40-74); PLATELET ESTIMATE ADEQUATE
[2020-10-11 08:24] LABS: ANISOCYTOSIS SLIGHT; HYPOCHROMASIA SLIGHT; POLYCHROMASIA FEW; RBC MORPHOLOGY COMMENT ABNORMAL
[2020-10-11 08:25] LABS: PLATELET MORPHOLOGY COMMENT FEW GIANT
[2020-10-11 08:26] LABS: PLATELET CLUMPS FEW
[2020-10-11] MEDS: ROCURONIUM BROMIDE 1,250 MG in SODIUM CHLORIDE 0.9% 250ML 125 ML IV SCH (08:57)
[2020-10-11 09:11] LABS: ABG PH 7.28 (7.35-7.45)
[2020-10-11 09:12] LABS: ABG HCO3 42 mmol/L (22-26); ABG PCO2 89 mmHg (35-45); ABG PO2 70 mmHg (80-105); ABG TCO2 44
[2020-10-11] MEDS ORDERED: MANNITOL 25% 12.5GM/50 ML VIAL IV PRN (10:45)
[2020-10-11] MEDS: FENTANYL 2000MCG/NS 250 250 ML IV SCH ×3 (18:53→23:05)
[2020-10-12] VITALS (24 sets, daily range): BP systolic 82–138; BP diastolic 52–89
[2020-10-12] MEDS: MIDAZOLAM HCL 5MG/ML 10ML VIAL 100 ML IV PRN ×3 (00:45→11:00)
[2020-10-12] MEDS: MEROPENEM 1GRAM 1 GM in SODIUM CHLORIDE 0.9% 100 ML 100 ML IV SCH (06:00)
[2020-10-12] MEDS: FUROSEMIDE INJ 100 MG in SODIUM CHLORIDE 0.9% 100 ML 90 ML IV SCH (06:00)
[2020-10-12] MEDS: METOCLOPRAMIDE HCL 10 MG/2ML VIAL IV SCH ×5 (06:00→23:08)
[2020-10-12 06:17] LABS: BASOPHILS # (AUTO) 0.1 (0.0-0.1); BASOPHILS % 0.5 % (0.0-1.0); EOSINOPHILS % 0.1 % (0.0-6.0); HEMATOCRIT 28.1 % (38.2-49.6); HEMOGLOBIN 7.7 g/dL (14.0-18.0); LYMPHOCYTES # (AUTO) 3.1 (1.0-3.2); LYMPHOCYTES % 10.9 % (18.0-39.1); MEAN CORPUSCULAR HEMOGLOBIN 28.5 pg (28-32); MEAN CORPUSCULAR HGB CONC 27.4 g/dL (31-35); MEAN CORPUSCULAR VOLUME 104.1 fL (81-99); MONOCYTES # (AUTO) 2.3 (0.2-0.8); MONOCYTES % 8.4 % (4.4-11.3); NEUTROPHILS # (AUTO) 21.1 (2.1-6.9); NEUTROPHILS % 75.3 % (38.7-80.0); PLATELET COUNT 324 x10e3/uL (140-360)
[2020-10-12] MEDS: FENTANYL 2000MCG/NS 250 250 ML IV SCH ×2 (06:52→16:00)
[2020-10-12 06:56] LABS: ALBUMIN 3.2 g/dL (3.5-5.0); ALBUMIN/GLOBULIN RATIO 0.6 (0.8-2.0); CREATININE, SERUM 2.39 mg/dL (0.72-1.25)
[2020-10-12 07:55] LABS: BAND NEUTROPHILS % (MANUAL) 3 %; LYMPHOCYTES % (MANUAL) 11 % (19-48); MONOCYTES % (MANUAL) 7 % (3.4-9.0); NEUTROPHILS % (MANUAL) 79 % (40-74)
[2020-10-12 07:57] LABS: PLATELET ESTIMATE ADEQUATE; PLATELET MORPHOLOGY COMMENT NORMAL; POLYCHROMASIA FEW; RBC MORPHOLOGY COMMENT ABNORMAL
[2020-10-12] MEDS: ENOXAPARIN SOD INJ 40 MG/0.4 ML SYR SC SCH ×2 (08:35→21:31)
[2020-10-12] MEDS: VASOPRESSIN 60 UNIT in DEXTROSE 5% 50ML 57 ML IV SCH (08:55)
[2020-10-12] MEDS ORDERED: ALBUMIN 25% 25GM 100ML 0.25 GM/ML BTL IV SCH (12:15)
[2020-10-12] MEDS: ALBUMIN 25% 25GM 100ML 100 ML IV SCH ×3 (12:45→23:08)
[2020-10-12] MEDS: BALSAM PERU/CASTOR OIL 60 GM OINT...G. TP SCH (13:25)
[2020-10-12] MEDS: FAMOTIDINE 20 MG/2 ML VIAL IV SCH ×2 (13:25→16:56)
[2020-10-12] MEDS: DOCUSATE SODIUM LIQD 100 MG/10 ML UDC NG SCH ×2 (13:25→16:56)
[2020-10-12] MEDS: ASPIRIN 81 MG CHEW TAB NG SCH (13:25)
[2020-10-12] MEDS ORDERED: SODIUM CHLORIDE 0.9% 250ML 250 ML IV ONE (16:00)
[2020-10-12] MEDS ORDERED: ACETAMINOPHEN 325 MG TAB PO ONE (16:00)
[2020-10-12] MEDS: MICAFUNGIN SODIUM 100 ML IV SCH (16:35)
[2020-10-12] MEDS: NOREPINEPHRINE 8 MG/D5W 250 ML 250 ML IV SCH (16:38)
[2020-10-12] MEDS ORDERED: MEROPENEM 1GRAM 1 GM in SODIUM CHLORIDE 0.9% 100 ML 100 ML IV SCH (17:00)
[2020-10-12] MEDS: ROCURONIUM BROMIDE 1,250 MG in SODIUM CHLORIDE 0.9% 250ML 125 ML IV SCH (17:30)
[2020-10-12] MEDS: LINEZOLID 600 MG/D5W 300ML 300 ML IV SCH (18:54)
[2020-10-13] VITALS (25 sets, daily range): BP systolic 94–146; BP diastolic 56–82
[2020-10-13] MEDS: ALBUMIN 25% 25GM 100ML 100 ML IV SCH (05:20)
[2020-10-13] MEDS: LINEZOLID 600 MG/D5W 300ML 300 ML IV SCH ×2 (05:20→17:36)
[2020-10-13] MEDS: METOCLOPRAMIDE HCL 10 MG/2ML VIAL IV SCH ×4 (05:20→23:39)
[2020-10-13 06:17] LABS: BASOPHILS # (AUTO) 0.2 (0.0-0.1); BASOPHILS % 0.6 % (0.0-1.0); HEMATOCRIT 27.3 % (38.2-49.6); HEMOGLOBIN 7.6 g/dL (14.0-18.0); LYMPHOCYTES # (AUTO) 3.5 (1.0-3.2); LYMPHOCYTES % 13.9 % (18.0-39.1); MEAN CORPUSCULAR HEMOGLOBIN 27.7 pg (28-32); MEAN CORPUSCULAR HGB CONC 27.8 g/dL (31-35); MEAN CORPUSCULAR VOLUME 99.6 fL (81-99); MONOCYTES # (AUTO) 2.5 (0.2-0.8); MONOCYTES % 9.7 % (4.4-11.3); NEUTROPHILS # (AUTO) 17.2 (2.1-6.9); NEUTROPHILS % 67.9 % (38.7-80.0); PLATELET COUNT 355 x10e3/uL (140-360); RED BLOOD COUNT 2.74 x10e6/uL (4.3-5.7); RED CELL DISTRIBUTION WIDTH 19.4 % (11.7-14.4)
[2020-10-13 06:46] LABS: ALBUMIN 3.7 g/dL (3.5-5.0); ALBUMIN/GLOBULIN RATIO 0.8 (0.8-2.0); ANION GAP 19.3 mmol/L (8-16); CREATININE, SERUM 2.3 mg/dL (0.72-1.25); POTASSIUM 5.3 mmol/L (3.5-5.1)
[2020-10-13 07:54] LABS: ABG PCO2 82 mmHg (35-45); ABG PH 7.21 (7.35-7.45)
[2020-10-13 07:55] LABS: ABG HCO3 32 mmol/L (22-26); ABG PO2 65 mmHg (80-105); ABG TCO2 35
[2020-10-13] MEDS: VASOPRESSIN 60 UNIT in DEXTROSE 5% 50ML 57 ML IV SCH (08:15)
[2020-10-13 08:17] LABS: BAND NEUTROPHILS % (MANUAL) 1 %; LYMPHOCYTES % (MANUAL) 17 % (19-48); METAMYELOCYTES % (MANUAL) 3 % (0-0); MONOCYTES % (MANUAL) 5 % (3.4-9.0); MYELOCYTES % (MANUAL) 2 % (0-0); NEUTROPHILS % (MANUAL) 71 % (40-74); NUCLEATED RED BLOOD CELLS 8; PROMYELOCYTES % (MANUAL) 1 % (0-0)
[2020-10-13 08:21] LABS: HYPOCHROMASIA SLIG; MICROCYTOSIS SLIG; PLATELET ESTIMATE ADEQUATE; PLATELET MORPHOLOGY COMMENT FEW LARGE; POLYCHROMASIA FEW; RBC MORPHOLOGY COMMENT ABNORMAL
[2020-10-13 08:22] LABS: ANISOCYTOSIS SLIG; POIKILOCYTOSIS SLIGHT; STOMATOCYTES SLIGHT
[2020-10-13] MEDS: LACTULOSE SYRUP 20 GM/30 ML UDC PO PRN ×2 (08:50→15:34)
[2020-10-13] MEDS: MIDAZOLAM HCL 5MG/ML 10ML VIAL 100 ML IV PRN ×2 (09:00→14:04)
[2020-10-13] MEDS: FENTANYL 2000MCG/NS 250 250 ML IV SCH ×2 (10:00→20:35)
[2020-10-13] MEDS ORDERED: SODIUM CHLORIDE 0.9% 250ML 250 ML IV ONE (10:00)
[2020-10-13] MEDS: BALSAM PERU/CASTOR OIL 60 GM OINT...G. TP SCH (10:34)
[2020-10-13] MEDS: FAMOTIDINE 20 MG/2 ML VIAL IV SCH ×2 (10:34→17:35)
[2020-10-13] MEDS: DOCUSATE SODIUM LIQD 100 MG/10 ML UDC NG SCH ×2 (10:34→17:35)
[2020-10-13] MEDS: ASPIRIN 81 MG CHEW TAB NG SCH (10:34)
[2020-10-13] MEDS: ROCURONIUM BROMIDE 1,250 MG in SODIUM CHLORIDE 0.9% 250ML 125 ML IV SCH (10:59)
[2020-10-13] MEDS: MEROPENEM 1GRAM 1 GM in SODIUM CHLORIDE 0.9% 100 ML 100 ML IV SCH (15:32)
[2020-10-13] MEDS: NOREPINEPHRINE 8 MG/D5W 250 ML 250 ML IV SCH (16:30)
[2020-10-13] MEDS: MICAFUNGIN SODIUM 100 ML IV SCH (16:52)
[2020-10-13 17:50] LABS: ABG HCO3 32 mmol/L (22-26); ABG PCO2 92 mmHg (35-45); ABG PH 7.15 (7.35-7.45); ABG PO2 73 mmHg (80-105); ABG TCO2 35
[2020-10-13] MEDS ORDERED: HEPARIN 25,000 UNIT 1,500 UNIT in DEXTROSE 5% 250ML 250 ML IV SCH (18:00)
[2020-10-13] MEDS: HEPARIN 25,000 UNIT 1,500 UNIT in DEXTROSE 5% 250ML 250 ML IV SCH (20:33)
[2020-10-14] VITALS (25 sets, daily range): BP systolic 95–139; BP diastolic 33–73
[2020-10-14] MEDS: FENTANYL 2000MCG/NS 250 250 ML IV SCH ×3 (00:42→19:52)
[2020-10-14] MEDS: METOCLOPRAMIDE HCL 10 MG/2ML VIAL IV SCH ×4 (05:07→23:34)
[2020-10-14] MEDS: LINEZOLID 600 MG/D5W 300ML 300 ML IV SCH ×2 (05:07→18:27)
[2020-10-14 06:20] LABS: BASOPHILS # (AUTO) 0.1 (0.0-0.1); BASOPHILS % 0.6 % (0.0-1.0); EOSINOPHILS # (AUTO) 0.1 (0.0-0.4); EOSINOPHILS % 0.3 % (0.0-6.0); HEMATOCRIT 28.8 % (38.2-49.6); HEMOGLOBIN 8.3 g/dL (14.0-18.0); LYMPHOCYTES # (AUTO) 2.6 (1.0-3.2); LYMPHOCYTES % 11.4 % (18.0-39.1); MEAN CORPUSCULAR HEMOGLOBIN 27.8 pg (28-32); MEAN CORPUSCULAR HGB CONC 28.8 g/dL (31-35); MEAN CORPUSCULAR VOLUME 96.3 fL (81-99); MONOCYTES # (AUTO) 1.9 (0.2-0.8); MONOCYTES % 8.3 % (4.4-11.3); NEUTROPHILS # (AUTO) 16.5 (2.1-6.9); NEUTROPHILS % 71.9 % (38.7-80.0); PLATELET COUNT 281 x10e3/uL (140-360); RED BLOOD COUNT 2.99 x10e6/uL (4.3-5.7); RED CELL DISTRIBUTION WIDTH 18.9 % (11.7-14.4)
[2020-10-14 06:46] LABS: ALBUMIN 3.5 g/dL (3.5-5.0); ALBUMIN/GLOBULIN RATIO 0.7 (0.8-2.0); CALCIUM 8.9 mg/dL (8.4-10.2); CREATININE, SERUM 2.67 mg/dL (0.72-1.25)
[2020-10-14] MEDS: FAMOTIDINE 20 MG/2 ML VIAL IV SCH ×2 (07:32→18:27)
[2020-10-14] MEDS: ASPIRIN 81 MG CHEW TAB NG SCH (07:32)
[2020-10-14] MEDS: BALSAM PERU/CASTOR OIL 60 GM OINT...G. TP SCH (07:32)
[2020-10-14] MEDS: DOCUSATE SODIUM LIQD 100 MG/10 ML UDC NG SCH ×2 (07:32→18:27)
[2020-10-14] MEDS: VASOPRESSIN 60 UNIT in DEXTROSE 5% 50ML 57 ML IV SCH (08:15)
[2020-10-14 08:19] LABS: ABG HCO3 29 mmol/L (22-26); ABG PCO2 74 mmHg (35-45); ABG PO2 57 mmHg (80-105); ABG TCO2 31
[2020-10-14] MEDS ORDERED: HEPARIN SOD (PORCINE) 1000 UNIT/ML SDV IV PRN (12:45)
[2020-10-14] MEDS ORDERED: ALBUMIN 25% 12.5GM 0.25 GM/ML BTL IV PRN (12:45)
[2020-10-14] MEDS: MIDAZOLAM HCL 5MG/ML 10ML VIAL 100 ML IV PRN ×2 (15:16→19:54)
[2020-10-14] MEDS: MICAFUNGIN SODIUM 100 ML IV SCH (16:54)
[2020-10-14] MEDS: MEROPENEM 1GRAM 1 GM in SODIUM CHLORIDE 0.9% 100 ML 100 ML IV SCH (16:54)
[2020-10-14 17:44] LABS: ABG HCO3 30 mmol/L (22-26); ABG PCO2 82 mmHg (35-45); ABG PH 7.17 (7.35-7.45); ABG PO2 47 mmHg (80-105); ABG TCO2 32
[2020-10-14] MEDS ORDERED: SODIUM BICARBONATE 8.4% INJ 50 ML SYR IV STA (17:51)
[2020-10-14] MEDS ORDERED: SODIUM BICARBONATE 8.4% INJ 50 ML SYR IV ONE (17:51)
[2020-10-14] MEDS ORDERED: DEXTROSE 5% 1,000 ML IV ONE (18:00)
[2020-10-14] MEDS: HEPARIN 25,000 UNIT 1,500 UNIT in DEXTROSE 5% 250ML 250 ML IV SCH (19:52)
[2020-10-14] MEDS: ROCURONIUM BROMIDE 1,250 MG in SODIUM CHLORIDE 0.9% 250ML 125 ML IV SCH (19:52)
[2020-10-14] MEDS: SODIUM BICARBONATE 8.4% SYRING 150 ML in DEXTROSE 5% 1,000 ML IV SCH (20:28)
[2020-10-14 23:06] LABS: BASOPHILS # (AUTO) 0.2 (0.0-0.1); BASOPHILS % 0.5 % (0.0-1.0); EOSINOPHILS # (AUTO) 0.1 (0.0-0.4); EOSINOPHILS % 0.3 % (0.0-6.0); HEMATOCRIT 30.1 % (38.2-49.6); HEMOGLOBIN 8.7 g/dL (14.0-18.0); LYMPHOCYTES # (AUTO) 8.8 (1.0-3.2); LYMPHOCYTES % 26.2 % (18.0-39.1); MEAN CORPUSCULAR HEMOGLOBIN 28.8 pg (28-32); MEAN CORPUSCULAR HGB CONC 28.9 g/dL (31-35); MEAN CORPUSCULAR VOLUME 99.7 fL (81-99); MONOCYTES # (AUTO) 2.8 (0.2-0.8); MONOCYTES % 8.4 % (4.4-11.3); NEUTROPHILS # (AUTO) 19.3 (2.1-6.9); NEUTROPHILS % 57.5 % (38.7-80.0); PLATELET COUNT 293 x10e3/uL (140-360); RED BLOOD COUNT 3.02 x10e6/uL (4.3-5.7); RED CELL DISTRIBUTION WIDTH 18.8 % (11.7-14.4)
[2020-10-14 23:20] LABS: ALBUMIN 3.6 g/dL (3.5-5.0); ALBUMIN/GLOBULIN RATIO 0.7 (0.8-2.0); ANION GAP 22.6 mmol/L (8-16); CREATININE, SERUM 2.8 mg/dL (0.72-1.25); MAGNESIUM 2.6 MG/DL (1.3-2.1); PHOSPHORUS 7.7 MG/DL (2.3-4.7); POTASSIUM 4.6 mmol/L (3.5-5.1)
[2020-10-14 23:24] LABS: CREATINE KINASE MB 4.6 ng/mL (0-5.0)
[2020-10-14 23:48] LABS: INR 1.09; PROTHROMBIN TIME 14.8 seconds (11.9-14.5)
[2020-10-14 23:50] LABS: PARTIAL THROMBOPLASTIN TIME 65.3 seconds (23.8-35.5)
[2020-10-15] VITALS (16 sets, daily range): BP systolic 46–123; BP diastolic 24–56
[2020-10-15] MEDS ORDERED: SODIUM CHLORIDE 0.9% 250ML 500 ML ONE (00:52)
[2020-10-15] MEDS ORDERED: EPINEPHRINE HCL 1:1000 1ML 1 MG/ML AMP ONE ×2 (00:58→17:42)
[2020-10-15] MEDS: METOCLOPRAMIDE HCL 10 MG/2ML VIAL IV SCH ×3 (05:12→16:44)
[2020-10-15] MEDS: LINEZOLID 600 MG/D5W 300ML 300 ML IV SCH (05:12)
[2020-10-15 06:48] LABS: MAGNESIUM 3.2 MG/DL (1.3-2.1); PHOSPHORUS 11.4 MG/DL (2.3-4.7)
[2020-10-15 07:00] LABS: BASOPHILS # (AUTO) 0.4 (0.0-0.1); BASOPHILS % 1.1 % (0.0-1.0); EOSINOPHILS # (AUTO) 0.2 (0.0-0.4); EOSINOPHILS % 0.6 % (0.0-6.0); HEMATOCRIT 32.7 % (38.2-49.6); HEMOGLOBIN 9.2 g/dL (14.0-18.0); LYMPHOCYTES # (AUTO) 4.9 (1.0-3.2); MEAN CORPUSCULAR HGB CONC 28.1 g/dL (31-35); MEAN CORPUSCULAR VOLUME 103.2 fL (81-99); MONOCYTES # (AUTO) 1.9 (0.2-0.8); MONOCYTES % 6.3 % (4.4-11.3); NEUTROPHILS % 58.5 % (38.7-80.0); PLATELET COUNT 227 x10e3/uL (140-360); RED BLOOD COUNT 3.17 x10e6/uL (4.3-5.7)
[2020-10-15 07:07] LABS: ALBUMIN 3.3 g/dL (3.5-5.0); ALBUMIN/GLOBULIN RATIO 0.7 (0.8-2.0); ANION GAP 27.5 mmol/L (8-16); CALCIUM 7.8 mg/dL (8.4-10.2); CREATININE, SERUM 3.39 mg/dL (0.72-1.25)
[2020-10-15 07:09] LABS: POTASSIUM 6.5 mmol/L (3.5-5.1)
[2020-10-15] MEDS ORDERED: SODIUM BICARBONATE 8.4% SYRING 200 ML ONE (07:59)
[2020-10-15] MEDS: MIDAZOLAM HCL 5MG/ML 10ML VIAL 100 ML IV PRN ×2 (08:00→11:30)
[2020-10-15 08:32] LABS: BAND NEUTROPHILS % (MANUAL) 6 %; EOSINOPHILS % (MANUAL) 1 % (0-7); LYMPHOCYTES % (MANUAL) 17 % (19-48); METAMYELOCYTES % (MANUAL) 2 % (0-0); MONOCYTES % (MANUAL) 8 % (3.4-9.0); MYELOCYTES % (MANUAL) 13 % (0-0); NEUTROPHILS % (MANUAL) 53 % (40-74); NUCLEATED RED BLOOD CELLS 38
[2020-10-15 08:33] LABS: ANISOCYTOSIS MODERATE; HYPOCHROMASIA MODERATE; PLATELET ESTIMATE ADEQUATE; PLATELET MORPHOLOGY COMMENT FEW LARGE; POLYCHROMASIA MODERATE; RBC MORPHOLOGY COMMENT ABNORMAL
[2020-10-15] MEDS: DOCUSATE SODIUM LIQD 100 MG/10 ML UDC NG SCH ×2 (09:00→16:43)
[2020-10-15] MEDS: BALSAM PERU/CASTOR OIL 60 GM OINT...G. TP SCH (09:05)
[2020-10-15 09:32] LABS: BASOPHILS # (AUTO) 0.3 (0.0-0.1); BASOPHILS % 1.1 % (0.0-1.0); EOSINOPHILS # (AUTO) 0.2 (0.0-0.4); EOSINOPHILS % 0.8 % (0.0-6.0); HEMATOCRIT 27.3 % (38.2-49.6); HEMOGLOBIN 7.5 g/dL (14.0-18.0); LYMPHOCYTES # (AUTO) 5.1 (1.0-3.2); LYMPHOCYTES % 19.5 % (18.0-39.1); MEAN CORPUSCULAR HGB CONC 27.5 g/dL (31-35); MEAN CORPUSCULAR VOLUME 105.4 fL (81-99); MONOCYTES # (AUTO) 1.5 (0.2-0.8); MONOCYTES % 5.6 % (4.4-11.3); NEUTROPHILS # (AUTO) 13.4 (2.1-6.9); NEUTROPHILS % 51.5 % (38.7-80.0); PLATELET COUNT 146 x10e3/uL (140-360); RED BLOOD COUNT 2.59 x10e6/uL (4.3-5.7); RED CELL DISTRIBUTION WIDTH 18.2 % (11.7-14.4)
[2020-10-15 09:45] LABS: INR 3.57; PROTHROMBIN TIME 38.8 seconds (11.9-14.5)
[2020-10-15] MEDS ORDERED: EPINEPHRINE HCL 1:1000 1ML 4 MG in DEXTROSE 5% 250ML 250 ML IV PRN (09:45)
[2020-10-15 09:51] LABS: ALBUMIN 2.9 g/dL (3.5-5.0); ALBUMIN/GLOBULIN RATIO 0.8 (0.8-2.0); ANION GAP 37.1 mmol/L (8-16); CALCIUM 7.7 mg/dL (8.4-10.2); CREATININE, SERUM 3.22 mg/dL (0.72-1.25)
[2020-10-15 09:52] LABS: PARTIAL THROMBOPLASTIN TIME 165.5 seconds (23.8-35.5)
[2020-10-15 09:53] LABS: POTASSIUM 6.1 mmol/L (3.5-5.1)
[2020-10-15] MEDS ORDERED: DEXTROSE 50% SYRINGE 50 ML IV STA (09:55)
[2020-10-15] MEDS ORDERED: NOREPINEPHRINE 8 MG/D5W 250 ML 250 ML IV PRN (10:00)
[2020-10-15] MEDS ORDERED: SOD POLYSTYRENE SULFONATE SUSP 15 GM/60 ML BTL PO NR (10:00)
[2020-10-15] MEDS: METRONIDAZOLE 500MG/NS 100ML 100 ML IV SCH ×2 (10:06→13:29)
[2020-10-15] MEDS ORDERED: SODIUM BICARBONATE 8.4% 50 ML VIAL IV NR (10:15)
[2020-10-15] MEDS: ASPIRIN 81 MG CHEW TAB NG SCH (10:17)
[2020-10-15] MEDS: VANCOMYCIN 250MG/5ML ORAL SOLN PO SCH ×2 (10:59→16:44)
[2020-10-15] MEDS: FENTANYL 2000MCG/NS 250 250 ML IV SCH (11:30)
[2020-10-15] MEDS: SODIUM BICARBONATE 8.4% SYRING 150 ML in DEXTROSE 5% 1,000 ML IV SCH (11:47)
[2020-10-15] MEDS ORDERED: SODIUM BICARBONATE 8.4% 50 ML VIAL IV STA ×2 (12:00→14:25)
[2020-10-15] MEDS ORDERED: SODIUM BICARBONATE 8.4% INJ 50 ML SYR IV STA ×2 (12:24→13:55)
[2020-10-15] MEDS ORDERED: FENTANYL 2,000 MCG/250 ML BAG ONE (13:03)
[2020-10-15] MEDS ORDERED: MIDAZOLAM HCL 5MG/ML 10ML VIAL 100 ML BAG IV ONE (13:03)
[2020-10-15] MEDS ORDERED: CALCIUM CHLORIDE 10% 1.36 MEQ/ML 10ML SYR IV STA (13:55)
[2020-10-15] MEDS ORDERED: ALBUMIN 25% 12.5GM 0.25 GM/ML BTL IV ONE (14:00)
[2020-10-15] MEDS ORDERED: SODIUM BICARBONATE 8.4% SYRING 100 ML ONE (15:40)
[2020-10-15 15:46] LABS: BAND NEUTROPHILS % (MANUAL) 4 %; LYMPHOCYTES % (MANUAL) 29 % (19-48); METAMYELOCYTES % (MANUAL) 4 % (0-0); MONOCYTES % (MANUAL) 15 % (3.4-9.0); MYELOCYTES % (MANUAL) 13 % (0-0); NEUTROPHILS % (MANUAL) 33 % (40-74); NUCLEATED RED BLOOD CELLS 46; PROMYELOCYTES % (MANUAL) 2 % (0-0)
[2020-10-15 15:51] LABS: HYPOCHROMASIA SLIGHT; POLYCHROMASIA MODERATE
[2020-10-15 15:52] LABS: ANISOCYTOSIS SLIGHT
[2020-10-15 15:54] LABS: PLATELET ESTIMATE ADEQUATE
[2020-10-15 15:55] LABS: PLATELET MORPHOLOGY COMMENT FEW GIANT
[2020-10-15] MEDS ORDERED: DEXTROSE 10% 1,000 ML IV SCH (16:00)
[2020-10-15] MEDS: MEROPENEM 1GRAM 1 GM in SODIUM CHLORIDE 0.9% 100 ML 100 ML IV SCH (16:42)
[2020-10-15] MEDS: MICAFUNGIN SODIUM 100 ML IV SCH (16:43)
[2020-10-15] MEDS ORDERED: CALCIUM CHLORIDE 10% 1.36 MEQ/ML 10ML SYR IV ONE (17:42)
[2020-10-15] MEDS ORDERED: SODIUM BICARBONATE 8.4% INJ 50 ML SYR ONE (17:42)
[2020-10-15] MEDS ORDERED: ATROPINE SULFATE 0.1 MG/ML 10ML SYR ONE (17:42)
[2020-10-15] MEDS ORDERED: DOPAmine/D5W 1.6 MG/ML 400 MG/250ML PREMIX IV ONE (17:42)
[2020-10-15] MEDS ORDERED: EPINEPHRINE HCL SYRINGE ONE (17:42)
[2020-10-15] MEDS ORDERED: SODIUM CHLORIDE FLUSH 10 ML SYR ONE (17:42)
[2020-10-15] MEDS ORDERED: DEXTROSE 5% 250 ML BAG IV ONE (17:42)
[2020-10-15] MEDS ORDERED: DEXTROSE 50% SYRINGE 50 ML IV ONE (17:42)
== END 2020-10-15 21:13 | disposition expired | DRG 870 ==
LOC: ER 13:29 → ERHOLD 14:53 → ICU 18:24 → COVIDICU 09-19 07:53
PROVIDERS: ADMIT Internal Medicine; ATTEND Internal Medicine
PROC: XW14325 Transfusion of Convalescent Plasma (Nonautologous) into Central Vein, Percutaneous Approach, New Technology Group 5 (ICD-10-PCS; 2020-08-31)
PROC: XW033E5 Introduction of Remdesivir Anti-infective into Peripheral Vein, Percutaneous Approach, New Technology Group 5 (ICD-10-PCS; 2020-08-31)
PROC: 3E0333Z Introduction of Anti-inflammatory into Peripheral Vein, Percutaneous Approach (ICD-10-PCS; 2020-08-31)
PROC: 8E0ZXY6 Isolation (ICD-10-PCS; 2020-08-31)
PROC: 5A1955Z Respiratory Ventilation, Greater than 96 Consecutive Hours (ICD-10-PCS; principal; 2020-09-07)
PROC: 0BH17EZ Insertion of Endotracheal Airway into Trachea, Via Natural or Artificial Opening (ICD-10-PCS; 2020-09-07)
PROC: 0W9B30Z Drainage of Left Pleural Cavity with Drainage Device, Percutaneous Approach (ICD-10-PCS; 2020-09-07)
PROC: 02HV33Z Insertion of Infusion Device into Superior Vena Cava, Percutaneous Approach (ICD-10-PCS; 2020-09-07)
PROC: B548ZZA Ultrasonography of Superior Vena Cava, Guidance (ICD-10-PCS; 2020-09-07)
PROC: 0W9930Z Drainage of Right Pleural Cavity with Drainage Device, Percutaneous Approach (ICD-10-PCS; 2020-09-07)
PROC: 03HY32Z Insertion of Monitoring Device into Upper Artery, Percutaneous Approach (ICD-10-PCS; 2020-09-08)
PROC: 4A133B1 Monitoring of Arterial Pressure, Peripheral, Percutaneous Approach (ICD-10-PCS; 2020-09-08)
PROC: 4A133J1 Monitoring of Arterial Pulse, Peripheral, Percutaneous Approach (ICD-10-PCS; 2020-09-08)
PROC: 0W9B00Z Drainage of Left Pleural Cavity with Drainage Device, Open Approach (ICD-10-PCS; 2020-09-26)
PROC: 0W9900Z Drainage of Right Pleural Cavity with Drainage Device, Open Approach (ICD-10-PCS; 2020-09-26)
PROC: 0W9B00Z Drainage of Left Pleural Cavity with Drainage Device, Open Approach (ICD-10-PCS; 2020-09-27)
PROC: 03HB33Z Insertion of Infusion Device into Right Radial Artery, Percutaneous Approach (ICD-10-PCS; 2020-10-02)
PROC: 3E043XZ Introduction of Vasopressor into Central Vein, Percutaneous Approach (ICD-10-PCS; 2020-10-08)
PROC: 0W9B00Z Drainage of Left Pleural Cavity with Drainage Device, Open Approach (ICD-10-PCS; 2020-10-09)
PROC: 02HV33Z Insertion of Infusion Device into Superior Vena Cava, Percutaneous Approach (ICD-10-PCS; 2020-10-09)
PROC: B548ZZA Ultrasonography of Superior Vena Cava, Guidance (ICD-10-PCS; 2020-10-09)
PROC: 5A1D70Z Performance of Urinary Filtration, Intermittent, Less than 6 Hours Per Day (ICD-10-PCS; 2020-10-09)
PROC: 30243N1 Transfusion of Nonautologous Red Blood Cells into Central Vein, Percutaneous Approach (ICD-10-PCS; 2020-10-09)
PROC: 5A1D70Z Performance of Urinary Filtration, Intermittent, Less than 6 Hours Per Day (ICD-10-PCS; 2020-10-10)
PROC: 5A1D70Z Performance of Urinary Filtration, Intermittent, Less than 6 Hours Per Day (ICD-10-PCS; 2020-10-11)
PROC: 5A1D70Z Performance of Urinary Filtration, Intermittent, Less than 6 Hours Per Day (ICD-10-PCS; 2020-10-12)
PROC: 5A1D70Z Performance of Urinary Filtration, Intermittent, Less than 6 Hours Per Day (ICD-10-PCS; 2020-10-13)
PROC: 5A1D70Z Performance of Urinary Filtration, Intermittent, Less than 6 Hours Per Day (ICD-10-PCS; 2020-10-14)
PROC: 0W9B00Z Drainage of Left Pleural Cavity with Drainage Device, Open Approach (ICD-10-PCS; 2020-10-15)
PROC: 5A1D70Z Performance of Urinary Filtration, Intermittent, Less than 6 Hours Per Day (ICD-10-PCS; 2020-10-15)
PROC: 5A12012 Performance of Cardiac Output, Single, Manual (ICD-10-PCS; 2020-10-15)
DX: A41.89 Other specified sepsis (principal); U07.1 COVID-19; J12.82 Pneumonia due to coronavirus disease 2019; J15.9 Unspecified bacterial pneumonia; J69.0 Pneumonitis due to inhalation of food and vomit; J93.0 Spontaneous tension pneumothorax; R65.21 Severe sepsis with septic shock; J80 Acute respiratory distress syndrome; B37.1 Pulmonary candidiasis; I50.31 Acute diastolic (congestive) heart failure; I21.4 Non-ST elevation (NSTEMI) myocardial infarction; N17.0 Acute kidney failure with tubular necrosis; B17.8 Other specified acute viral hepatitis; E87.1 Hypo-osmolality and hyponatremia; E44.0 Moderate protein-calorie malnutrition; E87.0 Hyperosmolality and hypernatremia; B37.89 Other sites of candidiasis; E87.4 Mixed disorder of acid-base balance; N17.9 Acute kidney failure, unspecified; A04.72 Enterocolitis due to Clostridium difficile, not specified as recurrent; R65.20 Severe sepsis without septic shock; R57.1 Hypovolemic shock; F41.9 Anxiety disorder, unspecified; E66.9 Obesity, unspecified; E88.09 Other disorders of plasma-protein metabolism, not elsewhere classified; Z68.32 Body mass index [BMI] 32.0-32.9, adult; D64.9 Anemia, unspecified; E87.6 Hypokalemia; J44.9 Chronic obstructive pulmonary disease, unspecified; K59.00 Constipation, unspecified; D63.8 Anemia in other chronic diseases classified elsewhere; I11.0 Hypertensive heart disease with heart failure; L89.816 Pressure-induced deep tissue damage of head; J98.2 Interstitial emphysema
CPT/HCPCS: 31500; 36415; 36569; 36600; 71045; 74018; 80048; 80053; 80061; 80076; 80202; 81001; 82150; 82550; 82553; 82570; 82805; 82948; 83605; 83690; 83735; 83930; 83935; 84100; 84156; 84300; 84478; 84484; 85025; 85379; 85610; 85730; 86704; 86706; 86850; 86900; 86920; 87040; 87070; 87071; 87086; 87205; 87340; 87390; 87536; 92950; 93005; 93306; 93970; 94002; 94003; 96360; 99251; 99284; G0433; G0435; J0171; J0330; J0456; J0692; J0696; J1100; J1450; J1644; J1650; J1940; J2020; J2185; J2248; J2250; J2405; J2543; J2765; J3370; J3480; J7030; J7050; J7070; J7121; J7799; P9016; P9017; P9047; U0002